=== PATIENT | male | born 1945 | race Caucasian/White ===

== ENCOUNTER → 2019-11-19 08:16 | Outpatient (BNVA) | payer MEDICARE, SELFPAY | PROVIDERS: PCP Internal Medicine; Referring Provider Internal Medicine; Visit Provider Internal Medicine | DX: I48.19 Other persistent atrial fibrillation (principal); Z51.81 Encounter for therapeutic drug level monitoring; Z79.01 Long term (current) use of anticoagulants | CPT/HCPCS: 85610; 99211 ==

== ENCOUNTER → 2019-12-07 08:31 | Outpatient (BNVA) | payer MEDICARE, SELFPAY | PROVIDERS: PCP Internal Medicine; Referring Provider Internal Medicine; Visit Provider Internal Medicine | DX: I48.19 Other persistent atrial fibrillation (principal); Z51.81 Encounter for therapeutic drug level monitoring; Z79.01 Long term (current) use of anticoagulants | CPT/HCPCS: 85610; 99211 ==

== ENCOUNTER → 2019-12-23 08:22 | Outpatient (BNVA) | payer MEDICARE, SELFPAY | PROVIDERS: PCP Internal Medicine; Referring Provider Internal Medicine; Visit Provider Internal Medicine | DX: I48.19 Other persistent atrial fibrillation (principal); I10 Essential (primary) hypertension; E78.5 Hyperlipidemia, unspecified; Z79.01 Long term (current) use of anticoagulants; Z79.899 Other long term (current) drug therapy | CPT/HCPCS: 99212 ==

== ENCOUNTER 2019-12-25 09:47 | Outpatient (REF) | payer MEDICARE, SELFPAY ==
[2019-12-25 11:49] LABS: Digoxin 0.5 ng/mL (0.8-2.0)
== END 2019-12-25 09:48 | disposition home or self-care (01) ==
LOC: HO.10HDLR 09:47
PROVIDERS: Visit Provider Internal Medicine
DX: I48.19 Other persistent atrial fibrillation (principal)
CPT/HCPCS: 80162

== ENCOUNTER → 2020-01-06 08:03 | Outpatient (BNVA) | payer MEDICARE, SELFPAY | PROVIDERS: PCP Internal Medicine; Visit Provider Internal Medicine | DX: I48.19 Other persistent atrial fibrillation (principal); Z51.81 Encounter for therapeutic drug level monitoring; Z79.01 Long term (current) use of anticoagulants | CPT/HCPCS: 85610; 99211 ==

== ENCOUNTER 2020-01-12 07:43 | Outpatient (REF) | payer MEDICARE, SELFPAY ==
[2020-01-12 10:13] LABS: MANUAL DIFF FLAG NO
[2020-01-12 10:14] LABS: Basophils Absolute Auto 0.1 X10*3/uL (0.0-0.2); Basophils Percent Auto 0.5 % (0-2); Eosinophils Absolute Auto 0.2 X10*3/uL (0.0-0.4); Eosinophils Percent Auto 1.5 % (0-4); Hematocrit 38.2 % (42-52); Hemoglobin 12.9 g/dl (14.0-18.0); Lymphocytes Absolute Auto 2.3 X10*3/uL (1.2-4.9); Lymphocytes Percent Auto 23.2 % (20-40); Mean Corpuscular HGB Conc 33.8 g/dl (31.0-36.0); Mean Corpuscular Hemoglobin 31.6 pg (27.0-33.0); Mean Corpuscular Volume 93.6 fL (80-98); Mean Platelet Volume 11.4 fL (9.4-12.4); Monocytes Absolute Auto 0.9 X10*3/uL (0.1-1.2); Monocytes Percent Auto 9.4 % (2-11); Neutrophils Absolute Auto 6.3 X10*3/uL (2.0-8.3); Neutrophils Percent Auto 64.4 % (45-73); Platelet Count 149 X10*3/uL (160-400); Red Blood Count 4.08 X10*6/uL (4.60-5.80); Red Cell Distribution Width 13.5 % (11.0-16.0); White Blood Count 9.8 X10*3/uL (4.8-10.8)
[2020-01-12 10:32] LABS: Alanine Aminotransferase 16 U/L (0-40); Albumin Level 4.1 g/dL (3.5-5.0); Alkaline Phosphatase 95 U/L (39-117); Anion Gap 14 (12-20); Aspartate Amino Transferase 15 U/L (5-37); Bilirubin Total 0.5 mg/dL (0.0-1.0); Blood Urea Nitrogen 16 mg/dL (9-16); Calcium 8.7 mg/dL (8.4-10.2); Carbon Dioxide 27 mmol/L (22-29); Chloride 104 mmol/L (96-108); Cholesterol 141 mg/dL; Estimated Glomerular Filt Rate > 60; Glucose Fasting 100 mg/dL (60-99); HDL Cholesterol 41 mg/dL; LDL Cholesterol Calculated 84 mg/dl; Potassium 4.8 mmol/l (3.3-5.1); Sodium 140 mmol/L (135-145); Total Protein 6.5 g/dL (6.5-8.0); Triglycerides 82 mg/dL
[2020-01-12 10:40] LABS: B Type Natriuretic Peptide 132 pg/mL (<100)
[2020-01-12 10:53] LABS: T4 Thyroxine 6.5 ug/dL (4.5-12.0)
[2020-01-12 10:54] LABS: Thyroid Stimulating Hormone 1.73 uIU/mL (0.32-4.0)
[2020-01-12 11:03] LABS: Estimated Average Glucose 117 mg/dL; Hemoglobin A1c % 5.7 %
[2020-01-12 11:13] LABS: Folate > 20.0 ng/mL (> or = 4.0); Vitamin B12 511 pg/mL (200-900)
== END 2020-01-12 07:44 | disposition home or self-care (01) ==
LOC: HO.10HDL 07:43
PROVIDERS: Visit Provider Internal Medicine
DX: I48.91 Unspecified atrial fibrillation (principal); I10 Essential (primary) hypertension; E78.00 Pure hypercholesterolemia, unspecified; R73.01 Impaired fasting glucose; E66.9 Obesity, unspecified; I73.9 Peripheral vascular disease, unspecified
CPT/HCPCS: 36415; 80053; 80061; 82607; 82746; 83036; 83880; 84436; 84443; 85025

== ENCOUNTER 2020-01-20 09:12 | Outpatient (REF) | payer MEDICARE, SELFPAY ==
[2020-01-20 10:29] LABS: MANUAL DIFF FLAG NO
[2020-01-20 10:41] LABS: Basophils Absolute Auto 0.1 X10*3/uL (0.0-0.2); Basophils Percent Auto 0.5 % (0-2); Eosinophils Absolute Auto 0.2 X10*3/uL (0.0-0.4); Eosinophils Percent Auto 1.6 % (0-4); Hematocrit 40.6 % (42-52); Hemoglobin 13.4 g/dl (14.0-18.0); Immature Retic Fraction 18.7 % (2.3-13.4); Lymphocytes Absolute Auto 2.3 X10*3/uL (1.2-4.9); Mean Platelet Volume 11.4 fL (9.4-12.4); Monocytes Absolute Auto 0.9 X10*3/uL (0.1-1.2); Monocytes Percent Auto 9.3 % (2-11); Neutrophils Absolute Auto 6.4 X10*3/uL (2.0-8.3); Neutrophils Percent Auto 64.6 % (45-73); Platelet Count 159 X10*3/uL (160-400); Red Blood Count 4.32 X10*6/uL (4.60-5.80); Red Cell Distribution Width 13.5 % (11.0-16.0); Retic HGB Equivalent 35.3 pg (30.0-35.0); Reticulocyte Percent 2.2 % (0.5-1.8); Reticulocytes Absolute 0.097 X10*6/uL (0.026-0.095)
[2020-01-20 11:16] LABS: Iron 94 mcg/dL (45-160); Percent Iron Saturation 28 % (15-50); Total Iron Binding Capacity 337 mcg/dL (228-428); Unsaturated Iron Binding 243 ug/dL
[2020-01-20 11:38] LABS: Ferritin 174 ng/mL (20-250)
== END 2020-01-20 09:13 | disposition home or self-care (01) ==
LOC: HO.10HDL 09:12
PROVIDERS: Visit Provider Internal Medicine
DX: D64.9 Anemia, unspecified (principal)
CPT/HCPCS: 36415; 82728; 83540; 85025; 85045

== ENCOUNTER → 2020-02-09 08:08 | Outpatient (BNVA) | payer MEDICARE, SELFPAY | PROVIDERS: PCP Internal Medicine; Visit Provider Internal Medicine | DX: I48.19 Other persistent atrial fibrillation (principal); Z51.81 Encounter for therapeutic drug level monitoring; Z79.01 Long term (current) use of anticoagulants | CPT/HCPCS: 85610; 99211 ==

== ENCOUNTER → 2020-03-10 08:03 | Outpatient (BNVA) | payer MEDICARE, SELFPAY | PROVIDERS: PCP Internal Medicine; Visit Provider Internal Medicine | DX: I48.19 Other persistent atrial fibrillation (principal); Z51.81 Encounter for therapeutic drug level monitoring; Z79.01 Long term (current) use of anticoagulants | CPT/HCPCS: 85610; 99211 ==

== ENCOUNTER → 2020-04-07 08:09 | Outpatient (BNVA) | payer MEDICARE, SELFPAY | PROVIDERS: PCP Internal Medicine; Visit Provider Internal Medicine | DX: I48.19 Other persistent atrial fibrillation (principal); Z51.81 Encounter for therapeutic drug level monitoring; Z79.01 Long term (current) use of anticoagulants | CPT/HCPCS: 85610; 99211 ==

== ENCOUNTER → 2020-05-05 08:03 | Outpatient (BNVA) | payer MEDICARE, SELFPAY | PROVIDERS: PCP Internal Medicine; Visit Provider Internal Medicine | DX: I48.19 Other persistent atrial fibrillation (principal); Z51.81 Encounter for therapeutic drug level monitoring; Z79.01 Long term (current) use of anticoagulants | CPT/HCPCS: 85610; 99211 ==

== ENCOUNTER 2020-05-05 08:31 | Outpatient (REF) | payer MEDICARE, SELFPAY ==
[2020-05-05 10:17] LABS: MANUAL DIFF FLAG NO
[2020-05-05 10:26] LABS: Basophils Absolute Auto 0.1 X10*3/uL (0.0-0.2); Basophils Percent Auto 0.7 % (0-2); Eosinophils Absolute Auto 0.1 X10*3/uL (0.0-0.4); Eosinophils Percent Auto 1.4 % (0-4); Hematocrit 40.7 % (42-52); Hemoglobin 13.7 g/dl (14.0-18.0); Imm Gran Abs Auto 0.07 X10*3/uL (0.00-0.03); Imm Gran Pct Auto 0.7 % (0.0-0.4); Lymphocytes Absolute Auto 2.5 X10*3/uL (1.2-4.9); Lymphocytes Percent Auto 25.1 % (20-40); Mean Corpuscular HGB Conc 33.7 g/dl (31.0-36.0); Mean Corpuscular Hemoglobin 30.8 pg (27.0-33.0); Mean Corpuscular Volume 91.5 fL (80-98); Mean Platelet Volume 11.2 fL (9.4-12.4); Monocytes Absolute Auto 0.8 X10*3/uL (0.1-1.2); Monocytes Percent Auto 8.4 % (2-11); Neutrophils Absolute Auto 6.4 X10*3/uL (2.0-8.3); Neutrophils Percent Auto 63.7 % (45-73); Platelet Count 133 X10*3/uL (160-400); Red Blood Count 4.45 X10*6/uL (4.60-5.80); Red Cell Distribution Width 13.8 % (11.0-16.0)
[2020-05-05 10:27] LABS: Immature Retic Fraction 14.3 % (2.3-13.4); Retic HGB Equivalent 35.3 pg (30.0-35.0); Reticulocyte Percent 1.8 % (0.5-1.8); Reticulocytes Absolute 0.081 X10*6/uL (0.026-0.095)
[2020-05-05 11:30] LABS: Alanine Aminotransferase 17 U/L (0-40); Albumin Level 4.4 g/dL (3.5-5.0); Alkaline Phosphatase 93 U/L (39-117); Anion Gap 10 (12-20); Aspartate Amino Transferase 16 U/L (5-37); Bilirubin Total 0.8 mg/dL (0.0-1.0); Blood Urea Nitrogen 22 mg/dL (9-16); Calcium 9.5 mg/dL (8.4-10.2); Carbon Dioxide 30 mmol/L (22-29); Chloride 103 mmol/L (96-108); Cholesterol 159 mg/dL; Estimated Glomerular Filt Rate > 60; Glucose Random 101 mg/dL (60-115); HDL Cholesterol 52 mg/dL; LDL Cholesterol Calculated 91 mg/dl; Potassium 5.2 mmol/L (3.3-5.1); Sodium 138 mmol/L (135-145); Total Protein 6.8 g/dL (6.5-8.0); Triglycerides 81 mg/dL
[2020-05-05 11:34] LABS: Free T4 (Free Thyroxine) 1.15 ng/dL (0.71-1.85)
[2020-05-05 11:39] LABS: Ferritin 111 ng/mL (20-250)
[2020-05-05 11:52] LABS: Iron 106 mcg/dL (45-160); Percent Iron Saturation 28 % (15-50); Total Iron Binding Capacity 372 mcg/dL (228-428); Unsaturated Iron Binding 266 ug/dL
[2020-05-05 11:55] LABS: Folate > 20.0 ng/mL (> or = 4.0); Vitamin B12 438 pg/mL (200-900)
== END 2020-05-05 08:32 | disposition home or self-care (01) ==
LOC: HO.10HDL 08:31
PROVIDERS: Visit Provider Internal Medicine
DX: E78.00 Pure hypercholesterolemia, unspecified (principal); D64.9 Anemia, unspecified
CPT/HCPCS: 36415; 80053; 80061; 82607; 82728; 82746; 83540; 84439; 84443; 85025; 85045

== ENCOUNTER 2020-06-02 08:00 | Outpatient (REF) | payer MEDICARE, SELFPAY ==
--- NOTE | ~2020-06-02 | XR_ITS ---
EXAMINATION: XR SHOULDER, BILATERAL CLINICAL INFORMATION: Pain in shoulder. COMPARISON: None TECHNIQUE: 3 views of the right and 3 views of the left shoulder. FINDINGS: RIGHT SHOULDER: There is moderate osteoarthritis of the acromioclavicular joint, unchanged. The glenohumeral joint is unchanged. Question Hill-Sachs deformity versus normal variation. LEFT SHOULDER: There is mild arthrosis of the acromioclavicular joint. Glenohumeral joint: There is joint space narrowing and marginal osteophytes indicative of at least moderate osteoarthritis. Incidental note is made of calcification of the dorsal aorta. XR/XR shoulder LT min 2V IMPRESSION: RIGHT SHOULDER: Osteoarthritis of the acromioclavicular joint. Question Hill-Sachs deformity versus normal variation. LEFT SHOULDER: Osteoarthritis of the acromioclavicular joint. Moderate osteoarthritis of the glenohumeral joint.
--- NOTE | ~2020-06-02 | XR_ITS ---
EXAMINATION: XR SHOULDER, BILATERAL CLINICAL INFORMATION: Pain in shoulder. COMPARISON: None TECHNIQUE: 3 views of the right and 3 views of the left shoulder. FINDINGS: RIGHT SHOULDER: There is moderate osteoarthritis of the acromioclavicular joint, unchanged. The glenohumeral joint is unchanged. Question Hill-Sachs deformity versus normal variation. LEFT SHOULDER: There is mild arthrosis of the acromioclavicular joint. Glenohumeral joint: There is joint space narrowing and marginal osteophytes indicative of at least moderate osteoarthritis. Incidental note is made of calcification of the dorsal aorta. XR/XR shoulder RT min 2V IMPRESSION: RIGHT SHOULDER: Osteoarthritis of the acromioclavicular joint. Question Hill-Sachs deformity versus normal variation. LEFT SHOULDER: Osteoarthritis of the acromioclavicular joint. Moderate osteoarthritis of the glenohumeral joint.
== END 2020-06-02 08:01 | disposition home or self-care (01) ==
LOC: HO.HOSX 08:00
PROVIDERS: PCP Internal Medicine; Visit Provider Internal Medicine
DX: M75.101 Unspecified rotator cuff tear or rupture of right shoulder, not specified as traumatic (principal); M75.102 Unspecified rotator cuff tear or rupture of left shoulder, not specified as traumatic; I48.19 Other persistent atrial fibrillation; Z51.81 Encounter for therapeutic drug level monitoring; Z79.01 Long term (current) use of anticoagulants
CPT/HCPCS: 20610; 73030; 85610; 99202; 99211; J1100

== ENCOUNTER → 2020-06-30 08:02 | Outpatient (BNVA) | payer MEDICARE, SELFPAY | PROVIDERS: PCP Internal Medicine; Visit Provider Internal Medicine | DX: I48.19 Other persistent atrial fibrillation (principal); Z51.81 Encounter for therapeutic drug level monitoring; Z79.01 Long term (current) use of anticoagulants | CPT/HCPCS: 85610; 99211 ==

== ENCOUNTER → 2020-07-15 07:55 | Outpatient (BNVA) | payer MEDICARE, SELFPAY | PROVIDERS: PCP Internal Medicine; Visit Provider Internal Medicine | DX: I48.19 Other persistent atrial fibrillation (principal); Z51.81 Encounter for therapeutic drug level monitoring; Z79.01 Long term (current) use of anticoagulants | CPT/HCPCS: 85610; 99211 ==

== ENCOUNTER → 2020-08-12 07:58 | Outpatient (BNVA) | payer MEDICARE, SELFPAY | PROVIDERS: PCP Internal Medicine; Visit Provider Internal Medicine | DX: I48.19 Other persistent atrial fibrillation (principal); Z51.81 Encounter for therapeutic drug level monitoring; Z79.01 Long term (current) use of anticoagulants | CPT/HCPCS: 85610; 99211 ==

== ENCOUNTER → 2020-09-14 08:12 | Outpatient (BNVA) | payer MEDICARE, SELFPAY | PROVIDERS: PCP Internal Medicine; Visit Provider Internal Medicine | DX: I48.19 Other persistent atrial fibrillation (principal); Z51.81 Encounter for therapeutic drug level monitoring; Z79.01 Long term (current) use of anticoagulants | CPT/HCPCS: 85610; 99211 ==

== ENCOUNTER → 2020-09-22 08:37 | Outpatient (BNVA) | payer MEDICARE, SELFPAY | PROVIDERS: PCP Internal Medicine; Referring Provider Internal Medicine; Visit Provider Surgery | DX: D17.1 Benign lipomatous neoplasm of skin and subcutaneous tissue of trunk (principal) | CPT/HCPCS: 99202 ==

== ENCOUNTER → 2020-10-11 08:01 | Outpatient (BNVA) | payer MEDICARE, SELFPAY | PROVIDERS: PCP Internal Medicine; Visit Provider Internal Medicine | DX: I48.19 Other persistent atrial fibrillation (principal); Z51.81 Encounter for therapeutic drug level monitoring; Z79.01 Long term (current) use of anticoagulants | CPT/HCPCS: 85610; 99211 ==

== ENCOUNTER 2020-10-13 13:35 | Outpatient (REF) | payer MEDICARE, SELFPAY ==
[2020-10-13 13:46] VITALS: BP 118/59; PULSE 77; RESP 16; TEMP 36.6; O2SAT 97
[2020-10-13 13:47] VITALS: BMI 32.8
--- NOTE | 2020-10-13 14:32 | W.PM.OPN ---
Operative Note Operative Note Date of Service: 10/13/20 Narrative: Preop diagnosis: Lipoma anterior chest wall Postop diagnosis: The same Procedure: Excision of lipoma, anterior chest wall under local anesthesia Surgeon: Jonathan Watkins MD External Grinder Tool: CATALINA Quesada The patient is a 75-year-old male with note of a lipomatous mass on the anterior chest wall at the sternum. This measured about 4 cm in size. He understood the technique of excision under local anesthesia. Was aware of the risks, benefits and alternatives. Was brought to the minor procedure room and placed supine. The area of the lipoma was prepped and draped lidocaine 1% was used for local anesthesia. An incision made on the skin overlying this lipoma using a blade 15. This was carried down through the full-thickness of skin and subcutaneous fat. We continued to do the dissection of the Metzenbaum scissors until we visualized the lipoma. I sharply dissected the lipoma off of the rest of subcutaneous layer using the Metzenbaum scissors. This was eventually delivered and sent as specimen. I irrigated the area of excision and closed the incision with full-thickness nylon 3-0 interrupted sutures. Dressings were applied The patient tolerated procedure well there were no complications noted. Estimated blood loss about 3 cc.
== END 2020-10-13 13:36 | disposition home or self-care (01) ==
LOC: HO.MS 13:35
PROVIDERS: PCP Internal Medicine; Visit Provider Surgery
PROC: (CPT 11406; principal; 2020-10-13 13:50)
DX: D17.1 Benign lipomatous neoplasm of skin and subcutaneous tissue of trunk (principal); R07.89 Other chest pain; R22.2 Localized swelling, mass and lump, trunk
CPT/HCPCS: 11406; 88304

== ENCOUNTER → 2020-10-26 10:43 | Outpatient (BNVA) | payer MEDICARE, SELFPAY | PROVIDERS: PCP Internal Medicine; Referring Provider Internal Medicine; Visit Provider Surgery | DX: Z48.817 Encounter for surgical aftercare following surgery on the skin and subcutaneous tissue (principal); Z87.2 Personal history of diseases of the skin and subcutaneous tissue | CPT/HCPCS: 99212 ==

== ENCOUNTER → 2020-11-08 08:05 | Outpatient (BNVA) | payer MEDICARE, SELFPAY | PROVIDERS: PCP Internal Medicine; Visit Provider Internal Medicine | DX: I48.19 Other persistent atrial fibrillation (principal); Z51.81 Encounter for therapeutic drug level monitoring; Z79.01 Long term (current) use of anticoagulants | CPT/HCPCS: 85610; 99211 ==

== ENCOUNTER → 2020-11-29 07:56 | Outpatient (BNVA) | payer MEDICARE, SELFPAY | PROVIDERS: PCP Internal Medicine; Visit Provider Internal Medicine | DX: I48.0 Paroxysmal atrial fibrillation (principal); Z51.81 Encounter for therapeutic drug level monitoring; Z79.01 Long term (current) use of anticoagulants | CPT/HCPCS: 85610; 99211 ==

== ENCOUNTER → 2020-12-22 08:06 | Outpatient (BNVA) | payer MEDICARE, SELFPAY | PROVIDERS: PCP Internal Medicine; Referring Provider Internal Medicine; Visit Provider Internal Medicine | DX: I48.19 Other persistent atrial fibrillation (principal); I10 Essential (primary) hypertension; E78.5 Hyperlipidemia, unspecified; R60.0 Localized edema | CPT/HCPCS: 93005; 99212 ==

== ENCOUNTER → 2020-12-28 07:54 | Outpatient (BNVA) | payer MEDICARE, SELFPAY | PROVIDERS: PCP Internal Medicine; Visit Provider Internal Medicine | DX: I48.19 Other persistent atrial fibrillation (principal); Z51.81 Encounter for therapeutic drug level monitoring; Z79.01 Long term (current) use of anticoagulants | CPT/HCPCS: 85610; 99211 ==

== ENCOUNTER 2021-01-20 07:34 | Outpatient (REF) | payer MEDICARE, SELFPAY ==
[2021-01-20 10:14] LABS: MANUAL DIFF FLAG NO
[2021-01-20 10:22] LABS: Basophils Percent Auto 0.4 % (0-2); Eosinophils Absolute Auto 0.2 X10*3/uL (0.0-0.4); Eosinophils Percent Auto 2.4 % (0-4); Hematocrit 40.4 % (42.0-52.0); Hemoglobin 13.3 g/dl (14.0-18.0); Imm Gran Abs Auto 0.05 X10*3/uL (0.00-0.03); Imm Gran Pct Auto 0.5 % (0.0-0.4); Immature Retic Fraction 15.3 % (2.3-13.4); Lymphocytes Absolute Auto 2.3 X10*3/uL (1.2-4.9); Lymphocytes Percent Auto 24.8 % (20-40); Mean Corpuscular HGB Conc 32.9 g/dl (31.0-36.0); Mean Corpuscular Hemoglobin 30.6 pg (27.0-33.0); Mean Corpuscular Volume 92.9 fL (80.0-98.0); Mean Platelet Volume 11.4 fL (9.4-12.4); Monocytes Absolute Auto 0.9 X10*3/uL (0.1-1.2); Monocytes Percent Auto 9.4 % (2-11); Neutrophils Absolute Auto 5.8 x10*3/uL (2.0-8.3); Neutrophils Percent Auto 62.5 % (45-73); Platelet Count 136 X10*3/uL (160-400); Red Blood Count 4.35 X10*6/uL (4.60-5.80); Red Cell Distribution Width 13.4 % (11.0-16.0); Reticulocyte Percent 1.9 % (0.5-1.8); Reticulocytes Absolute 0.081 X10*6/uL (0.026-0.095); White Blood Count 9.3 X10*3/uL (4.8-10.8)
[2021-01-20 10:30] LABS: Estimated Average Glucose 114 mg/dL; Hemoglobin A1c % 5.6 %
[2021-01-20 10:42] LABS: Alanine Aminotransferase 18 U/L (0-40); Albumin Level 4.1 g/dL (3.5-5.0); Alkaline Phosphatase 89 U/L (39-117); Anion Gap 14 (12-20); Aspartate Amino Transferase 18 U/L (5-37); Bilirubin Total 0.7 mg/dL (0.0-1.0); Blood Urea Nitrogen 17 mg/dL (9-16); Calcium 8.9 mg/dL (8.4-10.2); Carbon Dioxide 23 mmol/L (22-29); Chloride 103 mmol/L (96-108); Estimated Glomerular Filt Rate > 60; Glucose Random 125 mg/dL (60-115); Iron 81 mcg/dL (45-160); Percent Iron Saturation 24 % (15-50); Potassium 4.3 mmol/L (3.3-5.1); Sodium 136 mmol/L (135-145); Total Iron Binding Capacity 336 mcg/dL (228-428); Total Protein 6.5 g/dL (6.5-8.0); Unsaturated Iron Binding 255 ug/dL
[2021-01-20 11:07] LABS: Ferritin 140 ng/mL (20-250); Free T4 (Free Thyroxine) 0.85 ng/dL (0.71-1.85); Thyroid Stimulating Hormone 2.38 uIU/mL (0.32-4.0)
[2021-01-20 11:10] LABS: Folate > 20.0 ng/mL (> or = 4.0); Vitamin B12 465 pg/mL (200-900)
[2021-01-20 11:17] LABS: Digoxin < 0.3 ng/mL (0.8-2.0)
== END 2021-01-20 07:35 | disposition home or self-care (01) ==
LOC: HO.10HDL 07:34
PROVIDERS: Visit Provider Internal Medicine
DX: I10 Essential (primary) hypertension (principal); I48.19 Other persistent atrial fibrillation; Z79.899 Other long term (current) drug therapy
CPT/HCPCS: 36415; 80053; 80162; 82607; 82728; 82746; 83036; 83540; 84439; 84443; 85025; 85045

== ENCOUNTER → 2021-01-26 08:07 | Outpatient (BNVA) | payer MEDICARE, SELFPAY | PROVIDERS: PCP Internal Medicine; Visit Provider Internal Medicine | DX: I48.19 Other persistent atrial fibrillation (principal); Z51.81 Encounter for therapeutic drug level monitoring; Z79.01 Long term (current) use of anticoagulants | CPT/HCPCS: 85610 ==

== ENCOUNTER → 2021-02-28 07:58 | Outpatient (BNVA) | payer MEDICARE, SELFPAY | PROVIDERS: PCP Internal Medicine; Visit Provider Internal Medicine | DX: I48.19 Other persistent atrial fibrillation (principal); Z51.81 Encounter for therapeutic drug level monitoring; Z79.01 Long term (current) use of anticoagulants | CPT/HCPCS: 85610; 99211 ==

== ENCOUNTER 2021-03-13 08:00 | Outpatient (RCR) | payer MEDICARE, SELFPAY ==
--- NOTE | 2021-02-02 09:36 | MHC.PT.EP ---
[facility] [place] Office [place] Office [place] Office [address] Efrain Mays [address] [phone] F: [phone] F: [phone] F: [phone] F: [phone] Physical Therapy Plan of Care Date of Evaluation: Date of Surgery: Diagnosis: PAIN IN RIGHT AND LEFT SHOULDER Assessment: 76 YO MALE REF TO PT FOR SHELBY SH PAIN- ON XRAY:RIGHT SHOULDER: 06/03/20 Osteoarthritis of the acromioclavicular joint. Question Hill-Sachs deformity versus normal variation. LEFT SHOULDER: Osteoarthritis of the acromioclavicular joint. Moderate osteoarthritis of the glenohumeral joint. Pt HAS HAD SHELBY SH INJECTIONS W MILD RELIEF- OBJECTIVE FINDINGS: LIMITED AROM IN CERV SPINE WELL SHELBY SH JTs- ESPEC ROTATION, (+) SOFT TISSUE TENDERNESS AND PECT TIGHTNESS, DECR STRENGTH IN POST RC AND DECR SCAP STAB SHELBY, DECR POSTURAL AWARENESS, AND SHELBY SH Jt PAIN- HE DENIES RADICULAR SXS INTO UEs AT THIS TIME. FUNCTIONALLY, Pt'S OVERALL ADLs AND FUNCT MOB ARE IMPACTED DUE TO SHELBY SH AND CERV PAIN AND STIFFNESS. Pt WOULD BENEFIT FROM PT TO ADDRESS THE ABOVE FINDINGS FOR SHELBY SH PAINAS WITH A CERVICAL SPINE INFLUENCE. Frequency and Duration: The patient will be seen 2 x WK x 5 WKS Short Term Goals: Pt DEMON INDEP SELF CORRECT POSTURE IN 2 WKS Pt DEMON INCR IN AROM CERV AND SHELBY SH- WITH INDEP SELF CORRECTION AND REDUCTION OF UT COMPEN IN 2 WKS Pt'S SHELBY SH PAIN DECR TO 3-4/10 W GEN ADLs IN 2 WKS Consulting Sales Manager Goals: Pt DEMON IND HEP AND SELF-SX MGMT STRATEGIES IN 5 WKS Pt RESUME REG ADLs AND INCR FUNCT MOB JEISON EVIDENT W IMPROVED SPADI SCORE BY AT LEAST 10 POINTS (AT EVAL 124/130) IN 5WKS Pt W INCR SCAP STAB AND STRENGTH IN AVAIL AROM SHELBY SH INCR BY 1/2 -1 GRADE IN 5 WKS Treatment Plan: Modalities to reduce pain, spasms and effusion. Manual therapy to restore motion and function. Therapeutic exercise to improve strength and flexibility. Neuromuscular re-education for posture and balance. Therapeutic activities to return to functional activities of daily living. Electronically signed by: Courtney Amaya PT Please sign and return to therapist. Thank you for your referral.
--- NOTE | 2021-03-13 08:48 | MHC.PT.DC ---
[facility] [place] Office [place] Office [place] Office [address] Efrain Mays 140 [facility] [phone] F: [phone] F: [phone] F: [phone] F: [phone] Physical Therapy Discharge Report Diagnosis: PAIN IN RIGHT AND LEFT SHOULDER Date of Surgery: Date of Evaluation: 02/02/21 Date of Discharge: 03/13/21 Treatments to Date: 9 Cancellations to Date: 0 No Shows to Date: 0 Discharge Status: Achieved Goals Improved Function Independent with HEP Discharge Summary: Pt MT PT GOALS AT THIS TIME- HE HAS REDUCED PAIN IN SHELBY SH, INCR ACTIVITY JEISON, IMPROVED POSTURE, ENHANCED UPPER TRUNK / SH STRENGTH, AND IMPROVED FUNCTIONAL SPADI SCORE ( 11/130) AND AT [facility] HIS SCORE WAS 124/130- SIGNIF PROGRESS Electronically signed by: Courtney Amaya,PT Please sign and return to therapist. Thank you for your referral.
== END 2021-03-13 08:49 | disposition home or self-care (01) ==
LOC: HO.PT 08:00
PROVIDERS: PCP Internal Medicine; Visit Provider Internal Medicine
DX: M25.511 Pain in right shoulder (principal); M25.512 Pain in left shoulder; G89.29 Other chronic pain
CPT/HCPCS: 97110; 97162

== ENCOUNTER → 2021-03-28 08:04 | Outpatient (BNVA) | payer MEDICARE, SELFPAY | PROVIDERS: PCP Internal Medicine; Visit Provider Internal Medicine | DX: I48.19 Other persistent atrial fibrillation (principal); Z51.81 Encounter for therapeutic drug level monitoring; Z79.01 Long term (current) use of anticoagulants | CPT/HCPCS: 85610; 99211 ==

== ENCOUNTER → 2021-04-25 08:01 | Outpatient (BNVA) | payer MEDICARE, SELFPAY | PROVIDERS: PCP Internal Medicine; Visit Provider Internal Medicine | DX: I48.19 Other persistent atrial fibrillation (principal); Z51.81 Encounter for therapeutic drug level monitoring; Z79.01 Long term (current) use of anticoagulants | CPT/HCPCS: 85610; 99211 ==

== ENCOUNTER 2021-05-15 07:53 | Outpatient (REF) | payer MEDICARE, SELFPAY ==
[2021-05-15 10:47] LABS: MANUAL DIFF FLAG NO
[2021-05-15 11:00] LABS: Estimated Average Glucose 114 mg/dL; Hemoglobin A1c % 5.6 %
[2021-05-15 11:03] LABS: Basophils Absolute Auto 0.1 X10*3/uL (0.0-0.2); Basophils Percent Auto 0.5 % (0-2); Eosinophils Absolute Auto 0.2 X10*3/uL (0.0-0.4); Eosinophils Percent Auto 2.4 % (0-4); Hematocrit 39.9 % (42.0-52.0); Imm Gran Abs Auto 0.07 X10*3/uL (0.00-0.03); Imm Gran Pct Auto 0.8 % (0.0-0.4); Lymphocytes Absolute Auto 2.6 X10*3/uL (1.2-4.9); Lymphocytes Percent Auto 28.5 % (20-40); Mean Corpuscular HGB Conc 32.6 g/dl (31.0-36.0); Mean Corpuscular Hemoglobin 30.4 pg (27.0-33.0); Mean Corpuscular Volume 93.2 fL (80.0-98.0); Mean Platelet Volume 11.3 fL (9.4-12.4); Monocytes Absolute Auto 0.9 X10*3/uL (0.1-1.2); Monocytes Percent Auto 9.7 % (2-11); Neutrophils Absolute Auto 5.3 x10*3/uL (2.0-8.3); Neutrophils Percent Auto 58.1 % (45-73); Platelet Count 130 X10*3/uL (160-400); Red Blood Count 4.28 X10*6/uL (4.60-5.80); White Blood Count 9.1 X10*3/uL (4.8-10.8)
[2021-05-15 11:16] LABS: Alanine Aminotransferase 19 U/L (0-40); Alkaline Phosphatase 96 U/L (39-117); Anion Gap 9 (12-20); Aspartate Amino Transferase 18 U/L (5-37); Bilirubin Total 0.6 mg/dL (0.0-1.0); Blood Urea Nitrogen 19 mg/dL (9-16); Calcium 9.1 mg/dL (8.4-10.2); Carbon Dioxide 27 mmol/L (22-29); Chloride 107 mmol/L (96-108); Cholesterol 150 mg/dL; Estimated Glomerular Filt Rate > 60; Glucose Random 132 mg/dL (60-115); HDL Cholesterol 41 mg/dL; LDL Cholesterol Calculated 93 mg/dl; Sodium 138 mmol/L (135-145); Total Protein 6.4 g/dL (6.5-8.0); Triglycerides 84 mg/dL
[2021-05-15 11:34] LABS: Free T4 (Free Thyroxine) 0.93 ng/dL (0.71-1.85); Thyroid Stimulating Hormone 2.25 uIU/mL (0.32-4.0)
[2021-05-15 11:35] LABS: Folate 19.9 ng/mL (> or = 4.0); Vitamin B12 433 pg/mL (200-900)
[2021-05-15 12:06] LABS: B Type Natriuretic Peptide 157 pg/mL (<100)
== END 2021-05-15 07:54 | disposition home or self-care (01) ==
LOC: HO.10HDL 07:53
PROVIDERS: Visit Provider Internal Medicine
DX: E78.00 Pure hypercholesterolemia, unspecified (principal); I10 Essential (primary) hypertension; R73.02 Impaired glucose tolerance (oral)
CPT/HCPCS: 36415; 80053; 80061; 82607; 82746; 83036; 83880; 84439; 84443; 85025

== ENCOUNTER → 2021-05-23 08:02 | Outpatient (BNVA) | payer MEDICARE, SELFPAY | PROVIDERS: PCP Internal Medicine; Visit Provider Internal Medicine | DX: I48.19 Other persistent atrial fibrillation (principal); Z51.81 Encounter for therapeutic drug level monitoring; Z79.01 Long term (current) use of anticoagulants | CPT/HCPCS: 85610; 99211 ==

== ENCOUNTER → 2021-06-20 08:02 | Outpatient (BNVA) | payer MEDICARE, SELFPAY | PROVIDERS: PCP Internal Medicine; Visit Provider Internal Medicine | DX: I48.19 Other persistent atrial fibrillation (principal); Z79.01 Long term (current) use of anticoagulants; Z51.81 Encounter for therapeutic drug level monitoring | CPT/HCPCS: 85610; 99211 ==

== ENCOUNTER → 2021-07-25 08:02 | Outpatient (BNVA) | payer MEDICARE, SELFPAY | PROVIDERS: PCP Internal Medicine; Visit Provider Internal Medicine | DX: I48.19 Other persistent atrial fibrillation (principal); Z79.01 Long term (current) use of anticoagulants; Z51.81 Encounter for therapeutic drug level monitoring | CPT/HCPCS: 85610; 99211 ==

== ENCOUNTER → 2021-08-22 07:58 | Outpatient (BNVA) | payer MEDICARE, SELFPAY | PROVIDERS: PCP Internal Medicine; Visit Provider Internal Medicine | DX: I48.19 Other persistent atrial fibrillation (principal); Z51.81 Encounter for therapeutic drug level monitoring; Z79.01 Long term (current) use of anticoagulants | CPT/HCPCS: 85610; 99211 ==

== ENCOUNTER 2021-08-31 10:26 | Outpatient (REF) | payer MEDICARE, SELFPAY ==
[2021-08-31 13:38] LABS: MANUAL DIFF FLAG NO
[2021-08-31 13:59] LABS: Basophils Percent Auto 0.5 % (0-2); Eosinophils Absolute Auto 0.2 X10*3/uL (0.0-0.4); Eosinophils Percent Auto 1.8 % (0-4); Hematocrit 39.3 % (42.0-52.0); Hemoglobin 13.2 g/dl (14.0-18.0); Imm Gran Abs Auto 0.06 X10*3/uL (0.00-0.03); Imm Gran Pct Auto 0.7 % (0.0-0.4); Immature Retic Fraction 13.7 % (2.3-13.4); Lymphocytes Absolute Auto 2.2 X10*3/uL (1.2-4.9); Lymphocytes Percent Auto 26.7 % (20-40); Mean Corpuscular HGB Conc 33.6 g/dl (31.0-36.0); Mean Corpuscular Hemoglobin 30.3 pg (27.0-33.0); Mean Corpuscular Volume 90.1 fL (80.0-98.0); Mean Platelet Volume 11.2 fL (9.4-12.4); Monocytes Absolute Auto 0.9 X10*3/uL (0.1-1.2); Monocytes Percent Auto 10.7 % (2-11); Neutrophils Absolute Auto 4.9 x10*3/uL (2.0-8.3); Neutrophils Percent Auto 59.6 % (45-73); Platelet Count 131 X10*3/uL (160-400); Red Blood Count 4.36 X10*6/uL (4.60-5.80); Red Cell Distribution Width 13.6 % (11.0-16.0); Retic HGB Equivalent 35.9 pg (30.0-35.0); Reticulocyte Percent 1.8 % (0.5-1.8); Reticulocytes Absolute 0.077 X10*6/uL (0.026-0.095); White Blood Count 8.2 X10*3/uL (4.8-10.8)
[2021-08-31 14:25] LABS: Alanine Aminotransferase 18 U/L (0-40); Albumin Level 4.3 g/dL (3.5-5.0); Alkaline Phosphatase 101 U/L (39-117); Anion Gap 14 (12-20); Aspartate Amino Transferase 20 U/L (5-37); Bilirubin Total 0.7 mg/dL (0.0-1.0); Blood Urea Nitrogen 17 mg/dL (9-16); Calcium 8.8 mg/dL (8.4-10.2); Carbon Dioxide 26 mmol/L (22-29); Chloride 103 mmol/L (96-108); Estimated Glomerular Filt Rate > 60; Glucose Random 78 mg/dL (60-115); Iron 117 mcg/dL (45-160); Percent Iron Saturation 35 % (15-50); Potassium 4.7 mmol/L (3.3-5.1); Sodium 138 mmol/L (135-145); Total Iron Binding Capacity 336 mcg/dL (228-428); Total Protein 6.8 g/dL (6.5-8.0); Unsaturated Iron Binding 219 ug/dL
[2021-08-31 14:41] LABS: Folate > 20.0 ng/mL (> or = 4.0); Vitamin B12 479 pg/mL (200-900)
[2021-08-31 14:47] LABS: Ferritin 189 ng/mL (20-250)
[2021-08-31 15:25] LABS: Digoxin 0.5 ng/mL (0.8-2.0)
== END 2021-08-31 10:27 | disposition home or self-care (01) ==
LOC: HO.10HDL 10:26
PROVIDERS: Visit Provider Internal Medicine
DX: I48.19 Other persistent atrial fibrillation (principal); M19.011 Primary osteoarthritis, right shoulder; M19.012 Primary osteoarthritis, left shoulder
CPT/HCPCS: 36415; 80053; 80162; 82607; 82728; 82746; 83540; 85025; 85045

== ENCOUNTER → 2021-09-19 08:03 | Outpatient (BNVA) | payer MEDICARE, SELFPAY | PROVIDERS: PCP Internal Medicine; Visit Provider Internal Medicine | DX: I48.19 Other persistent atrial fibrillation (principal); Z79.01 Long term (current) use of anticoagulants; Z51.81 Encounter for therapeutic drug level monitoring | CPT/HCPCS: 85610; 99211 ==

== ENCOUNTER → 2021-10-04 08:07 | Outpatient (BNVA) | payer MEDICARE, SELFPAY | PROVIDERS: PCP Internal Medicine; Visit Provider Internal Medicine | DX: I48.19 Other persistent atrial fibrillation (principal); Z79.01 Long term (current) use of anticoagulants; Z51.81 Encounter for therapeutic drug level monitoring | CPT/HCPCS: 85610; 99211 ==

== ENCOUNTER → 2021-11-01 07:59 | Outpatient (BNVA) | payer MEDICARE, SELFPAY | PROVIDERS: PCP Internal Medicine; Visit Provider Internal Medicine | DX: I48.19 Other persistent atrial fibrillation (principal); Z79.01 Long term (current) use of anticoagulants; Z51.81 Encounter for therapeutic drug level monitoring | CPT/HCPCS: 85610; 99211 ==

== ENCOUNTER → 2021-11-29 08:01 | Outpatient (BNVA) | payer MEDICARE, SELFPAY | PROVIDERS: PCP Internal Medicine; Visit Provider Internal Medicine | DX: I48.19 Other persistent atrial fibrillation (principal); Z79.01 Long term (current) use of anticoagulants; Z51.81 Encounter for therapeutic drug level monitoring | CPT/HCPCS: 85610; 99211 ==

== ENCOUNTER → 2021-12-27 08:02 | Outpatient (BNVA) | payer MEDICARE, SELFPAY | PROVIDERS: PCP Internal Medicine; Visit Provider Internal Medicine | DX: I48.19 Other persistent atrial fibrillation (principal); Z79.01 Long term (current) use of anticoagulants; Z51.81 Encounter for therapeutic drug level monitoring | CPT/HCPCS: 85610; 99211 ==

== ENCOUNTER → 2021-12-28 08:06 | Outpatient (BNVA) | payer MEDICARE, SELFPAY | PROVIDERS: PCP Internal Medicine; Referring Provider Internal Medicine; Visit Provider Internal Medicine | DX: I48.19 Other persistent atrial fibrillation (principal); I10 Essential (primary) hypertension; E78.5 Hyperlipidemia, unspecified; R60.0 Localized edema | CPT/HCPCS: 93005; 99212 ==

== ENCOUNTER 2021-12-28 08:54 | Outpatient (REF) | payer MEDICARE, SELFPAY ==
[2021-12-28 11:02] LABS: Alanine Aminotransferase 20 U/L (0-40); Albumin Level 4.1 g/dL (3.5-5.0); Alkaline Phosphatase 101 U/L (39-117); Anion Gap 14 (12-20); Aspartate Amino Transferase 19 U/L (5-37); Bilirubin Total 0.5 mg/dL (0.0-1.0); Blood Urea Nitrogen 20 mg/dL (9-16); Calcium 9.2 mg/dL (8.4-10.2); Carbon Dioxide 27 mmol/L (22-29); Chloride 105 mmol/L (96-108); Estimated Glomerular Filt Rate > 60; Glucose Random 102 mg/dL (60-115); Potassium 4.5 mmol/L (3.3-5.1); Sodium 141 mmol/L (135-145); Total Protein 6.7 g/dL (6.5-8.0)
[2021-12-28 11:49] LABS: Digoxin 0.5 ng/mL (0.8-2.0)
== END 2021-12-28 08:55 | disposition home or self-care (01) ==
LOC: HO.10HDL 08:54
PROVIDERS: Visit Provider Internal Medicine
DX: I73.9 Peripheral vascular disease, unspecified (principal); Z79.899 Other long term (current) drug therapy
CPT/HCPCS: 36415; 80053; 80162

== ENCOUNTER → 2022-01-24 08:06 | Outpatient (BNVA) | payer MEDICARE, SELFPAY | PROVIDERS: PCP Internal Medicine; Visit Provider Internal Medicine | DX: I48.19 Other persistent atrial fibrillation (principal); Z79.01 Long term (current) use of anticoagulants; Z51.81 Encounter for therapeutic drug level monitoring | CPT/HCPCS: 85610; 99211 ==

== ENCOUNTER → 2022-02-22 08:04 | Outpatient (BNVA) | payer MEDICARE, SELFPAY | PROVIDERS: PCP Internal Medicine; Visit Provider Internal Medicine | DX: I48.19 Other persistent atrial fibrillation (principal); Z79.01 Long term (current) use of anticoagulants; Z51.81 Encounter for therapeutic drug level monitoring | CPT/HCPCS: 85610; 99211 ==

== ENCOUNTER → 2022-03-21 08:03 | Outpatient (BNVA) | payer MEDICARE, SELFPAY | PROVIDERS: PCP Internal Medicine; Visit Provider Internal Medicine | DX: I48.19 Other persistent atrial fibrillation (principal); Z79.01 Long term (current) use of anticoagulants; Z51.81 Encounter for therapeutic drug level monitoring | CPT/HCPCS: 85610; 99211 ==

== ENCOUNTER → 2022-04-18 08:05 | Outpatient (BNVA) | payer MEDICARE, SELFPAY | PROVIDERS: PCP Internal Medicine; Visit Provider Internal Medicine | DX: I48.19 Other persistent atrial fibrillation (principal); Z79.01 Long term (current) use of anticoagulants; Z51.81 Encounter for therapeutic drug level monitoring | CPT/HCPCS: 85610; 99211 ==

== ENCOUNTER 2022-05-11 09:16 | Outpatient (REF) | payer MEDICARE, SELFPAY ==
[2022-05-11 10:34] LABS: MANUAL DIFF FLAG NO
[2022-05-11 11:01] LABS: Alanine Aminotransferase 18 U/L (0-40); Alkaline Phosphatase 91 U/L (39-117); Anion Gap 12 (12-20); Aspartate Amino Transferase 19 U/L (5-37); Bilirubin Total 0.7 mg/dL (0.0-1.0); Blood Urea Nitrogen 17 mg/dL (9-16); Calcium 9.3 mg/dL (8.4-10.2); Carbon Dioxide 27 mmol/L (22-29); Chloride 104 mmol/L (96-108); Cholesterol 159 mg/dL; Estimated Glomerular Filt Rate > 60; Glucose Random 140 mg/dL (60-115); HDL Cholesterol 41 mg/dL; LDL Cholesterol Calculated 96 mg/dl; Potassium 4.3 mmol/L (3.3-5.1); Sodium 139 mmol/L (135-145); Total Protein 6.3 g/dL (6.5-8.0); Triglycerides 111 mg/dL
[2022-05-11 11:32] LABS: Folate > 20.0 ng/mL (> or = 4.0); Free T4 (Free Thyroxine) 1.06 ng/dL (0.71-1.85); Thyroid Stimulating Hormone 2.08 uIU/mL (0.32-4.0); Vitamin B12 448 pg/mL (200-900)
[2022-05-11 12:19] LABS: Basophils Absolute Auto 0.1 X10*3/uL (0.0-0.2); Basophils Percent Auto 0.6 % (0-2); Eosinophils Absolute Auto 0.3 X10*3/uL (0.0-0.4); Eosinophils Percent Auto 2.9 % (0-4); Hematocrit 40.3 % (42.0-52.0); Hemoglobin 13.5 g/dl (14.0-18.0); Imm Gran Abs Auto 0.05 X10*3/uL (0.00-0.03); Imm Gran Pct Auto 0.6 % (0.0-0.4); Lymphocytes Absolute Auto 2.5 X10*3/uL (1.2-4.9); Lymphocytes Percent Auto 28.1 % (20-40); Mean Corpuscular HGB Conc 33.5 g/dl (31.0-36.0); Mean Corpuscular Hemoglobin 30.6 pg (27.0-33.0); Mean Corpuscular Volume 91.4 fL (80.0-98.0); Mean Platelet Volume 10.9 fL (9.4-12.4); Monocytes Absolute Auto 0.9 X10*3/uL (0.1-1.2); Monocytes Percent Auto 9.6 % (2-11); Neutrophils Absolute Auto 5.3 x10*3/uL (2.0-8.3); Neutrophils Percent Auto 58.2 % (45-73); Platelet Count 128 X10*3/uL (160-400); Red Blood Count 4.41 X10*6/uL (4.60-5.80); Red Cell Distribution Width 13.8 % (11.0-16.0); White Blood Count 9.1 X10*3/uL (4.8-10.8)
== END 2022-05-11 09:17 | disposition home or self-care (01) ==
LOC: HO.10HDL 09:16
PROVIDERS: Visit Provider Internal Medicine
DX: E78.00 Pure hypercholesterolemia, unspecified (principal)
CPT/HCPCS: 36415; 80053; 80061; 82607; 82746; 84439; 84443; 85025

== ENCOUNTER → 2022-05-16 08:05 | Outpatient (BNVA) | payer MEDICARE, SELFPAY | PROVIDERS: PCP Internal Medicine; Visit Provider Internal Medicine | DX: I48.19 Other persistent atrial fibrillation (principal); Z79.01 Long term (current) use of anticoagulants; Z51.81 Encounter for therapeutic drug level monitoring | CPT/HCPCS: 85610; 99211 ==

== ENCOUNTER → 2022-06-13 08:00 | Outpatient (BNVA) | payer MEDICARE, SELFPAY | PROVIDERS: PCP Internal Medicine; Visit Provider Internal Medicine | DX: I48.19 Other persistent atrial fibrillation (principal); Z79.01 Long term (current) use of anticoagulants; Z51.81 Encounter for therapeutic drug level monitoring | CPT/HCPCS: 85610; 99211 ==

== ENCOUNTER → 2022-07-11 07:58 | Outpatient (BNVA) | payer MEDICARE, SELFPAY | PROVIDERS: PCP Internal Medicine; Visit Provider Internal Medicine | DX: I48.19 Other persistent atrial fibrillation (principal); Z79.01 Long term (current) use of anticoagulants; Z51.81 Encounter for therapeutic drug level monitoring | CPT/HCPCS: 85610; 99211 ==

== ENCOUNTER → 2022-08-08 08:00 | Outpatient (BNVA) | payer MEDICARE, SELFPAY | PROVIDERS: PCP Internal Medicine; Visit Provider Internal Medicine | DX: I48.19 Other persistent atrial fibrillation (principal); Z51.81 Encounter for therapeutic drug level monitoring; Z79.01 Long term (current) use of anticoagulants | CPT/HCPCS: 85610; 99211 ==

== ENCOUNTER 2022-09-05 07:59 | Outpatient (AMB) | payer MEDICARE, SELFPAY ==
[2022-09-05 08:06] LABS: Prothrombin Time Whole Bld POC 40.7 sec (11.1-13.5); ~PT, ~INR - Anti Coag Clinic 3.4 (0.9-1.1)
--- NOTE | 2022-09-05 08:11 | MHC.OFFVISCO ---
Intake Intake Visit Reasons: Anticoagulation Allergies amiodarone Adverse Reaction (Unknown, Verified 09/05/22 08:02) hypothyroidism Medication List - Last Reconciled 09/05/22 by Merline Stacy RN atorvastatin 40 mg PO BEDTIME betamethasone dipropionate 0.05% appl topical BID PRN digoxin 125 mcg PO DAILY diltiazem HCl 240 mg PO DAILY furosemide 20 mg PO DAILY [JUXTA LITE Compression As directed] lisinopril 40 mg PO DAILY metoprolol succinate ER 200 mg PO DAILY warfarin 5 mg See Protocol PO DAILY Nursing Note NO CP,SOB,DIET/MED CHANGES,FALLS OR SX OF BLEEDING. HOLD WARFARIN TOMORROW(TOOK 5MGM TODAY)AND FOLLOW-UP IN 5 WEEKS(PT.REQUEST) WILL HAVE SOHA TODAY AND DESTINEE 2-3X WEEKLY GOOD UNDERSTANDING OF DOSING INSTR. Anti-Coag Initial Assessment Social Hx Patient Tobacco Use Status: Former Tobacco user Tobacco use type: Cigarette alcohol intake: current Alcohol intake frequency: a few times a week Coding Level of Care Code Est Patient Level 1 Diagnoses Current use of anticoagulant therapy Z79.01 Assessment & Plan Assessment & Plan (1) Current use of anticoagulant therapy: Code(s): Z79.01 - bed bug exterminator (current) use of 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
== END 2022-09-05 08:15 | disposition home or self-care (01) ==
LOC: HO.ACS 07:59
PROVIDERS: PCP Internal Medicine; Visit Provider Internal Medicine
DX: Z79.01 Long term (current) use of anticoagulants (principal)

== ENCOUNTER → 2022-09-05 07:59 | Outpatient (BNVA) | payer MEDICARE, SELFPAY | PROVIDERS: PCP Internal Medicine; Visit Provider Internal Medicine | DX: I48.19 Other persistent atrial fibrillation (principal); Z79.01 Long term (current) use of anticoagulants; Z51.81 Encounter for therapeutic drug level monitoring | CPT/HCPCS: 85610; 99211 ==

== ENCOUNTER 2022-10-10 07:59 | Outpatient (AMB) | payer MEDICARE, SELFPAY ==
--- NOTE | 2022-10-10 08:10 | MHC.OFFVISCO ---
Intake Intake Visit Reasons: Anticoagulation Allergies amiodarone Adverse Reaction (Unknown, Verified 10/10/22 08:05) hypothyroidism Medication List - Last Reconciled 10/10/22 by Christina Brown RN atorvastatin 40 mg PO BEDTIME betamethasone dipropionate 0.05% appl topical BID PRN digoxin 125 mcg PO DAILY diltiazem HCl 240 mg PO DAILY furosemide 20 mg PO DAILY [JUXTA LITE Compression As directed] lisinopril 40 mg PO DAILY metoprolol succinate ER 200 mg PO DAILY warfarin 5 mg See Protocol PO DAILY Nursing Note INR: 2.4- in therapeutic range Medications and supplements reviewed- no changes No changes in health, diet, medications, or supplements, Denies any signs and symptoms of bleeding or bruising or clotting. 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
[2022-10-10 08:11] LABS: Prothrombin Time Whole Bld POC 28.8 sec (11.1-13.5); ~PT, ~INR - Anti Coag Clinic 2.4 (0.9-1.1)
== END 2022-10-10 08:16 | disposition home or self-care (01) ==
LOC: HO.ACS 07:59
PROVIDERS: PCP Internal Medicine; Visit Provider Internal Medicine
DX: Z79.01 Long term (current) use of anticoagulants (principal)

== ENCOUNTER → 2022-10-10 07:59 | Outpatient (BNVA) | payer MEDICARE, SELFPAY | PROVIDERS: PCP Internal Medicine; Visit Provider Internal Medicine | DX: I48.19 Other persistent atrial fibrillation (principal); Z79.01 Long term (current) use of anticoagulants; Z51.81 Encounter for therapeutic drug level monitoring | CPT/HCPCS: 85610; 99211 ==

== ENCOUNTER 2022-11-14 08:01 | Outpatient (AMB) | payer MEDICARE, SELFPAY ==
--- NOTE | 2022-11-14 08:07 | MHC.OFFVISCO ---
Intake Intake Visit Reasons: Anticoagulation Allergies amiodarone Adverse Reaction (Unknown, Verified 11/14/22 08:04) hypothyroidism Medication List - Last Reconciled 11/14/22 by Christina Brown RN atorvastatin 40 mg PO BEDTIME betamethasone dipropionate 0.05% appl topical BID PRN digoxin 125 mcg PO DAILY diltiazem HCl 240 mg PO DAILY furosemide 20 mg PO DAILY [JUXTA LITE Compression As directed] lisinopril 40 mg PO DAILY metoprolol succinate ER 200 mg PO DAILY warfarin 5 mg See Protocol PO DAILY Nursing Note INR: 2.2- in therapeutic range Medications and supplements reviewed- no changes No changes in health, diet, medications, or supplements, Denies any signs and symptoms of bleeding or bruising or clotting. Bleeding, bruising, clotting discussed Nutritional guidance given Dose: 5mg x 5, 2.5mg x 2 F/U INR: 4 weeks Patient verbalizes understanding of instructions given Anti-Coag Initial Assessment Social Hx Patient Tobacco Use Status: Former Tobacco user Tobacco use type: Cigarette alcohol intake: current Alcohol intake frequency: a few times a week Coding Level of Care Code Est Patient Level 1 Diagnoses Current use of anticoagulant therapy Z79.01 Results AMB INR Fingerstick AMB INR Fingerstick 2.2 Last Edit by Christina Brown RN on 11/14/22 08:09 Assessment & Plan Assessment & Plan (1) Current use of anticoagulant therapy: Code(s): 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
[2022-11-14 08:09] LABS: Prothrombin Time Whole Bld POC 26.4 sec (11.1-13.5); ~PT, ~INR - Anti Coag Clinic 2.2 (0.9-1.1)
== END 2022-11-14 08:12 | disposition home or self-care (01) ==
LOC: HO.ACS 08:01
PROVIDERS: PCP Internal Medicine; Visit Provider Internal Medicine
DX: Z79.01 Long term (current) use of anticoagulants (principal)

== ENCOUNTER → 2022-11-14 08:01 | Outpatient (BNVA) | payer MEDICARE, SELFPAY | PROVIDERS: PCP Internal Medicine; Visit Provider Internal Medicine | DX: I48.19 Other persistent atrial fibrillation (principal); Z79.01 Long term (current) use of anticoagulants; Z51.81 Encounter for therapeutic drug level monitoring | CPT/HCPCS: 85610; 99211 ==

== ENCOUNTER 2022-12-12 08:00 | Outpatient (AMB) | payer MEDICARE, SELFPAY ==
--- NOTE | 2022-12-12 08:09 | MHC.OFFVISCO ---
Intake Intake Visit Reasons: Anticoagulation Allergies amiodarone Adverse Reaction (Unknown, Verified 12/12/22 08:05) hypothyroidism Medication List - Last Reconciled 12/12/22 by Christina Brown RN atorvastatin 40 mg PO BEDTIME betamethasone dipropionate 0.05% appl topical BID PRN digoxin 125 mcg PO DAILY diltiazem HCl 240 mg PO DAILY furosemide 20 mg PO DAILY [JUXTA LITE Compression As directed] lisinopril 40 mg PO DAILY metoprolol succinate ER 200 mg PO DAILY warfarin 5 mg See Protocol PO DAILY Nursing Note INR: 2.4- in therapeutic range of 2-3 Medications and supplements reviewed- no changes No changes in health, diet, medications, or supplements, Denies any signs and symptoms of bleeding or bruising or clotting. Bleeding, bruising, clotting discussed Nutritional guidance given Dose: 2.5mg x 2, 5mg x 5 F/U INR: pt req 5 weeks Patient verbalizes understanding of instructions given Anti-Coag Initial Assessment Social Hx Patient Tobacco Use Status: Former Tobacco user Tobacco use type: Cigarette alcohol intake: current Alcohol intake frequency: a few times a week Coding Level of Care Code Est Patient Level 1 Diagnoses Current use of anticoagulant therapy Z79.01 Results AMB INR Fingerstick AMB INR Fingerstick 2.4 Last Edit by Christina Brown RN on 12/12/22 08:10 Assessment & Plan Assessment & Plan (1) Current use of anticoagulant therapy: Code(s): Z79.01 - FDC (current) use of 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
[2022-12-12 08:10] LABS: ~PT, ~INR - Anti Coag Clinic 2.4 (0.9-1.1)
== END 2022-12-12 08:14 | disposition home or self-care (01) ==
LOC: HO.ACS 08:00
PROVIDERS: PCP Internal Medicine; Visit Provider Internal Medicine
DX: Z79.01 Long term (current) use of anticoagulants (principal)

== ENCOUNTER → 2022-12-12 08:00 | Outpatient (BNVA) | payer MEDICARE, SELFPAY | PROVIDERS: PCP Internal Medicine; Visit Provider Internal Medicine | DX: I48.19 Other persistent atrial fibrillation (principal); Z79.01 Long term (current) use of anticoagulants; Z51.81 Encounter for therapeutic drug level monitoring | CPT/HCPCS: 85610; 99211 ==

== ENCOUNTER 2022-12-26 08:18 | Outpatient (AMB) | payer MEDICARE, SELFPAY ==
--- NOTE | 2022-12-26 08:30 | MHC.PC.OV ---
Vital Signs 12/26/22 08:31 Height 6 ft Weight 240 lb BMI 32.5 BP 122/72 Blood Pressure Location Lt brachial Position Sitting Pulse 68 Pulse Source Pulse Oximeter Pulse Oximetry (%) 98 Oxygen Delivery Method Room Air Intake Visit Reasons: A fib Intake Note: Patient is here to follow up on AFIB. Support Merchandiser Required: No Cherry Picker Operator: Not Required per policy Accompanied by: Self / Same As Patient Allergies amiodarone Adverse Reaction (Unknown, Verified 12/26/22 08:31) hypothyroidism Tobacco use date assessed: 12/26/22 Fall risk assessment: No Falls in past year Last assessed Fall Risk: 12/26/22 Dental Screening Dental Screen Date: 12/26/22 Did you have a dental visit in the last 12 months?: No Did you have a dental problem in the last 6 months where you did not have access to dental care?: No Was dental information given to patient?: No HPI A fib HPI Details 77-year-old obese male with hypertension hypercholesterolemia atrial fibrillation impaired glucose tolerance anemia coming in for follow-up. Last seen in August 2022. Patient is up-to-date with colonoscopy April 2022 last blood work. Patient knows that he forgot to do the blood work. Patient will be seeing dairy store manager tomorrow. Otherwise no complaints patient had lives a sedentary life and has been urged to move. Arm states pain on joints discussed about diclofenac gel available [id number] to help with pain. [facility] Medical History Essential hypertension Hypercholesterolemia Impaired glucose tolerance Leg edema Obesity (BMI 30-39.9) Painful arc syndrome Peripheral neuropathy Peripheral vascular disease Persistent atrial fibrillation Thrombocytopenia Surgical History Status post excision of lipoma No pertinent past surgical history Family History Father Lung cancer Mother Lung cancer Brother Lung cancer Social History Housing: House Alcohol intake: current Alcohol intake frequency: a few times a week Patient Tobacco Use Status: Former Tobacco user Tobacco use type: Cigarette Years Smoked: quit smoking in 1969 e-Cigarette/Vaping Use: Never Used Second Hand Smoke Exposure: No service: No Current occupational status: retired Current occupational exposures/hazards: No Cognitive needs: No Hearing needs: No Vision needs: Yes Questionnaire Thrive Questionnaire Date Thrive assessed: 05/17/22 SHABNAM-7 AMB Questionnaire SHABNAM-7 Date SHABNAM - 7 assessed: 05/17/22 Source: Developed by Drs. Bryant Mullins, Betzaida Bell, Manuel Hernandez and colleagues, with an educational brandi from [employer]. Physical exam (Primary Care) Vital Signs: Last Vital Signs Pulse 68 12/26/22 08:31 BP 122/72 12/26/22 08:31 Pulse Ox 98 12/26/22 08:31 Oxygen Delivery Method Room Air 12/26/22 08:31 BMI result Body Mass Index 32.5 Tobacco/Smoking Status: Tobacco use Status Tobacco use date assessed 12/26/22 12/26/22 08:35 Patient Tobacco Use Status Former Tobacco user 12/26/22 08:35 Tobacco use type Cigarette 12/26/22 08:35 e-Cigarette/Vaping Use Never Used 12/26/22 08:35 Thrive Assessment: Date of Thrive Assessment Date Thrive assessed 05/17/22 12/26/22 08:35 Const General: alert; No acute distress Eyes Conjunctivae: conjunctivae normal Resp Auscultation: clear to auscultation bilaterally Cardio Rate: regular rate Rhythm: regular rhythm GI Inspection: Yes normal to inspection Extrem General: Yes normal to inspection and No edema Office Procedures Flu Questionnaire Does the patient have a severe egg allergy?: No Does the patient have severe life threatening allergies?: No Does the patient have a fever or illness today?: No Has the patient ever had Guillain-Vinita Syndrome?: No Has the patient ever had any past reaction to a flu shot?: No Immunizations flu vacc [id number] 6mos up(PF) 60 mcg(15 mcgx4)/0.5 mL IM syringe Performing Provider: Carter Garg MD Performing Location[facility] Administered by: Mily Lozano CMA on 12/26/22 08:38 Dose Route Admin Location Dispensed Lot Number Expiration Date NDC [employer] 0.5 mL IM Left Deltoid 0.5 mL [id number] 08/18/23 96081-605-70 [employer] VIS Given Date VIS Provided VIS Publication Date 12/26/22 Single Vaccine 20 Eligibility Eligibility Date Funding Source Not [facility] Eligible 12/26/22 Private Assessment and Plan Assessment & Plan (1) Essential hypertension: Code(s): I10 - Essential (primary) hypertension Plan: Continue with blood pressure medication. Decrease salt intake and exercise patient takes metoprolol to 100 mg once a day diltiazem 240 mg once a day and lisinopril 40 mg once a day (2) Hypercholesterolemia: Code(s): E78.00 - Pure hypercholesterolemia, unspecified Plan: Avoid fried foods, chicken skin, eggs, butter margarine, pastries and meat. Be it pork or beef they have a lot of cholesterol LDL goal of less than 130 and triglyceride of less than 150 patient is on atorvastatin 40 mg once a day (3) Impaired glucose tolerance: Code(s): R73.02 - Impaired glucose tolerance (oral) Plan: Decrease the amount of carbohydrate intake, pasta, bread, rice and potatoes are all sugar and that is aside from all the sweet stuff, remember that fruits are good but they are Sweet also. (4) Obesity (BMI 30-39.9): Code(s): E66.9 - Obesity, unspecified Plan: Diet and exercise (5) Persistent atrial fibrillation: Code(s): I48.19 - Other persistent atrial fibrillation Plan: Continue with anticoagulation, digoxin. Patient on diuretics. (6) Anemia: Comment: With thrombocytopenia Code(s): D64.9 - Anemia, unspecified Qualifiers: Anemia type: unspecified type Qualified Code(s): D64.9 - Anemia, unspecified Orders: Orders Influenza [id number] Immunization Today Z23 - Encounter for immunization Coding Level of Care Code Est Pt Level 4 (38613) Diagnoses Essential hypertension I10 Hypercholesterolemia E78.00 Impaired glucose tolerance R73.02 Obesity (BMI 30-39.9) E66.9 Persistent atrial fibrillation I48.19 Anemia, unspecified type D64.9 Anemia type: unspecified type
[2022-12-26 08:31] VITALS: BP 122/72; PULSE 68; O2SAT 98; BMI 32.5
== END 2022-12-26 08:59 | disposition home or self-care (01) ==
PROVIDERS: PCP Internal Medicine; Visit Provider Internal Medicine
DX: I10 Essential (primary) hypertension (principal); I48.19 Other persistent atrial fibrillation; E66.9 Obesity, unspecified; Z68.32 Body mass index [BMI] 32.0-32.9, adult; Z23 Encounter for immunization; E78.00 Pure hypercholesterolemia, unspecified; R73.02 Impaired glucose tolerance (oral); D64.9 Anemia, unspecified
CPT/HCPCS: 90471; 90686; 99214

== ENCOUNTER 2022-12-27 08:10 | Outpatient (AMB) | payer MEDICARE, SELFPAY ==
--- NOTE | 2022-12-27 08:21 | A.OFFVIS_ITS ---
Intake Vital Signs 12/27/22 08:22 Height 6 ft Weight 240 lb 4.862 oz BMI 32.6 BP 118/62 Blood Pressure Location Lt brachial Position Sitting Pulse 75 Intake Visit Reasons: 1 yr f/up Intake Note: 1 year follow up w/ EKG Medical Data Entry Clerk Required: No Accompanied by: Self / Same As Patient Allergies amiodarone Adverse Reaction (Unknown, Verified 12/27/22 08:25) hypothyroidism Medication List - Last Reconciled 12/27/22 by Carroll Wells MD atorvastatin 40 mg PO BEDTIME betamethasone dipropionate 0.05% appl topical BID PRN digoxin 125 mcg PO DAILY diltiazem HCl 240 mg PO DAILY furosemide 20 mg PO DAILY [JUXTA LITE Compression As directed] lisinopril 40 mg PO DAILY metoprolol succinate ER 200 mg PO DAILY warfarin 5 mg See Protocol PO DAILY HPI HPI Comments History of Present Illness Details Chele returns for follow-up regarding atrial fibrillation. ?He has had atrial fibrillation for more than 15 years or so.? Underwent cardioversion many years ago which was unsuccessful.? Essentially, he has remained in atrial fibrillation throughout. ? He also has chronic leg swelling, probably multifactorial. Other comorbidities but nothing major. Overall, he states he is doing fine. No major issues. No anginal-type symptoms or shortness of breath or in fact anything cardiac related. Leg swelling is about the same. He states that his life is fine and seems satisfied. Cheerful. [facility] Medical History Essential hypertension Hypercholesterolemia Impaired glucose tolerance Leg edema Obesity (BMI 30-39.9) Painful arc syndrome Peripheral neuropathy Peripheral vascular disease Persistent atrial fibrillation Thrombocytopenia Surgical History Status post excision of lipoma No pertinent past surgical history Family History Father Lung cancer Mother Lung cancer Brother Lung cancer Social History Housing: House Alcohol intake: current Alcohol intake frequency: a few times a week Patient Tobacco Use Status: Former Tobacco user Tobacco use type: Cigarette Years Smoked: quit smoking in 1969 e-Cigarette/Vaping Use: Never Used Second Hand Smoke Exposure: No service: No Current occupational status: retired Current occupational exposures/hazards: No Cognitive needs: No Hearing needs: No Vision needs: Yes Review of Systems Const Denies weakness ENT Denies dizziness Card Denies chest pain, Denies chest pain with activity, Denies syncope, Denies rapid heart rate, Denies pedal edema, Denies edema, Denies leg edema, Denies lightheadedness, Denies palpitations, Denies dyspnea, Denies dyspnea on exertion and Denies orthopnea Resp Denies cough, Denies dyspnea and Denies dyspnea on exertion GI Denies hematochezia and Denies change in stool character Musc Denies abnormal gait, Denies muscle cramps, Denies muscle weakness, Denies numbness, Denies radiating pain into limb and Denies tingling Neuro Denies abnormal gait, Denies dizziness, Denies syncope, Denies numbness, Denies tingling and Denies weakness Endo Denies palpitations Physical Exam Vital Signs: Last Vital Signs Pulse 75 12/27/22 08:22 BP 118/62 12/27/22 08:22 BMI result Body Mass Index 32.6 Const General: comfortable and no acute distress Orientation/consciousness: patient oriented x3 HEENT Other: Unremarkable Head: Yes normal to inspection Neck Neck: Yes normal visual inspection Chest Chest palpation & inspection: normal inspection of the chest Resp Auscultation: clear to auscultation bilaterally Cardio Palpation: normal PMI Heart sounds: S1 normal heart sound present, S2 normal heart sound present, no gallops, no murmurs and no rubs GI Palpation (GI): Soft to palpation Back/Spine/Pelvis Other: unremarkable Skin General skin exam: no rashes or lesions noted Neuro General: patient oriented x3 Extrem Other: 1-2+ edema, but has stockings on. Some hardening of skin. Chronic changes. General: Yes normal to inspection Psych Mental Status: mental status grossly normal Office Procedures EKG Details: EKG with atrial fibrillation at a rate of 75/Min. [id number], Complete Assessment & Plan Assessment & Plan (1) Persistent atrial fibrillation: Code(s): I48.19 - Other persistent atrial fibrillation Plan: Continue diltiazem and digoxin. Continue warfarin. Last kidney function as well as digoxin are acceptable. Advised recheck and there is already an order for that. He will go today or tomorrow. By EKG, well controlled. Holter shows underlying atrial fibrillation with an average rate of 77/Min. Echocardiogram with LVEF 60-65%; mild mitral and calcification and mild pulmonary hypertension. Myocardial perfusion imaging study shows normal perfusion. (2) Essential hypertension: Code(s): I10 - Essential (primary) hypertension Plan: On lisinopril. Blood pressure seems stable. (3) Other and unspecified hyperlipidemia: Code(s): E78.5 - Hyperlipidemia, unspecified Plan: Continue statins. Last LDL 93mg/dl. (4) Leg edema: Code(s): R60.0 - Localized edema Plan: Mostly suspect venous insufficiency but can be multifactorial. He is on a small dose of Lasix. Also check sleep study to look for any occult sleep apnea. He is agreeable. Orders: Orders RT home sleep study Today G47.33 - Obstructive sleep apnea (adult) (pediatric) Digoxin Today I48.19 - Other persistent atrial fibrillation CA echo transthoracic complete 51 Weeks I48.19 - Other persistent atrial fibrillation Coding Level of Care Code Est Pt Level 4 (49400) Diagnoses Persistent atrial fibrillation I48.19 Essential hypertension I10 Other and unspecified hyperlipidemia E78.5 Leg edema R60.0 CPT Codes EKG - CPT: [id number], Complete ([id number])
[2022-12-27 08:22] VITALS: BP 118/62; PULSE 75; BMI 32.6
== END 2022-12-27 08:44 | disposition home or self-care (01) ==
PROVIDERS: Visit Provider Internal Medicine
DX: I48.19 Other persistent atrial fibrillation (principal); I10 Essential (primary) hypertension; E78.5 Hyperlipidemia, unspecified; R60.0 Localized edema
CPT/HCPCS: 93010; 99214

== ENCOUNTER → 2022-12-27 08:10 | Outpatient (BNVA) | payer MEDICARE, SELFPAY | PROVIDERS: Visit Provider Internal Medicine | DX: I48.19 Other persistent atrial fibrillation (principal); Z79.01 Long term (current) use of anticoagulants; I10 Essential (primary) hypertension; R60.0 Localized edema; E78.5 Hyperlipidemia, unspecified | CPT/HCPCS: 93005; 99212 ==

== ENCOUNTER 2022-12-28 09:22 | Outpatient (REF) | payer MEDICARE, SELFPAY ==
[2022-12-28 09:55] LABS: MANUAL DIFF FLAG NO
[2022-12-28 11:05] LABS: Basophils Absolute Auto 0.1 X10*3/uL (0.0-0.2); Basophils Percent Auto 0.7 % (0-2); Eosinophils Absolute Auto 0.2 X10*3/uL (0.0-0.4); Eosinophils Percent Auto 2.7 % (0-4); Hematocrit 41.2 % (42.0-52.0); Hemoglobin 13.6 g/dl (14.0-18.0); Imm Gran Abs Auto 0.04 X10*3/uL (0.00-0.03); Imm Gran Pct Auto 0.5 % (0.0-0.4); Immature Retic Fraction 13.7 % (2.3-13.4); Lymphocytes Absolute Auto 2.5 X10*3/uL (1.2-4.9); Lymphocytes Percent Auto 27.9 % (20-40); Mean Corpuscular Hemoglobin 30.7 pg (27.0-33.0); Mean Platelet Volume 11.1 fL (9.4-12.4); Monocytes Absolute Auto 0.8 X10*3/uL (0.1-1.2); Monocytes Percent Auto 9.4 % (2-11); Neutrophils Absolute Auto 5.2 x10*3/uL (2.0-8.3); Neutrophils Percent Auto 58.8 % (45-73); Platelet Count 145 X10*3/uL (160-400); Red Blood Count 4.43 X10*6/uL (4.60-5.80); Red Cell Distribution Width 13.5 % (11.0-16.0); Retic HGB Equivalent 35.4 pg (30.0-35.0); Reticulocyte Percent 1.7 % (0.5-1.8); Reticulocytes Absolute 0.074 X10*6/uL (0.026-0.095); White Blood Count 8.9 X10*3/uL (4.8-10.8)
[2022-12-28 11:16] LABS: Estimated Average Glucose 111 mg/dL; Hemoglobin A1c % 5.5 % (<6.0)
[2022-12-28 11:32] LABS: B Type Natriuretic Peptide 147 pg/mL (<100)
[2022-12-28 11:38] LABS: Alanine Aminotransferase 15 U/L (0-40); Albumin Level 4.1 g/dL (3.5-5.0); Alkaline Phosphatase 100 U/L (39-117); Anion Gap 10 (12-20); Aspartate Amino Transferase 19 U/L (5-37); Bilirubin Total 0.6 mg/dL (0.0-1.0); Blood Urea Nitrogen 13 mg/dL (9-16); Calcium 8.8 mg/dL (8.4-10.2); Carbon Dioxide 29 mmol/L (22-29); Chloride 104 mmol/L (96-108); Cholesterol 160 mg/dL (<200); Estimated Glomerular Filt Rate > 60; Glucose Random 131 mg/dL (60-115); HDL Cholesterol 46 mg/dL (>40); Iron 110 mcg/dL (45-160); LDL Cholesterol Calculated 99 mg/dL (<100); Percent Iron Saturation 37 % (15-50); Potassium 4.2 mmol/L (3.3-5.1); Sodium 139 mmol/L (135-145); Total Iron Binding Capacity 297 mcg/dL (228-428); Triglycerides 75 mg/dL (<150); Unsaturated Iron Binding 187 ug/dL
[2022-12-28 12:00] LABS: Folate 15.4 ng/mL (> or = 4.0); Vitamin B12 516 pg/mL (200-900)
[2022-12-28 12:15] LABS: Ferritin 165 ng/mL (20-250); Free T4 (Free Thyroxine) 0.85 ng/dL (0.71-1.85); Thyroid Stimulating Hormone 2.06 uIU/mL (0.32-4.0)
== END 2022-12-28 09:23 | disposition home or self-care (01) ==
LOC: HO.LAB 09:22
PROVIDERS: Visit Provider Internal Medicine
DX: I48.19 Other persistent atrial fibrillation (principal); R73.02 Impaired glucose tolerance (oral); E78.00 Pure hypercholesterolemia, unspecified
CPT/HCPCS: 36415; 80053; 80061; 82607; 82728; 82746; 83036; 83540; 83880; 84439; 84443; 85025; 85045

== ENCOUNTER 2023-01-16 07:59 | Outpatient (AMB) | payer MEDICARE, SELFPAY ==
[2023-01-16 08:06] LABS: Prothrombin Time Whole Bld POC 32.3 sec (11.1-13.5); ~PT, ~INR - Anti Coag Clinic 2.7 (0.9-1.1)
--- NOTE | 2023-01-16 08:09 | MHC.OFFVISCO ---
Intake Intake Visit Reasons: Anticoagulation Allergies amiodarone Adverse Reaction (Unknown, Verified 01/16/23 08:01) hypothyroidism Medication List - Last Reconciled 01/16/23 by Karen Park RN atorvastatin 40 mg PO BEDTIME betamethasone dipropionate 0.05% appl topical BID PRN digoxin 125 mcg PO DAILY diltiazem HCl 240 mg PO DAILY furosemide 20 mg PO DAILY [JUXTA LITE Compression As directed] lisinopril 40 mg PO DAILY metoprolol succinate ER 200 mg PO DAILY warfarin 5 mg See Protocol PO DAILY Nursing Note INR: 2.7 in therapeutic range Medications and supplements reviewed No changes in health, diet, medications, or supplements, Denies any signs and symptoms of bleeding or bruising or clotting. Bleeding, bruising, clotting discussed Nutritional guidance given EAT A MIX OF FRUITS AND VEGETABLES Dose:SAME2.5MG X 2DAYS/ 5MG X 5 DAYS F/U INR: 4 WEEKS Patient verbalizes understanding of instructions given Anti-Coag Initial Assessment Social Hx Patient Tobacco Use Status: Former Tobacco user Tobacco use type: Cigarette alcohol intake: current Alcohol intake frequency: a few times a week Coding Level of Care Code Est Patient Level 1
== END 2023-01-16 08:11 | disposition home or self-care (01) ==
LOC: HO.ACS 07:59
PROVIDERS: PCP Internal Medicine; Visit Provider Internal Medicine
DX: Z79.01 Long term (current) use of anticoagulants (principal)

== ENCOUNTER → 2023-01-16 07:59 | Outpatient (BNVA) | payer MEDICARE, SELFPAY | PROVIDERS: PCP Internal Medicine; Visit Provider Internal Medicine | DX: I48.19 Other persistent atrial fibrillation (principal); Z79.01 Long term (current) use of anticoagulants; Z51.81 Encounter for therapeutic drug level monitoring | CPT/HCPCS: 85610; 99211 ==

== ENCOUNTER → 2023-01-24 07:57 | Outpatient (REF) | payer MEDICARE, SELFPAY | LOC: HO.SL 07:57 | PROVIDERS: PCP Internal Medicine; Visit Provider Internal Medicine | DX: G47.33 Obstructive sleep apnea (adult) (pediatric) (principal) | CPT/HCPCS: 95806 ==

== ENCOUNTER → 2023-01-24 08:13 | Outpatient (BNV) | payer MEDICARE, SELFPAY | PROVIDERS: PCP Internal Medicine; Visit Provider Internal Medicine | DX: G47.33 Obstructive sleep apnea (adult) (pediatric) (principal) | CPT/HCPCS: 95806 ==

== ENCOUNTER 2023-02-14 08:02 | Outpatient (AMB) | payer MEDICARE, SELFPAY ==
[2023-02-14 08:16] LABS: Prothrombin Time Whole Bld POC 38.6 sec (11.1-13.5); ~PT, ~INR - Anti Coag Clinic 3.2 (0.9-1.1)
--- NOTE | 2023-02-14 08:16 | MHC.OFFVISCO ---
Intake Intake Visit Reasons: Anticoagulation Allergies amiodarone Adverse Reaction (Unknown, Verified 02/14/23 08:10) hypothyroidism Medication List - Last Reconciled 02/14/23 by Christina Brown RN atorvastatin 40 mg PO BEDTIME betamethasone dipropionate 0.05% appl topical BID PRN digoxin 125 mcg PO DAILY diltiazem HCl 240 mg PO DAILY furosemide 20 mg PO DAILY [JUXTA LITE Compression As directed] lisinopril 40 mg PO DAILY metoprolol succinate ER 200 mg PO DAILY warfarin 5 mg See Protocol PO DAILY Nursing Note INR 3.2-?? out of therapeutic range Medications and supplements reviewed Patient status: no c.o Medications or supplements: no changes Diet: same, had greens yesterday Denies any signs and symptoms of bleeding or clotting or unusual bruising Bleeding, bruising, clotting discussed - pt states bloody nose this am Nutritional guidance given: eat greens for 2 days, no reds for 2 days Dose: already took warfarin today, reduce tomm to 2.5mg due to bloody nose today then cont reg 2.5mg x 2, 5mg x 5 F/U INR Date : 2 weeks? Patient verbalizing understanding of instructions given. Anti-Coag Initial Assessment Social Hx Patient Tobacco Use Status: Former Tobacco user Tobacco use type: Cigarette alcohol intake: current Alcohol intake frequency: a few times a week Coding Level of Care Code Est Patient Level 1 Diagnoses Current use of anticoagulant therapy Z79.01 Assessment & Plan Assessment & Plan (1) Current use of anticoagulant therapy: Code(s): Z79.01 - prison (current) use of 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
== END 2023-02-14 08:23 | disposition home or self-care (01) ==
LOC: HO.ACS 08:02
PROVIDERS: PCP Internal Medicine; Visit Provider Internal Medicine
DX: Z79.01 Long term (current) use of anticoagulants (principal)

== ENCOUNTER → 2023-02-14 08:02 | Outpatient (BNVA) | payer MEDICARE, SELFPAY | PROVIDERS: PCP Internal Medicine; Visit Provider Internal Medicine | DX: I48.19 Other persistent atrial fibrillation (principal); Z79.01 Long term (current) use of anticoagulants; Z51.81 Encounter for therapeutic drug level monitoring | CPT/HCPCS: 85610; 99211 ==

== ENCOUNTER 2023-03-01 08:02 | Outpatient (AMB) | payer MEDICARE, SELFPAY ==
--- NOTE | 2023-03-01 08:23 | MHC.OFFVISCO ---
Intake Intake Visit Reasons: Anticoagulation Allergies amiodarone Adverse Reaction (Unknown, Verified 03/01/23 08:14) hypothyroidism Medication List - Last Reconciled 03/01/23 by Precious Muniz RN atorvastatin 40 mg PO BEDTIME betamethasone dipropionate 0.05% appl topical BID PRN digoxin 125 mcg PO DAILY diltiazem HCl 240 mg PO DAILY furosemide 20 mg PO DAILY [JUXTA LITE Compression As directed] lisinopril 40 mg PO DAILY metoprolol succinate ER 200 mg PO DAILY warfarin 5 mg See Protocol PO DAILY Nursing Note Amb to ACS feeling well Medications and supplements reviewed No changes in health, diet, medications, or supplements Denies any unusual signs and symptoms of bruising, bleeding, sts no further nose bleeds Denies any new Chest pain, SOB, or clotting INR: 2.3 in therapeutic range Nutritional guidance given: balance greens and reds in diet, be consistent Dose: continue usual dosing;2.5mg x 2 days and 5mg x 5 days F/U INR: 4 weeks Patient verbalizes understanding of instructions given with accurate read back/ teach back of dosing Anti-Coag Initial Assessment Social Hx Patient Tobacco Use Status: Former Tobacco user Tobacco use type: Cigarette alcohol intake: current Alcohol intake frequency: a few times a week Questionnaires HAS-BLED Does the patient had uncontrolled Hypertension?: No Does the patient have renal disease?: No Does the patient have liver disease?: No Does the patient have a history of stroke?: No Has the patient had major bleeding or predisposition to bleeding?: No Does the patient have labile INRs?: No Is the patient over 65 years of age?: Yes Is the patient on medications that gives them a predisposition to bleeding?: Yes Does the patient use alcohol?: Yes HAS-BLED Score: 3 CHADSVASC Age: 75 or over Gender: Male Does the patient have a history of CHF?: No Does the patient have a history of Hypertension?: Yes Does the patient have a history of Stroke/TIA/Thromboembolism?: No Does the patient have a history of Vascular Disease (prior WI, PAD or aortic plaque)?: No Does the patient have a history of Diabetes?: No CHADS VACS Score: 3 Pinky Prediction Score Rsk VTE Active Cancer: No Previous VTE, excluding superficial vein thrombosis: No Reduced mobility: No Already known Thrombophilic Condition: Yes With-in last month Trauma and/or Surgery: No Elderly 70 year or older: Yes Heart and/or Respiratory Failure: No Acute Myocardial infarction and/or Ischemic Stroke: No Acute Infection and/or Rheumatologic Disorder: No Obesity (BMI 30 or greater): No Ongoing Hormonal Treatment: No Score: 4 Pinky Score less than 4; Low Risk of VTE Pinky Score 4 or greater; High Risk of VTE Coding Level of Care Code Est Patient Level 1 Diagnoses Current use of anticoagulant therapy Z79.01 Time Spent (min) 15 Results AMB INR Fingerstick AMB INR Fingerstick 2.3 Last Edit by Precious Muniz RN on 03/01/23 08:21 INTERFACE FAILURE Assessment & Plan Assessment & Plan (1) Current use of anticoagulant therapy: Code(s): 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
[2023-03-01 08:27] LABS: Prothrombin Time Whole Bld POC 27.9 sec (11.1-13.5); ~PT, ~INR - Anti Coag Clinic 2.3 (0.9-1.1)
== END 2023-03-01 13:09 | disposition home or self-care (01) ==
LOC: HO.ACS 08:02
PROVIDERS: PCP Internal Medicine; Visit Provider Internal Medicine
DX: Z79.01 Long term (current) use of anticoagulants (principal)

== ENCOUNTER → 2023-03-01 08:02 | Outpatient (BNVA) | payer MEDICARE, SELFPAY | PROVIDERS: PCP Internal Medicine; Visit Provider Internal Medicine | DX: I48.19 Other persistent atrial fibrillation (principal); Z79.01 Long term (current) use of anticoagulants; Z51.81 Encounter for therapeutic drug level monitoring | CPT/HCPCS: 85610; 99211 ==

== ENCOUNTER 2023-03-22 09:23 | Outpatient (AMB) | payer MEDICARE, SELFPAY ==
[2023-03-22 09:31] VITALS: BP 102/52; PULSE 68; O2SAT 98; BMI 33.0
--- NOTE | 2023-03-22 09:31 | A.OFFVIS_ITS ---
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 Patient is interested in trying CPAP therapy. [facility] Medical History Essential hypertension Hypercholesterolemia Impaired glucose tolerance Leg edema Obesity (BMI 30-39.9) Painful arc syndrome Peripheral neuropathy Peripheral vascular disease Persistent atrial fibrillation Thrombocytopenia Surgical History Status post excision of lipoma No pertinent past surgical history Family History Father Lung cancer Mother Lung cancer Brother Lung cancer Social History Housing: House Alcohol intake: current Alcohol intake frequency: a few times a week Patient Tobacco Use Status: Former Tobacco user Tobacco use type: Cigarette Years Smoked: quit smoking in 1969 e-Cigarette/Vaping Use: Never Used Second Hand Smoke Exposure: No service: No Current occupational status: retired Current occupational exposures/hazards: No Cognitive needs: No Hearing needs: No Vision needs: Yes Review of Systems Const Reports daytime sleepiness, Denies excessive sweating, Reports fatigue, Denies fever(s), Denies lethargy, Denies malaise, Denies night sweats, Reports snoring and Denies weight loss Eyes Denies blurry vision and Denies itchy eyes ENT Denies nasal congestion, Denies post nasal drip, Denies sinus pain, Denies sinus pressure and Denies other ( Thrush) Card Denies chest pain, Reports pedal edema, Denies dyspnea, Denies orthopnea and Denies paroxysmal nocturnal dyspnea Resp Denies cough, Denies hemoptysis, Denies excessive phlegm production, Denies dyspnea, Reports snoring and Denies wheezing GI Denies abdominal pain and Denies heartburn Musc Denies myalgias, Denies arthralgias and Denies joint swelling Skin/Breast Denies rash Neuro Denies memory loss and Denies seizure-like activity Psych Denies abnormal sleep pattern, Denies anxiety and Denies memory loss Endo Denies excessive sweating, Reports fatigue and Denies heat intolerance Isaiah/Lymph Denies easy bruising Aller/Immun Denies itchy eyes, Denies seasonal rhinorrhea and Denies wheezing Physical Exam Vital Signs: Last Vital Signs Pulse 68 03/22/23 09:31 BP 102/52 L 03/22/23 09:31 Pulse Ox 98 03/22/23 09:31 Oxygen Delivery Method Room Air 03/22/23 09:31 BMI result Body Mass Index 33.0 Const General: no acute distress and alert Nutritional Appearance: not obese Orientation/consciousness: Other orientation findings ( oriented) HEENT Head: Yes atraumatic Eyes General: appearance normal, both eyes and all related structures Sclerae: sclerae normal EOM: EOMs intact bilaterally Neck Neck: Yes supple Lymphatic: no lymphadenopathy noted Resp Effort & Inspection: normal respiratory effort and no use of accessory muscles Auscultation: clear to auscultation bilaterally Cardio Rate: regular rate Rhythm: regular rhythm Heart sounds: no gallops, no murmurs and no rubs Skin General skin exam: other ( warm) Extrem General: No clubbing, No cyanosis and Yes edema (2+ bilateral) Assessment & Plan Assessment & Plan (1) Obstructive sleep apnea: Code(s): G47.33 - Obstructive sleep apnea (adult) (pediatric) Plan: Moderate obstructive sleep apnea with RDI of 24. Will start on APAP of 6-16 cm of water. Coding Level of Care Code New Pt Level 3 (90221) Diagnoses Obstructive sleep apnea G47.33
== END 2023-03-22 09:51 | disposition home or self-care (01) ==
PROVIDERS: PCP Internal Medicine; Visit Provider Internal Medicine Pulmonary Disease
DX: G47.33 Obstructive sleep apnea (adult) (pediatric) (principal)
CPT/HCPCS: 99203

== ENCOUNTER → 2023-03-22 09:23 | Outpatient (BNVA) | payer MEDICARE, SELFPAY | PROVIDERS: PCP Internal Medicine; Visit Provider Internal Medicine Pulmonary Disease | DX: G47.33 Obstructive sleep apnea (adult) (pediatric) (principal) | CPT/HCPCS: 99202 ==

== ENCOUNTER → 2023-03-28 08:01 | Outpatient (BNVA) | payer MEDICARE, SELFPAY | PROVIDERS: PCP Internal Medicine; Visit Provider Internal Medicine ==

== ENCOUNTER 2023-04-01 08:06 | Outpatient (AMB) | payer MEDICARE, SELFPAY ==
--- NOTE | 2023-04-01 08:26 | MHC.OFFVISCO ---
Intake Intake Visit Reasons: Anticoagulation Allergies amiodarone Adverse Reaction (Unknown, Verified 04/01/23 08:12) hypothyroidism Medication List - Last Reconciled 04/01/23 by Karen Park RN atorvastatin 40 mg PO BEDTIME betamethasone dipropionate 0.05% appl topical BID PRN digoxin 125 mcg PO DAILY diltiazem HCl 240 mg PO DAILY furosemide 20 mg PO DAILY [JUXTA LITE Compression As directed] lisinopril 40 mg PO DAILY metoprolol succinate ER 200 mg PO DAILY warfarin 5 mg See Protocol PO DAILY Nursing Note INR: 3.5 OUT OF therapeutic range Medications and supplements reviewed No changes in health, medications, or supplements, HAD A FEW BEERS WATCHING THE Balanced BOWL AND HAD LESS GREENS Denies any signs and symptoms of bleeding or bruising or clotting. 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 Dose: KEEP SAME 2.5MG X 2 DAYS/ 5MG X 5 DAYS F/U INR: 1 MONTH Patient verbalizes understanding of instructions given Anti-Coag Initial Assessment Social Hx Patient Tobacco Use Status: Former Tobacco user Tobacco use type: Cigarette alcohol intake: current Alcohol intake frequency: a few times a week Coding Level of Care Code Est Patient Level 1 Diagnoses Current use of anticoagulant therapy Z79.01 Results AMB INR Fingerstick AMB INR Fingerstick 3.5 Last Edit by Karen Park RN on 04/01/23 08:22 MANUAL ENTRY Assessment & Plan Assessment & Plan (1) Current use of anticoagulant therapy: Code(s): 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
[2023-04-01 09:38] LABS: Prothrombin Time Whole Bld POC 41.8 sec (11.1-13.5); ~PT, ~INR - Anti Coag Clinic 3.5 (0.9-1.1)
== END 2023-04-01 08:29 | disposition home or self-care (01) ==
PROVIDERS: PCP Internal Medicine; Visit Provider Internal Medicine
DX: Z79.01 Long term (current) use of anticoagulants (principal)

== ENCOUNTER → 2023-04-01 08:06 | Outpatient (BNVA) | payer MEDICARE, SELFPAY | PROVIDERS: PCP Internal Medicine; Visit Provider Internal Medicine | DX: I48.19 Other persistent atrial fibrillation (principal); Z79.01 Long term (current) use of anticoagulants; Z51.81 Encounter for therapeutic drug level monitoring | CPT/HCPCS: 85610; 99211 ==

== ENCOUNTER 2023-04-29 08:05 | Outpatient (AMB) | payer MEDICARE, SELFPAY ==
--- NOTE | 2023-04-29 08:12 | MHC.OFFVISCO ---
Intake Intake Visit Reasons: Anticoagulation Allergies amiodarone Adverse Reaction (Unknown, Verified 04/29/23 08:08) hypothyroidism Medication List - Last Reconciled 04/29/23 by Karen Park RN atorvastatin 40 mg PO BEDTIME betamethasone dipropionate 0.05% appl topical BID PRN digoxin 125 mcg PO DAILY diltiazem HCl 240 mg PO DAILY furosemide 20 mg PO DAILY [JUXTA LITE Compression As directed] lisinopril 40 mg PO DAILY metoprolol succinate ER 200 mg PO DAILY warfarin 5 mg See Protocol PO DAILY Nursing Note INR: 2.9 in therapeutic range Medications and supplements reviewed No changes in health, diet, medications, or supplements, Denies any signs and symptoms of bleeding or bruising or clotting. Bleeding, bruising, clotting discussed Nutritional guidance given REVIEW FOOD LIST WEEKLY Dose: KEEP SAME2.5MG X 2 DAYS/5MG X 5 DAYS F/U INR: 4 WEEKS Patient verbalizes understanding of instructions given Anti-Coag Initial Assessment Social Hx Patient Tobacco Use Status: Former Tobacco user Tobacco use type: Cigarette alcohol intake: current Alcohol intake frequency: a few times a week Coding Level of Care Code Est Patient Level 1 Diagnoses Current use of anticoagulant therapy Z79.01 Assessment & Plan Assessment & Plan (1) Current use of anticoagulant therapy: Code(s): Z79.01 - intermediate (current) use of 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
[2023-04-29 08:13] LABS: Prothrombin Time Whole Bld POC 34.7 sec (11.1-13.5); ~PT, ~INR - Anti Coag Clinic 2.9 (0.9-1.1)
== END 2023-04-29 08:20 | disposition home or self-care (01) ==
LOC: HO.ACS 08:05
PROVIDERS: PCP Internal Medicine; Visit Provider Internal Medicine
DX: Z79.01 Long term (current) use of anticoagulants (principal)

== ENCOUNTER → 2023-04-29 08:05 | Outpatient (BNVA) | payer MEDICARE, SELFPAY | PROVIDERS: PCP Internal Medicine; Visit Provider Internal Medicine | DX: I48.19 Other persistent atrial fibrillation (principal); Z79.01 Long term (current) use of anticoagulants; Z51.81 Encounter for therapeutic drug level monitoring | CPT/HCPCS: 85610; 99211 ==

== ENCOUNTER 2023-05-27 08:03 | Outpatient (AMB) | payer MEDICARE, SELFPAY ==
[2023-05-27 08:10] LABS: Prothrombin Time Whole Bld POC 37.2 sec (11.1-13.5); ~PT, ~INR - Anti Coag Clinic 3.1 (0.9-1.1)
--- NOTE | 2023-05-27 08:13 | MHC.OFFVISCO ---
Intake Intake Visit Reasons: Anticoagulation Allergies amiodarone Adverse Reaction (Unknown, Verified 05/27/23 08:05) hypothyroidism Medication List - Last Reconciled 05/27/23 by Precious Muniz RN atorvastatin 40 mg PO BEDTIME betamethasone dipropionate 0.05% appl topical BID PRN digoxin 125 mcg PO DAILY diltiazem HCl CD 240 mg PO DAILY furosemide 20 mg PO DAILY [JUXTA LITE Compression As directed] lisinopril 40 mg PO DAILY metoprolol succinate ER 200 mg PO DAILY warfarin 5 mg See Protocol PO DAILY Nursing Note Amb to ACS feeling well Medications and supplements reviewed No changes in health, diet, medications, or supplements Denies any unusual signs and symptoms of bruising, bleeding Denies any new Chest pain, SOB, or clotting INR: 3.1 just above therapeutic range Nutritional guidance given:greens today then balance greens and reds in diet, increase weekly greens as trending up Dose: continue usual dosing;2.5mg x 2 days and 5mg x 5 days F/U INR:4 weeks Patient verbalizes understanding of instructions given with accurate read back/ teach back of dosing Anti-Coag Initial Assessment Social Hx Patient Tobacco Use Status: Former Tobacco user Tobacco use type: Cigarette alcohol intake: current Alcohol intake frequency: a few times a week Coding Level of Care Code Est Patient Level 1 Diagnoses Current use of anticoagulant therapy Z79.01 Time Spent (min) 15 Assessment & Plan Assessment & Plan (1) Current use of anticoagulant therapy: Code(s): 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
== END 2023-05-27 08:18 | disposition home or self-care (01) ==
LOC: HO.ACS 08:03
PROVIDERS: PCP Internal Medicine; Visit Provider Internal Medicine
DX: Z79.01 Long term (current) use of anticoagulants (principal)

== ENCOUNTER → 2023-05-27 08:03 | Outpatient (BNVA) | payer MEDICARE, SELFPAY | PROVIDERS: PCP Internal Medicine; Visit Provider Internal Medicine | DX: I48.19 Other persistent atrial fibrillation (principal); Z79.01 Long term (current) use of anticoagulants; Z51.81 Encounter for therapeutic drug level monitoring | CPT/HCPCS: 85610; 99211 ==

== ENCOUNTER 2023-06-19 08:39 | Outpatient (REF) | payer MEDICARE, SELFPAY ==
[2023-06-19 09:01] LABS: MANUAL DIFF FLAG NO
[2023-06-19 09:13] LABS: Basophils Absolute Auto 0.1 X10*3/uL (0.0-0.2); Basophils Percent Auto 0.6 % (0-2); Eosinophils Absolute Auto 0.2 X10*3/uL (0.0-0.4); Eosinophils Percent Auto 2.3 % (0-4); Hematocrit 40.7 % (42.0-52.0); Hemoglobin 13.9 g/dl (14.0-18.0); Imm Gran Abs Auto 0.06 X10*3/uL (0.00-0.03); Imm Gran Pct Auto 0.8 % (0.0-0.4); Immature Retic Fraction 13.9 % (2.3-13.4); Lymphocytes Absolute Auto 2.4 X10*3/uL (1.2-4.9); Lymphocytes Percent Auto 30.5 % (20-40); Mean Corpuscular HGB Conc 34.2 g/dl (31.0-36.0); Mean Corpuscular Hemoglobin 31.4 pg (27.0-33.0); Mean Corpuscular Volume 92.1 fL (80.0-98.0); Mean Platelet Volume 10.4 fL (9.4-12.4); Monocytes Absolute Auto 0.6 X10*3/uL (0.1-1.2); Monocytes Percent Auto 7.8 % (2-11); Neutrophils Absolute Auto 4.5 x10*3/uL (2.0-8.3); Platelet Count 141 X10*3/uL (160-400); Red Blood Count 4.42 X10*6/uL (4.60-5.80); Red Cell Distribution Width 13.5 % (11.0-16.0); Retic HGB Equivalent 34.2 pg (30.0-35.0); Reticulocyte Percent 1.6 % (0.5-1.8); Reticulocytes Absolute 0.071 X10*6/uL (0.026-0.095); White Blood Count 7.8 X10*3/uL (4.8-10.8)
[2023-06-19 09:24] LABS: Estimated Average Glucose 117 mg/dL; Hemoglobin A1c % 5.7 % (<6.0)
[2023-06-19 09:46] LABS: B Type Natriuretic Peptide 97 pg/mL (<100)
[2023-06-19 09:51] LABS: Alanine Aminotransferase 20 U/L (0-40); Albumin Level 4.2 g/dL (3.5-5.0); Alkaline Phosphatase 99 U/L (39-117); Anion Gap 15 (12-20); Aspartate Amino Transferase 20 U/L (5-37); Bilirubin Total 0.5 mg/dL (0.0-1.0); Blood Urea Nitrogen 15 mg/dL (9-16); Calcium 9.3 mg/dL (8.4-10.2); Carbon Dioxide 25 mmol/L (22-29); Chloride 104 mmol/L (96-108); Cholesterol 149 mg/dL (<200); Estimated Glomerular Filt Rate > 60; Glucose Random 151 mg/dL (60-115); HDL Cholesterol 44 mg/dL (>40); Iron 87 mcg/dL (45-160); LDL Cholesterol Calculated 93 mg/dL (<100); Magnesium 2.1 mg/dL (1.6-2.6); Percent Iron Saturation 29 % (15-50); Potassium 4.5 mmol/L (3.3-5.1); Sodium 139 mmol/L (135-145); Total Iron Binding Capacity 298 mcg/dL (228-428); Total Protein 7.2 g/dL (6.5-8.0); Triglycerides 63 mg/dL (<150); Unsaturated Iron Binding 211 ug/dL
[2023-06-19 10:13] LABS: Ferritin 180 ng/mL (20-250); Free T4 (Free Thyroxine) 0.87 ng/dL (0.71-1.85); Thyroid Stimulating Hormone 1.76 uIU/mL (0.32-4.0)
[2023-06-19 10:32] LABS: Folate 16.2 ng/mL (> or = 4.0); Vitamin B12 518 pg/mL (200-900)
== END 2023-06-19 08:40 | disposition home or self-care (01) ==
LOC: HO.LAB 08:39
PROVIDERS: PCP Internal Medicine; Visit Provider Internal Medicine
DX: I48.19 Other persistent atrial fibrillation (principal); E78.00 Pure hypercholesterolemia, unspecified
CPT/HCPCS: 36415; 80053; 80061; 82607; 82728; 82746; 83036; 83540; 83735; 83880; 84439; 84443; 85025; 85045

== ENCOUNTER 2023-06-20 08:53 | Outpatient (AMB) | payer MEDICARE, SELFPAY ==
[2023-06-20 08:56] VITALS: BP 138/74; PULSE 67; O2SAT 97; BMI 32.5
--- NOTE | 2023-06-20 08:56 | MHC.OFFVIS ---
Vital Signs 06/20/23 08:56 Height 6 ft Weight 239 lb 9.773 oz BMI 32.5 BP 138/74 Blood Pressure Location Rt brachial Position Sitting Pulse 67 Pulse Source Doppler Pulse Oximetry (%) 97 Oxygen Delivery Method Room Air Intake Visit Reasons: Obstructive sleep apnea Allergies amiodarone Adverse Reaction (Unknown, Verified 06/20/23 09:02) hypothyroidism HPI HPI Obstructive sleep apnea: Details: 78-year-old gentleman with underlying AFib, obesity, lower extremity edema, now followed for moderate obstructive sleep apnea. Patient has been tried on CPAP with a fullface mask, however he has difficulties getting used to it. [facility]LY [facility] Medical History Essential hypertension Hypercholesterolemia Impaired glucose tolerance Leg edema Obesity (BMI 30-39.9) Painful arc syndrome Peripheral neuropathy Peripheral vascular disease Persistent atrial fibrillation Thrombocytopenia Surgical History Status post excision of lipoma No pertinent past surgical history Family History Father Lung cancer Mother Lung cancer Brother Lung cancer Social History Housing: House Alcohol intake: current Alcohol intake frequency: a few times a week Patient Tobacco Use Status: Former Tobacco user Tobacco use type: Cigarette Years Smoked: quit smoking in 1969 e-Cigarette/Vaping Use: Never Used Second Hand Smoke Exposure: No service: No Current occupational status: retired Current occupational exposures/hazards: No Cognitive needs: No Hearing needs: No Vision needs: Yes Review of Systems Const Denies daytime sleepiness, Denies excessive sweating, Denies fatigue, Denies fever(s), Denies lethargy, Denies malaise, Denies night sweats, Denies snoring and Denies weight loss Eyes Denies blurry vision and Denies itchy eyes ENT Denies nasal congestion, Denies post nasal drip, Denies sinus pain, Denies sinus pressure and Denies other ( Thrush) Card Denies chest pain, Denies pedal edema, Denies dyspnea, Denies orthopnea and Denies paroxysmal nocturnal dyspnea Resp Denies cough, Denies hemoptysis, Denies excessive phlegm production, Denies dyspnea, Denies snoring and Denies wheezing GI Denies abdominal pain and Denies heartburn Musc Denies myalgias, Denies arthralgias and Denies joint swelling Skin/Breast Denies rash Neuro Denies memory loss and Denies seizure-like activity Psych Denies abnormal sleep pattern, Denies anxiety and Denies memory loss Endo Denies excessive sweating, Denies fatigue and Denies heat intolerance Isaiah/Lymph Denies easy bruising Aller/Immun Denies itchy eyes, Denies seasonal rhinorrhea and Denies wheezing Physical Exam Vital Signs: Last Vital Signs Pulse 67 06/20/23 08:56 BP 138/74 06/20/23 08:56 Pulse Ox 97 06/20/23 08:56 Oxygen Delivery Method Room Air 06/20/23 08:56 BMI result Body Mass Index 32.5 Const General: no acute distress and alert Nutritional Appearance: not obese Orientation/consciousness: Other orientation findings ( oriented) HEENT Head: Yes atraumatic Eyes General: appearance normal, both eyes and all related structures Sclerae: sclerae normal EOM: EOMs intact bilaterally Neck Neck: Yes supple Lymphatic: no lymphadenopathy noted Resp Effort & Inspection: normal respiratory effort and no use of accessory muscles Auscultation: clear to auscultation bilaterally Cardio Rate: regular rate Rhythm: regular rhythm Heart sounds: no gallops, no murmurs and no rubs Skin General skin exam: other ( warm) Extrem General: No clubbing, No cyanosis and Yes edema (3+ bilateral) Assessment & Plan Assessment & Plan (1) Obstructive sleep apnea: Code(s): G47.33 - Obstructive sleep apnea (adult) (pediatric) Category: Medical Plan: Underlying moderate obstructive sleep apnea trialed on fullface CPAP mask and has difficulties getting use to it. Will trial nasal pillows. Coding Level of Care Code Est Pt Level 3 (74225) Diagnoses Obstructive sleep apnea G47.33
== END 2023-06-20 09:14 | disposition home or self-care (01) ==
PROVIDERS: PCP Internal Medicine; Visit Provider Internal Medicine Pulmonary Disease
DX: G47.33 Obstructive sleep apnea (adult) (pediatric) (principal)
CPT/HCPCS: 99213

== ENCOUNTER → 2023-06-20 08:53 | Outpatient (BNVA) | payer MEDICARE, SELFPAY | PROVIDERS: PCP Internal Medicine; Visit Provider Internal Medicine Pulmonary Disease | DX: G47.33 Obstructive sleep apnea (adult) (pediatric) (principal) | CPT/HCPCS: 99212 ==

== ENCOUNTER 2023-06-24 08:00 | Outpatient (AMB) | payer MEDICARE, SELFPAY ==
--- NOTE | 2023-06-24 08:09 | MHC.OFFVISCO ---
Intake Intake Visit Reasons: Anticoagulation Allergies amiodarone Adverse Reaction (Unknown, Verified 06/24/23 08:05) hypothyroidism Medication List - Last Reconciled 06/24/23 by Christina Brown RN atorvastatin 40 mg PO BEDTIME betamethasone dipropionate 0.05% appl topical BID PRN digoxin 125 mcg PO DAILY diltiazem HCl CD 240 mg PO DAILY furosemide 20 mg PO DAILY [JUXTA LITE Compression As directed] lisinopril 40 mg PO DAILY metoprolol succinate ER 200 mg PO DAILY warfarin 5 mg See Protocol PO DAILY Nursing Note INR 3.2-?? out of therapeutic range- 2-3 Medications and supplements reviewed Patient status: no c.o Medications or supplements: no changes Diet: did not have greens Denies any signs and symptoms of bleeding or clotting or unusual bruising Bleeding, bruising, clotting discussed Nutritional guidance given: eat greens to lower Dose: 5mg x 5, 2.5mg x 2 F/U INR Date : pt req 4 weeks? Patient verbalizing understanding of instructions given. Anti-Coag Initial Assessment Social Hx Patient Tobacco Use Status: Former Tobacco user Tobacco use type: Cigarette alcohol intake: current Alcohol intake frequency: a few times a week Coding Level of Care Code Est Patient Level 1 Diagnoses Current use of anticoagulant therapy Z79.01 Assessment & Plan Assessment & Plan (1) Current use of anticoagulant therapy: Code(s): Z79.01 - [facility]P (current) use of 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
[2023-06-24 08:10] LABS: Prothrombin Time Whole Bld POC 38.5 sec (11.1-13.5); ~PT, ~INR - Anti Coag Clinic 3.2 (0.9-1.1)
== END 2023-06-24 08:15 | disposition home or self-care (01) ==
LOC: HO.ACS 08:00
PROVIDERS: PCP Internal Medicine; Visit Provider Internal Medicine
DX: Z79.01 Long term (current) use of anticoagulants (principal)

== ENCOUNTER → 2023-06-24 08:00 | Outpatient (BNVA) | payer MEDICARE, SELFPAY | PROVIDERS: PCP Internal Medicine; Visit Provider Internal Medicine | DX: I48.19 Other persistent atrial fibrillation (principal); Z51.81 Encounter for therapeutic drug level monitoring; Z79.01 Long term (current) use of anticoagulants | CPT/HCPCS: 85610; 99211 ==

== ENCOUNTER 2023-07-23 08:01 | Outpatient (AMB) | payer MEDICARE, SELFPAY ==
[2023-07-23 08:09] LABS: Prothrombin Time Whole Bld POC 37.1 sec (11.1-13.5); ~PT, ~INR - Anti Coag Clinic 3.1 (0.9-1.1)
--- NOTE | 2023-07-23 08:12 | MHC.OFFVISCO ---
Intake Intake Visit Reasons: Anticoagulation Allergies amiodarone Adverse Reaction (Unknown, Verified 07/23/23 08:03) hypothyroidism Medication List - Last Reconciled 07/23/23 by Precious King RN atorvastatin 40 mg PO BEDTIME betamethasone dipropionate 0.05% appl topical BID PRN digoxin 125 mcg PO DAILY diltiazem HCl CD 240 mg PO DAILY furosemide 20 mg PO DAILY [JUXTA LITE Compression As directed] lisinopril 40 mg PO DAILY metoprolol succinate ER 200 mg PO DAILY warfarin 5 mg See Protocol PO DAILY Nursing Note INR: 3.1 in therapeutic range of 2-3 Medications and supplements reviewed: no changes No changes in health, diet, medications, or supplements, Denies any signs and symptoms of bleeding or bruising or clotting. Bleeding, bruising, clotting discussed Nutritional guidance given Dose: 5mg X 5 days and 2.5mg X 2 days F/U INR: 1 month Patient verbalizes understanding of instructions given Anti-Coag Initial Assessment Social Hx Patient Tobacco Use Status: Former Tobacco user Tobacco use type: Cigarette alcohol intake: current Alcohol intake frequency: a few times a week Coding Level of Care Code Est Patient Level 1 Diagnoses Current use of anticoagulant therapy Z79.01 Results AMB INR Fingerstick AMB INR Fingerstick 3.1 Last Edit by Precious King RN on 07/23/23 08:09 interface delay Assessment & Plan Assessment & Plan (1) Current use of anticoagulant therapy: Code(s): 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
== END 2023-07-23 08:13 | disposition home or self-care (01) ==
LOC: HO.ACS 08:01
PROVIDERS: PCP Internal Medicine; Visit Provider Internal Medicine
DX: Z79.01 Long term (current) use of anticoagulants (principal)

== ENCOUNTER → 2023-07-23 08:01 | Outpatient (BNVA) | payer MEDICARE, SELFPAY | PROVIDERS: PCP Internal Medicine; Visit Provider Internal Medicine | DX: I48.19 Other persistent atrial fibrillation (principal); Z79.01 Long term (current) use of anticoagulants; Z51.81 Encounter for therapeutic drug level monitoring | CPT/HCPCS: 85610; 99211 ==

== ENCOUNTER 2023-07-23 08:23 | Outpatient (AMB) | payer MEDICARE, SELFPAY ==
[2023-07-23 08:41] VITALS: BP 128/66; PULSE 84; O2SAT 96; BMI 32.3
--- NOTE | 2023-07-23 08:41 | MHC.PC.OV ---
Vital Signs 07/23/23 08:41 Height 6 ft Weight 238 lb 0.8 oz BMI 32.3 BP 128/66 Blood Pressure Location Lt brachial Position Sitting Pulse 84 Pulse Source Pulse Oximeter Pulse Oximetry (%) 96 Oxygen Delivery Method Room Air Intake Visit Reasons: Atrial fibrillation Paver Installer Required: No Allergies amiodarone Adverse Reaction (Unknown, Verified 07/23/23 08:41) hypothyroidism Tobacco use date assessed: 07/23/23 Fall risk assessment: No Falls in past year Last assessed Fall Risk: 07/23/23 Dental Screening Dental Screen Date: 07/23/23 Did you have a dental visit in the last 12 months?: No Did you have a dental problem in the last 6 months where you did not have access to dental care?: No HPI Atrial fibrillation HPI Details 78-year-old obese male with hypertension hypercholesterolemia atrial fibrillation and impaired glucose tolerance last seen in 01/07/2023. Review of the notes has seen Pulmonary last month for the obstructive sleep apnea advised trial of nasal pillows. Patient has seen Dermatology for right knee basal cell carcinoma. 01/07/2023 seen by Cardiology atrial fibrillation on diltiazem and digoxin [facility] Medical History Essential hypertension Hypercholesterolemia Impaired glucose tolerance Leg edema Obesity (BMI 30-39.9) Painful arc syndrome Peripheral neuropathy Peripheral vascular disease Persistent atrial fibrillation Thrombocytopenia Surgical History Status post excision of lipoma No pertinent past surgical history Family History Father Lung cancer Mother Lung cancer Brother Lung cancer Social History Housing: House Alcohol intake: current Alcohol intake frequency: a few times a week Patient Tobacco Use Status: Former Tobacco user Tobacco use type: Cigarette Years Smoked: quit smoking in 1970 e-Cigarette/Vaping Use: Never Used Second Hand Smoke Exposure: No service: No Current occupational status: retired Current occupational exposures/hazards: No Cognitive needs: No Hearing needs: No Vision needs: Yes Questionnaire PHQ-9 Over the last 2 weeks, how often have you been bothered by any of the following problems? 1. Little interest or pleasure in doing things: not at all 2. Feeling down, depressed, or hopeless: not at all 3. Trouble falling or staying asleep, or sleeping too much: not at all 4. Feeling tired or having little energy: not at all 5. Poor appetite or overeating: not at all 6. Feeling bad about yourself - or that you are a failure or have let yourself or your family down: not at all 7. Trouble concentrating on things, such as reading the newspaper or watching television: not at all 8. Moving or speaking so slowly that other people could have noticed. Or the opposite - being so fidgety or restless that you have been moving around a lot more than usual: not at all 9. Thoughts that you would be better off or of hurting yourself in some way: not at all Total score: 0 Depression Screening Interpretation: Negative Depression Screening Done: Yes 23269 - PHQ-9 Billing: Yes Source: Developed by Drs. Bryant Mullins, Betzaida Bell, Manuel Hernandez and colleagues, with an educational brandi from [employer]. Thrive Questionnaire Date Thrive assessed: 07/23/23 I am a: Patient What is your living situation today?: I have a steady place to live Within the past 12 months, did the food you bought not last and you didn't have the money to get more?: Never true Within the past 12 months, did you worry whether your food would run out before you got money to buy more?: Never true Do you have trouble paying for medicines?: No Do you have trouble getting transportation to medical appointments?: No Do you have trouble paying your heating and electricity bill?: No Do you have trouble taking care of your child, family member or friend?: No Do you have trouble with day-to-day activities such as bathing, preparing meals, shopping, managing finances, etc.?: No Are you currently unemployed and looking for a job?: No Are you interested in more education?: No Please select the resources that you would like help with: None Currently or been in a relationship where the following occur: no concerns reported THRIVE Score: 0 AUDIT C Alcohol Use Questionnaire (AUDIT-C) 1. How often do you have a drink containing alcohol?: 4 or more times a week 2. How many drinks containing alcohol do you have on a typical day when you are drinking?: 5 or 6 3. How often do you have six or more drinks on one occasion?: Never Total Score: 6 SHABNAM-7 AMB Questionnaire SHABNAM-7 Date SHABNAM - 7 assessed: 07/23/23 Feeling nervous, anxious, or on edge: 0 = Not at all Not being able to stop or control worryin = Not at all Worrying too much about different things: 0 = Not at all Trouble relaxin = Not at all Being so restless that it is hard to sit still: 0 = Not at all Becoming easily annoyed or irritable: 0 = Not at all Feeling afraid as if something awful might happen: 0 = Not at all Total SHABNAM-7 score (0-4 normal; 5-9 mild; 10-14 moderate; 15-21 severe): 0 Source: Developed by Drs. Bryant Mullins, Betzaida Bell, Manuel Hernandez and colleagues, with an educational brandi from [employer]. SHABNAM-7 Assessment Billing SHABNAM-7 Assessment Tool: SHABNAM-7 Assessment 31119 Physical exam (Primary Care) Vital Signs: Last Vital Signs Pulse 84 07/23/23 08:41 BP 128/66 07/23/23 08:41 Pulse Ox 96 07/23/23 08:41 Oxygen Delivery Method Room Air 07/23/23 08:41 BMI result Body Mass Index 32.3 Tobacco/Smoking Status: Tobacco use Status Tobacco use date assessed 07/23/23 07/23/23 08:42 Patient Tobacco Use Status Former Tobacco user 07/23/23 08:42 Tobacco use type Cigarette 07/23/23 08:42 e-Cigarette/Vaping Use Never Used 07/23/23 08:42 PHQ-9: PHQ-9 Score PHQ-9: Total score 0 07/23/23 09:05 Depression Screening Interpretation: Negative Thrive Assessment: Date of Thrive Assessment Date Thrive assessed 07/23/23 07/23/23 08:42 Currently or been in a relationship where the following occur: no concerns reported Const General: alert; No acute distress Eyes Conjunctivae: conjunctivae normal Resp Auscultation: clear to auscultation bilaterally Cardio Rate: regular rate Rhythm: regular rhythm GI Inspection: Yes normal to inspection Extrem General: Yes normal to inspection and No edema Results AMB INR Fingerstick AMB INR Fingerstick 3.1 Last Edit by Precious King RN on 07/23/23 08:09 interface delay Assessment and Plan Assessment & Plan (1) Obstructive sleep apnea: Code(s): G47.33 - Obstructive sleep apnea (adult) (pediatric) Plan: Patient has met with the pulmonary to arrange CPAP treatment and has been advised a trial on nasal pillows as patient can not tolerate regular mass (2) Venous stasis dermatitis: Code(s): I87.2 - Venous insufficiency (chronic) (peripheral) Plan: When sitting down elevate the legs, exercise, and support stockings (3) Anemia: Comment: With thrombocytopenia Code(s): D64.9 - Anemia, unspecified Qualifiers: Anemia type: unspecified type Qualified Code(s): D64.9 - Anemia, unspecified Plan: Stable and continue to monitor (4) Obesity (BMI 30-39.9): Code(s): E66.9 - Obesity, unspecified Plan: Diet and exercise (5) Persistent atrial fibrillation: Code(s): I48.19 - Other persistent atrial fibrillation Plan: Patient follows up with Cardiology continue with anticoagulation with Coumadin and continuing with digoxin (6) Essential hypertension: Code(s): I10 - Essential (primary) hypertension Plan: Continue with blood pressure medication. Decrease salt intake and exercise takes diltiazem 240 mg once a day lisinopril 40 mg 1 day and metoprolol 200 mg once a day (7) Hypercholesterolemia: Code(s): E78.00 - Pure hypercholesterolemia, unspecified Plan: Avoid fried foods, chicken skin, eggs, butter margarine, pastries and meat. Be it pork or beef they have a lot of cholesterol LDL goal of less than 100 preferably on atorvastatin 40 mg once a day Orders: Orders Complete Blood Count Auto Diff 3 Months R73.02 - Impaired glucose tolerance (oral) Thyroid Stimulating Hormone 3 Months R73.02 - Impaired glucose tolerance (oral) Comprehensive Met. Panel 3 Months R73.02 - Impaired glucose tolerance (oral) Free T4 (Free Thyroxine) 3 Months R73.02 - Impaired glucose tolerance (oral) Lipid Panel 3 Months E78.00 - Pure hypercholesterolemia, unspecified, R73.02 - Impaired glucose tolerance (oral) B Type Natriuretic Peptide Today R73.02 - Impaired glucose tolerance (oral) Coding Level of Care Code Est Pt Level 4 (23162) Complex EM visit Add On G2211 Diagnoses Obstructive sleep apnea G47.33 Venous stasis dermatitis I87.2 Anemia, unspecified type D64.9 Anemia type: unspecified type Obesity (BMI 30-39.9) E66.9 Persistent atrial fibrillation I48.19 Essential hypertension I10 Hypercholesterolemia E78.00 Additional Codes SHABNAM-7 Assessment Billing - SHABNAM-7 Assessment Tool: SHABNAM-7 Assessment [id number] ([id number])
== END 2023-07-23 09:31 | disposition home or self-care (01) ==
PROVIDERS: PCP Internal Medicine; Visit Provider Internal Medicine
DX: G47.33 Obstructive sleep apnea (adult) (pediatric) (principal); I48.19 Other persistent atrial fibrillation; Z68.32 Body mass index [BMI] 32.0-32.9, adult; E66.9 Obesity, unspecified; I87.2 Venous insufficiency (chronic) (peripheral); D64.9 Anemia, unspecified; I10 Essential (primary) hypertension; E78.00 Pure hypercholesterolemia, unspecified
CPT/HCPCS: 99214; G2211

== ENCOUNTER 2023-08-20 07:54 | Outpatient (REF) | payer MEDICARE, SELFPAY | END 2023-08-20 07:55 | disposition home or self-care (01) | LOC: HO.LAB 07:54 | PROVIDERS: Absent Provider Internal Medicine; PCP Internal Medicine; Visit Provider Internal Medicine | DX: I48.19 Other persistent atrial fibrillation (principal); Z51.81 Encounter for therapeutic drug level monitoring; Z79.01 Long term (current) use of anticoagulants | CPT/HCPCS: 36415; 80162; 85610; 99211 ==

== ENCOUNTER 2023-08-20 07:58 | Outpatient (AMB) | payer MEDICARE, SELFPAY ==
--- NOTE | 2023-08-20 08:08 | MHC.OFFVISCO ---
Intake Intake Visit Reasons: Anticoagulation Allergies amiodarone Adverse Reaction (Unknown, Verified 08/20/23 08:04) hypothyroidism Medication List - Last Reconciled 08/20/23 by Christina Brown RN atorvastatin 40 mg PO BEDTIME betamethasone dipropionate 0.05% appl topical BID PRN digoxin 125 mcg PO DAILY diltiazem HCl CD 240 mg PO DAILY furosemide 20 mg PO DAILY [JUXTA LITE Compression As directed] lisinopril 40 mg PO DAILY metoprolol succinate ER 200 mg PO DAILY warfarin 5 mg See Protocol PO DAILY Nursing Note INR: 3.0- in therapeutic range of 2-3 Medications and supplements reviewed- no changes No changes in health, diet, medications, or supplements, Denies any signs and symptoms of bleeding or bruising or clotting. Bleeding, bruising, clotting discussed Nutritional guidance given Dose: 2.5mg x 2, 5mg x 5 F/U INR: 4 weeks Patient verbalizes understanding of instructions given Anti-Coag Initial Assessment Social Hx Patient Tobacco Use Status: Former Tobacco user Tobacco use type: Cigarette alcohol intake: current Alcohol intake frequency: a few times a week Coding Level of Care Code Est Patient Level 1 Diagnoses Current use of anticoagulant therapy Z79.01 Results AMB INR Fingerstick AMB INR Fingerstick 3.0 Last Edit by Christina Brown RN on 08/20/23 08:10 Assessment & Plan Assessment & Plan (1) Current use of anticoagulant therapy: Code(s): 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
[2023-08-20 08:09] LABS: Prothrombin Time Whole Bld POC 35.9 sec (11.1-13.5)
== END 2023-08-20 08:13 | disposition home or self-care (01) ==
LOC: HO.ACS 07:58
PROVIDERS: PCP Internal Medicine; Visit Provider Internal Medicine
DX: Z79.01 Long term (current) use of anticoagulants (principal)

== ENCOUNTER 2023-09-19 08:00 | Outpatient (AMB) | payer MEDICARE, SELFPAY ==
[2023-09-19 08:09] LABS: Prothrombin Time Whole Bld POC 32.8 sec (11.1-13.5); ~PT, ~INR - Anti Coag Clinic 2.7 (0.9-1.1)
--- NOTE | 2023-09-19 08:13 | MHC.OFFVISCO ---
Intake Intake Visit Reasons: Anticoagulation Allergies amiodarone Adverse Reaction (Unknown, Verified 09/19/23 08:01) hypothyroidism Medication List - Last Reconciled 09/19/23 by Karen Park RN atorvastatin 40 mg PO BEDTIME betamethasone dipropionate 0.05% appl topical BID PRN digoxin 125 mcg PO DAILY diltiazem HCl CD 240 mg PO DAILY furosemide 20 mg PO DAILY [JUXTA LITE Compression As directed] lisinopril 40 mg PO DAILY metoprolol succinate ER 200 mg PO DAILY warfarin 5 mg See Protocol PO DAILY Nursing Note INR: 2.7 in therapeutic range Medications and supplements reviewed No changes in health, diet, medications, or supplements, Denies any signs and symptoms of bleeding or bruising or clotting. 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
== END 2023-09-19 08:14 | disposition home or self-care (01) ==
LOC: HO.ACS 08:00
PROVIDERS: PCP Internal Medicine; Visit Provider Internal Medicine
DX: Z79.01 Long term (current) use of anticoagulants (principal)

== ENCOUNTER → 2023-09-19 08:00 | Outpatient (BNVA) | payer MEDICARE, SELFPAY | PROVIDERS: PCP Internal Medicine; Visit Provider Internal Medicine | DX: I48.19 Other persistent atrial fibrillation (principal); Z79.01 Long term (current) use of anticoagulants; Z51.81 Encounter for therapeutic drug level monitoring | CPT/HCPCS: 85610; 99211 ==

== ENCOUNTER 2023-10-24 07:58 | Outpatient (AMB) | payer MEDICARE, SELFPAY ==
--- NOTE | 2023-10-24 08:14 | MHC.OFFVISCO ---
Intake Intake Visit Reasons: Anticoagulation Allergies amiodarone Adverse Reaction (Unknown, Verified 10/24/23 08:07) hypothyroidism Medication List - Last Reconciled 10/24/23 by Christina Brown RN atorvastatin 40 mg PO BEDTIME betamethasone dipropionate 0.05% appl topical BID PRN digoxin 125 mcg PO DAILY diltiazem HCl CD 240 mg PO DAILY furosemide 20 mg PO DAILY [JUXTA LITE Compression As directed] lisinopril 40 mg PO DAILY metoprolol succinate ER 200 mg PO DAILY warfarin 5 mg See Protocol PO DAILY Nursing Note INR: 3.0- in therapeutic range of 2-3 Medications and supplements reviewed No changes in health, diet, medications, or supplements, Denies any signs and symptoms of bleeding or bruising or clotting. Bleeding, bruising, clotting discussed Nutritional guidance given Dose: 2.5mg x 2, 5mg x 5 F/U INR: 4 weeks Patient verbalizes understanding of instructions given pt states bloody nose last week due to irritation from finger- instructed to call acs with any further nose bleeds Anti-Coag Initial Assessment Social Hx Patient Tobacco Use Status: Former Tobacco user Tobacco use type: Cigarette alcohol intake: current Alcohol intake frequency: a few times a week Coding Level of Care Code Est Patient Level 1 Diagnoses Current use of anticoagulant therapy Z79.01 Results AMB INR Fingerstick AMB INR Fingerstick 3.0 Last Edit by Christina Brown RN on 10/24/23 08:15 Assessment & Plan Assessment & Plan (1) Current use of anticoagulant therapy: Code(s): 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
[2023-10-24 08:15] LABS: Prothrombin Time Whole Bld POC 36.1 sec (11.1-13.5)
== END 2023-10-24 08:19 | disposition home or self-care (01) ==
LOC: HO.ACS 07:58
PROVIDERS: PCP Internal Medicine; Visit Provider Internal Medicine
DX: Z79.01 Long term (current) use of anticoagulants (principal)

== ENCOUNTER → 2023-10-24 07:58 | Outpatient (BNVA) | payer MEDICARE, SELFPAY | PROVIDERS: PCP Internal Medicine; Visit Provider Internal Medicine | DX: I48.19 Other persistent atrial fibrillation (principal); Z79.01 Long term (current) use of anticoagulants; Z51.81 Encounter for therapeutic drug level monitoring | CPT/HCPCS: 85610; 99211 ==

== ENCOUNTER 2023-11-21 08:02 | Outpatient (AMB) | payer MEDICARE, SELFPAY ==
[2023-11-21 08:13] LABS: Prothrombin Time Whole Bld POC 22.8 sec (11.1-13.5); ~PT, ~INR - Anti Coag Clinic 1.9 (0.9-1.1)
--- NOTE | 2023-11-21 08:23 | MHC.OFFVISCO ---
Intake Intake Visit Reasons: Anticoagulation Allergies amiodarone Adverse Reaction (Unknown, Verified 11/21/23 08:07) hypothyroidism Medication List - Last Reconciled 11/21/23 by Precious King RN atorvastatin 40 mg PO BEDTIME betamethasone dipropionate 0.05% appl topical BID PRN digoxin 125 mcg PO DAILY diltiazem HCl CD 240 mg PO DAILY furosemide 20 mg PO DAILY [JUXTA LITE Compression As directed] lisinopril 40 mg PO DAILY metoprolol succinate ER 200 mg PO DAILY warfarin 5 mg See Protocol PO DAILY Nursing Note INR: 1.9 in therapeutic range of 2-3 Medications and supplements reviewed No changes in health, diet, medications, or supplements, Denies any signs and symptoms of bleeding or bruising or clotting. Bleeding, bruising, clotting discussed Nutritional guidance given to avoid greens today and have a serving of food from the list that raises the INR. Food list reviewed and given to pt. 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
== END 2023-11-21 08:26 | disposition home or self-care (01) ==
LOC: HO.ACS 08:02
PROVIDERS: PCP Internal Medicine; Visit Provider Internal Medicine
DX: Z79.01 Long term (current) use of anticoagulants (principal)

== ENCOUNTER → 2023-11-21 08:02 | Outpatient (BNVA) | payer MEDICARE, SELFPAY | PROVIDERS: PCP Internal Medicine; Visit Provider Internal Medicine | DX: I48.19 Other persistent atrial fibrillation (principal); Z79.01 Long term (current) use of anticoagulants; Z51.81 Encounter for therapeutic drug level monitoring | CPT/HCPCS: 85610; 99211 ==

== ENCOUNTER 2023-12-04 08:05 | Outpatient (REF) | payer MEDICARE, SELFPAY ==
[2023-12-04 08:28] LABS: MANUAL DIFF FLAG NO
[2023-12-04 08:43] LABS: Basophils Absolute Auto 0.1 X10*3/uL (0.0-0.2); Basophils Percent Auto 0.8 % (0-2); Eosinophils Absolute Auto 0.2 X10*3/uL (0.0-0.4); Eosinophils Percent Auto 2.6 % (0-4); Hematocrit 36.1 % (42.0-52.0); Hemoglobin 12.5 g/dl (14.0-18.0); Imm Gran Abs Auto 0.05 X10*3/uL (0.00-0.03); Imm Gran Pct Auto 0.6 % (0.0-0.4); Lymphocytes Absolute Auto 2.6 X10*3/uL (1.2-4.9); Lymphocytes Percent Auto 30.1 % (20-40); Mean Corpuscular HGB Conc 34.6 g/dl (31.0-36.0); Mean Corpuscular Hemoglobin 32.1 pg (27.0-33.0); Mean Corpuscular Volume 92.6 fL (80.0-98.0); Mean Platelet Volume 10.5 fL (9.4-12.4); Monocytes Absolute Auto 0.9 X10*3/uL (0.1-1.2); Monocytes Percent Auto 10.1 % (2-11); Neutrophils Absolute Auto 4.9 x10*3/uL (2.0-8.3); Neutrophils Percent Auto 55.8 % (45-73); Platelet Count 144 X10*3/uL (160-400); White Blood Count 8.8 X10*3/uL (4.8-10.8)
[2023-12-04 09:18] LABS: B Type Natriuretic Peptide 155 pg/mL (<100)
[2023-12-04 09:26] LABS: Alanine Aminotransferase 18 U/L (0-40); Albumin Level 4.1 g/dL (3.5-5.0); Alkaline Phosphatase 87 U/L (39-117); Anion Gap 10 (12-20); Aspartate Amino Transferase 18 U/L (5-37); Bilirubin Total 0.6 mg/dL (0.0-1.0); Blood Urea Nitrogen 14 mg/dL (9-16); Calcium 9.4 mg/dL (8.4-10.2); Carbon Dioxide 27 mmol/L (22-29); Chloride 106 mmol/L (96-108); Cholesterol 139 mg/dL (<200); Estimated Glomerular Filt Rate > 60; Glucose Random 99 mg/dL (60-115); HDL Cholesterol 42 mg/dL (>40); LDL Cholesterol Calculated 78 mg/dL (<100); Potassium 3.9 mmol/L (3.3-5.1); Sodium 139 mmol/L (135-145); Total Protein 6.8 g/dL (6.5-8.0); Triglycerides 99 mg/dL (<150)
[2023-12-04 09:51] LABS: Free T4 (Free Thyroxine) 0.89 ng/dL (0.71-1.85); Thyroid Stimulating Hormone 2.07 uIU/mL (0.32-4.0)
== END 2023-12-04 08:06 | disposition home or self-care (01) ==
LOC: HO.LAB 08:05
PROVIDERS: PCP Internal Medicine; Visit Provider Internal Medicine
DX: R73.02 Impaired glucose tolerance (oral) (principal); E78.00 Pure hypercholesterolemia, unspecified
CPT/HCPCS: 36415; 80053; 80061; 83880; 84439; 84443; 85025

== ENCOUNTER 2023-12-06 08:29 | Outpatient (AMB) | payer MEDICARE, SELFPAY ==
[2023-12-06 08:35] VITALS: BP 136/82; PULSE 77; O2SAT 97; BMI 33.2
--- NOTE | 2023-12-06 08:35 | A.OFFPC_ITS ---
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 Accompanied by: Self / Same As Patient Allergies amiodarone Adverse Reaction (Unknown, Verified 12/06/23 08:35) hypothyroidism Tobacco use date assessed: 12/06/23 Fall risk assessment: 1 Fall in past year Last assessed Fall Risk: 12/06/23 Dental Screening Dental Screen Date: 12/06/23 Did you have a dental visit in the last 12 months?: No Did you have a dental problem in the last 6 months where you did not have access to dental care?: No Was dental information given to patient?: No HPI JAMIA, A fib HPI Details 78-year-old obese male with obstructive sleep apnea venous stasis dermatitis chronic anemia persistent atrial fibrillation hypertension hypercholesterolemia last seen in July 2023. Review of the notes has seen Derm atology recently August 2023 , cannot tolerate CPAP [facility] Medical History Essential hypertension Hypercholesterolemia Impaired glucose tolerance Leg edema Obesity (BMI 30-39.9) Painful arc syndrome Peripheral neuropathy Peripheral vascular disease Persistent atrial fibrillation Thrombocytopenia Surgical History Status post excision of lipoma No pertinent past surgical history Family History Father Lung cancer Mother Lung cancer Brother Lung cancer Social History Housing: House Alcohol intake: current Alcohol intake frequency: a few times a week Patient Tobacco Use Status: Former Tobacco user Tobacco use type: Cigarette Years Smoked: quit smoking in 1970 e-Cigarette/Vaping Use: Never Used Second Hand Smoke Exposure: No service: No Current occupational status: retired Current occupational exposures/hazards: No Cognitive needs: No Hearing needs: No Vision needs: Yes Questionnaire PHQ-9 Over the last 2 weeks, how often have you been bothered by any of the following problems? 1. Little interest or pleasure in doing things: not at all 2. Feeling down, depressed, or hopeless: not at all 3. Trouble falling or staying asleep, or sleeping too much: not at all 4. Feeling tired or having little energy: not at all 5. Poor appetite or overeating: not at all 6. Feeling bad about yourself - or that you are a failure or have let yourself or your family down: not at all 7. Trouble concentrating on things, such as reading the newspaper or watching television: not at all 8. Moving or speaking so slowly that other people could have noticed. Or the op posite - being so fidgety or restless that you have been moving around a lot more than usual: not at all 9. Thoughts that you would be better off or of hurting yourself in some way: not at all Total score: 0 Depression Screening Interpretation: Negative Depression Screening Done: Yes 89443 - PHQ-9 Billing: Yes Source: Developed by Drs. Bryant Mullins, Betzaida Bell, Manuel Hernandez and colleagues, with an educational brandi from [employer]. Thrive Questionnaire Date Thrive assessed: 12/06/23 I am a: Patient What is your living situation today?: I have a steady place to live Within the past 12 months, did the food you bought not last and you didn't have the money to get more?: Never true Within the past 12 months, did you worry whether your food would run out before you got money to buy more?: Never true Do you have trouble paying for medicines?: No Do you have trouble getting transportation to medical appointments?: No Do you have trouble paying your heating and electricity bill?: No Do you have trouble taking care of your child, family member or friend?: No Do you have trouble with day-to-day activities such as bathing, preparing meals, shopping, managing finances, etc.?: No Are you currently unemployed and looking for a job?: No Are you interested in more education?: No Please select the resources that you would like help with: None Currently or been in a relationship where the following occur: No concerns reported THRIVE Score: 0 AUDIT C Alcohol Use Questionnaire (AUDIT-C) 1. How often do you have a drink containing alcohol?: 4 or more times a week 2. How many drinks containing alcohol do you have on a typical day when you are drinking?: 5 or 6 3. How often do you have six or more drinks on one occasion?: Never Total Score: 6 SHABNAM-7 AMB Questionnaire SHABNAM-7 Date SHABNAM - 7 assessed: 12/06/23 Feeling nervous, anxious, or on edge: 0 = Not at all Not being able to stop or control worryin = Not at all Worrying too much about different things: 0 = Not at all Trouble relaxin = Not at all Being so restless that it is hard to sit still: 0 = Not at all Becoming easily annoyed or irritable: 0 = Not at all Feeling afraid as if something awful might happen: 0 = Not at all Total SHABNAM-7 score (0-4 normal; 5-9 mild; 10-14 moderate; 15-21 severe): 0 Source: Developed by Drs. Bryant Mullins, Betzaida Bell, Manuel Hernandez and colleagues, with an educational brandi from [employer]. SHABNAM-7 Assessment Billing SHABNAM-7 Assessment Tool: SHABNAM-7 Assessment 99084 Physical exam (Primary Care) Vital Signs: Last Vital Signs Pulse 77 12/06/23 08:35 BP 136/82 12/06/23 08:35 Pulse Ox 97 12/06/23 08:35 Oxygen Delivery Method Room Air 12/06/23 08:35 BMI result Body Mass Index 33.2 Tobacco/Smoking Status: Tobacco use Status Tobacco use date assessed 12/06/23 12/06/23 08:36 Patient Tobacco Use Status Former Tobacco user 12/06/23 08:36 Tobacco use type Cigarette 12/06/23 08:36 e-Cigarette/Vaping Use Never Used 12/06/23 08:36 PHQ-9: PHQ-9 Score PHQ-9: Total score 0 12/06/23 08:37 Depression Screening Interpretation: Negative Thrive Assessment: Date of Thrive Assessment Date Thrive assessed 12/06/23 12/06/23 08:36 Currently or been in a relationship where the following occur: No concerns reported Const General: alert; No acute distress Eyes Conjunctivae: conjunctivae normal Resp Auscultation: clear to auscultation bilaterally GI Inspection: Yes normal to inspection Extrem Other: ++ edema bilateral - pulses via doppler good, venous stasis dermatitis. General: No edema Office Procedures Flu Questionnaire Does the patient have a severe egg allergy?: No Does the patient have severe life threatening allergies?: No Does the patient have a fever or illness today?: No Has the patient ever had Guillain-[place] Syndrome?: No Has the patient ever had any past reaction to a flu shot?: No Immunizations Fluarix Triv [id number] (PF) 45 mcg (15 mcg x 3)/0.5 mL IM syringe Performing Provider: Carter Garg MD [facility] [place] [facility] Administered by: JEANNINE Henry on 12/06/23 09:15 Dose Route Admin Location Dispensed Lot Number Expiration Date [facility] Income Tax Auditor 0.5 mL IM Left Deltoid 0.5 mL [id number] 08/17/24 [id number] [employer] VIS Given Date VIS Provided VIS Publication Date 12/06/23 Single Vaccine 20 Eligibility Eligibility Date Funding Source Not [facility] Eligible 12/06/23 Private Coding Level of Care Code Est Pt Level 4 (10229) Diagnoses Persistent atrial fibrillation I48.19 Anemia, unspecified type D64.9 Anemia type: unspecified type Obesity (BMI 30-39.9) E66.9 Essential hypertension I10 Hypercholesterolemia E78.00 Obstructive sleep apnea G47.33 Dry skin dermatitis L85.3 Nail dystrophy L60.3 SOB (shortness of breath) R06.02 Additional Codes SHABNAM-7 Assessment Billing - SHABNAM-7 Assessment Tool: SHABNAM-7 Assessment 84202 ([id number]) Assessment & Plan Assessment & Plan (1) Persistent atrial fibrillation: Code(s): I48.19 - Other persistent atrial fibrillation Category: Medical Plan: Continue with present diltiazem and Coumadin (2) Anemia: Comment: With thrombocytopenia Code(s): D64.9 - Anemia, unspecified Category: Medical Qualifiers: Anemia type: unspecified type Qualified Code(s): D64.9 - Anemia, unspecified Plan: Stable continue to monitor (3) Obesity (BMI 30-39.9): Code(s): E66.9 - Obesity, unspecified Category: Medical Plan: Diet and exercise (4) Essential hypertension: Code(s): I10 - Essential (primary) hypertension Category: Medical Plan: Continue with blood pressure medication. Decrease salt intake and exercise on metoprolol 200 mg once a day diltiazem 240 mg once a day (5) Hypercholesterolemia: Code(s): E78.00 - Pure hypercholesterolemia, unspecified Category: Medical Plan: Avoid fried foods, chicken skin, eggs, butter margarine, pastries and meat. Be it pork or beef they have a lot of cholesterol LDL goal of less than 130 and triglyceride of less than 150 on atorvastatin 40 mg at bedtime (6) Obstructive sleep apnea: Code(s): G47.33 - Obstructive sleep apnea (adult) (pediatric) Category: Medical Plan: Patient has been prescribed the CPAP. (7) Dry skin dermatitis: Code(s): L85.3 - Xerosis cutis Category: Medical Plan: discussed about saline soaks and luz marina bandage and vaseline to get the skin softer (8) Nail dystrophy: Code(s): L60.3 - Nail dystrophy Category: Medical Plan: podiatry referral (9) SOB (shortness of breath): Code(s): R06.02 - Shortness of breath Category: Medical Plan: requested for chest xray - echo pending. Orders: Orders Influenza [id number] Immunization Today Z23 - Encounter for immunization Referrals Vascular Surgery Referral I73.9 - Peripheral vascular disease, unspecified Podiatry Referral L60.3 - Nail dystrophy Medications: New Fluarix Triv [id number] (PF) (flu vacc [id number] 6mos up(PF)) 0.5 mL IM ONCE 0.5 mL 0RF NS Z23 - Encounter for immunization
== END 2023-12-06 09:17 | disposition home or self-care (01) ==
PROVIDERS: PCP Internal Medicine; Visit Provider Internal Medicine
DX: I48.19 Other persistent atrial fibrillation (principal); D64.9 Anemia, unspecified; E66.811 Obesity, class 1; Z68.33 Body mass index [BMI] 33.0-33.9, adult; I10 Essential (primary) hypertension; E78.00 Pure hypercholesterolemia, unspecified; G47.33 Obstructive sleep apnea (adult) (pediatric); L85.3 Xerosis cutis; L60.3 Nail dystrophy; R06.02 Shortness of breath

== ENCOUNTER → 2023-12-06 08:29 | Outpatient (BNVA) | payer MEDICARE, SELFPAY | PROVIDERS: PCP Internal Medicine; Visit Provider Internal Medicine | DX: I48.19 Other persistent atrial fibrillation (principal); D64.9 Anemia, unspecified; E66.9 Obesity, unspecified; Z68.33 Body mass index [BMI] 33.0-33.9, adult; L60.3 Nail dystrophy; I10 Essential (primary) hypertension; E78.00 Pure hypercholesterolemia, unspecified; G47.33 Obstructive sleep apnea (adult) (pediatric); L85.3 Xerosis cutis; R06.02 Shortness of breath; Z79.01 Long term (current) use of anticoagulants; Z79.899 Other long term (current) drug therapy; Z23 Encounter for immunization | CPT/HCPCS: 90471; 90656; 96127; 99212 ==

== ENCOUNTER 2023-12-19 07:59 | Outpatient (AMB) | payer MEDICARE, SELFPAY ==
[2023-12-19 08:53] LABS: Prothrombin Time Whole Bld POC 37.8 sec (11.1-13.5); ~PT, ~INR - Anti Coag Clinic 3.1 (0.9-1.1)
--- NOTE | 2023-12-19 08:58 | MHC.OFFVISCO ---
Intake Intake Visit Reasons: Anticoagulation Allergies amiodarone Adverse Reaction (Unknown, Verified 12/19/23 08:44) hypothyroidism Medication List - Last Reconciled 12/19/23 by Precious Muniz RN atorvastatin 40 mg PO BEDTIME betamethasone dipropionate 0.05% appl topical BID PRN digoxin 125 mcg PO DAILY diltiazem HCl CD 240 mg PO DAILY furosemide 20 mg PO DAILY [JUXTA LITE Compression As directed] lisinopril 40 mg PO DAILY metoprolol succinate ER 200 mg PO DAILY warfarin 5 mg See Protocol PO DAILY Nursing Note AMB to ACS following cardiology visit- echo Medications and supplements reviewed No changes in health, diet, medications, or supplements, pt sts he fell in his driveway a couple days ago, after much discussion sts he did not hit head, sts cradled head in right hand, noted surface small ecchymotic areas to right forearm denies any bruising to buttocks area, sts there is the usual nerve pain there sciatica Denies any bloody nose, discussed importance of ER visit if any falls where head injury occurs Pt is alert, orient, joking often during visit- seemed to mix up instructions related to greens effect on INR vs reds pt is known consumer of alcohol, offers today that he drinks daily at least 3 beers discussed alcohol effect on INR (raises bleeding risk) and effect on balance INR 3.1 just above therapeutic range Dose: continue usual dosing 2.5mg x 2 days and 5mg x 5 days Nutritional guidance given- have greens today to help lower, then eat a balanced diet, variety of foods, be consistent and decrease ETOH F/U INR: 4 weeks Patient verbalizes understanding of instructions given after review Anti-Coag Initial Assessment Social Hx Patient Tobacco Use Status: Former Tobacco user Tobacco use type: Cigarette alcohol intake: current Alcohol intake frequency: a few times a week Coding Level of Care Code Est Patient Level 1 Diagnoses Current use of anticoagulant therapy Z79.01 Time Spent (min) 15 Assessment & Plan Assessment & Plan (1) Current use of anticoagulant therapy: Code(s): Z79.01 - intermission coordinator (current) use of 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
== END 2023-12-19 09:31 | disposition home or self-care (01) ==
LOC: HO.ACS 07:59
PROVIDERS: PCP Internal Medicine; Visit Provider Internal Medicine
DX: Z79.01 Long term (current) use of anticoagulants (principal)

== ENCOUNTER → 2023-12-19 08:04 | Outpatient (REF) | payer MEDICARE, SELFPAY ==
--- NOTE | 2023-12-19 08:07 | CA_ITS ---
Transthoracic Echocardiogram Patient (Last, First, Middle): Chele Timmons G Gender: Male Date of : 1945 Age: 78 Procedure Date: 12/19/2023 Procedure Type: Transthoracic Echocardiogram Location: OP Height: 182. cm Weight: 108.86 kg BSA: 2.29 m2 Heart Rate: 76 bpm BP: 125 / 60 mmHg Gluing Pressman: CON Referring MD: Carroll Wells MD Symptoms: I48.19 - Other persistent atrial fibrillation Study Quality: Fair ECG Rhythm: Atrial Fibrillation Conclusions: - The left ventricular systolic function is normal. The calculated ejection fraction is 65% by biplane method. - There is mild calcification of the aortic valve. - There is mild mitral annular calcification. Findings Left Ventricle Normal left ventricular cavity size. There is mildly increased left ventricular wall thickness. The left ventricular systolic function is normal. The calculated ejection fraction is 65% by biplane method. There is no evidence of regional wall motion abnormalities. Diastolic function is indeterminate on the basis of available data. Right Ventricle Normal right ventricular cavity size and systolic function. Atria The left atrium is moderately dilated. The right atrium is mildly dilated. Aortic Valve There is mild calcification of the aortic valve. There is no aortic valve stenosis. There is no aortic valve regurgitation. Mitral Valve There is mild mitral annular calcification. There is mild mitral valve regurgitation. There is no mitral valve stenosis. Pulmonic Valve The pulmonic valve is likely normal. Tricuspid Valve There is no tricuspid valve regurgitation. There is no evidence of pulmonary hypertension. Great Vessels The asc aorta is normal in size. Venous The inferior vena cava is mildly dilated and collapses greater than 50% with inspiration. Pericardium/Pleural There is no evidence of pericardial effusion. Prior Study Comparison No significant change compared to prior study dated: 09/24/2019. Measurements 2D Linear Measurements IVSd: 1.13 0.6-0.9/0.6-1.0 cm LVIDd: 4.36 3.9-5.3/4.2-5.9 cm LVIDd Index: 1.90 2.4-3.2/2.2-3.1 cm/m2 LVIDs: 2.41 2.0-3.6 cm LVPWd: 1.03 0.7-1.1 cm LA Diam: 4.60 2.7-3.8/3.0-4.0 cm LAIDs Index: 2.01 1.5-2.3 cm/m2 LV Mass: 202.06 67-162/88-224 g LV Mass Index: 88.23 43-95/49-115 g/m2 LVOT Diam: 2.20 3.0+(-)1.3 cm 2D Systolic Function EF 4C: 60.60 >55% EF 2C: 71.60 >55% EF BiP: 64.60 >55% Mitral Valve MV Pk E: 1.38 MV Decel Time: 197.00 E'Lateral: 9.21 E'Medial: 7.80 E/E' Med: 17.70 E/E' Lat: 15.00 PHT: 58.00 MVA PHT: 3.79 Decel Dent: 6.99 Aortic Valve AoV Pk Adryan: 1.12 AoV Mn Adryan: 0.86 AoV VTI: 0.27 AoV Pk Grad: 5.00 Aov Mn Grad: 3.00 JEREMIAS Cont.VTI: 2.46 LVOT LVOT Pk Adryan: 0.78 LVOT Mn Adryan: 0.57 LVOT VTI: 0.17 LVOT Pk Grad: 2.00 LVOT Mn Grad: 1.00 LVOT Diam: 2.20 LVOT Area: 3.80 Diastolic Function MV Pk E: 1.38 E'Medial: 7.80 E/E' Med: 17.70 E' Laterial: 9.21 E/E' Lat: 15.00 Right Ventricle TAPSE (mm): 20.70 TVS' Adryan: 11.30 Tricuspid Valve TR Pk Adryan: 2.29 TR Pk Grad: 21.00 RA Press: 8.00 RVSP: 29.00 Great Vessels Aorta Sinus of Valsalva: 4.10 2.0-3.5 cm Ao Asc: 3.70 2.1-3.4 cm Pulmonary Valve PV Pk Adryan: 0.77 Peak PV Grad: 2.00 Updated in Other Vendor System with Status of Final Carroll Wells MD electronically signed on 12/20/2023 5:39:59 PM with status of Final
== END ==
LOC: HO.CARD 08:04
PROVIDERS: PCP Internal Medicine; Visit Provider Internal Medicine
DX: I48.19 Other persistent atrial fibrillation (principal); Z51.81 Encounter for therapeutic drug level monitoring; Z79.01 Long term (current) use of anticoagulants
CPT/HCPCS: 85610; 93306; 99211

== ENCOUNTER → 2023-12-19 08:07 | Outpatient (BNV) | payer MEDICARE, SELFPAY | PROVIDERS: PCP Internal Medicine; Visit Provider Internal Medicine | DX: I34.0 Nonrheumatic mitral (valve) insufficiency (principal); I34.81 Nonrheumatic mitral (valve) annulus calcification; I48.19 Other persistent atrial fibrillation | CPT/HCPCS: 93306 ==

== ENCOUNTER 2023-12-31 08:08 | Outpatient (AMB) | payer MEDICARE, SELFPAY ==
[2023-12-31 08:14] VITALS: BP 110/56; PULSE 66; BMI 31.8
--- NOTE | 2023-12-31 08:14 | MHC.OFFVIS ---
Vital Signs 12/31/23 08:14 Height 6 ft Weight 234 lb 2.095 oz BMI 31.8 BP 110/56 L Blood Pressure Location Lt brachial Position Sitting Pulse 66 Intake Visit Reasons: 1 yr fu after echo Helmet Hat Puncher Required: No Accompanied by: Self / Same As Patient Allergies amiodarone Adverse Reaction (Unknown, Verified 12/19/23 08:44) hypothyroidism Medication List - Last Reconciled 12/31/23 by Carroll Wells MD atorvastatin 40 mg PO BEDTIME digoxin 125 mcg PO DAILY diltiazem HCl CD 240 mg PO DAILY furosemide 20 mg PO DAILY [JUXTA LITE Compression As directed] lisinopril 40 mg PO DAILY metoprolol succinate ER 200 mg PO DAILY warfarin 5 mg See Protocol PO DAILY HPI Comments Details: Chele returns for follow-up regarding atrial fibrillation. ?He has had atrial fibrillation for more than 15 years or so.? Underwent cardioversion many years ago which was unsuccessful.? Essentially, he has remained in atrial fibrillation throughout. ? He also has chronic leg swelling, probably multifactorial. Overall, he states he feels good. No cardiac symptoms whatsoever. [facility] Medical History Essential hypertension Hypercholesterolemia Impaired glucose tolerance Leg edema Obesity (BMI 30-39.9) Painful arc syndrome Peripheral neuropathy Peripheral vascular disease Persistent atrial fibrillation Thrombocytopenia Surgical History Status post excision of lipoma No pertinent past surgical history Family History Father Lung cancer Mother Lung cancer Brother Lung cancer Social History Housing: House Alcohol intake: current Alcohol intake frequency: a few times a week Patient Tobacco Use Status: Former Tobacco user Tobacco use type: Cigarette Years Smoked: quit smoking in 1969 e-Cigarette/Vaping Use: Never Used Second Hand Smoke Exposure: No service: No Current occupational status: retired Current occupational exposures/hazards: No Cognitive needs: No Hearing needs: No Vision needs: Yes Review of Systems Const Denies chills, Denies fatigue, Denies fever(s), Denies weight gain and Denies weight loss ENT Denies dizziness Card Denies chest pain, Reports leg edema, Denies lightheadedness, Denies palpitations, Reports dyspnea on exertion, Denies orthopnea and Denies other Resp Denies cough and Reports dyspnea on exertion GI Denies hematochezia and Denies change in stool character Musc Denies abnormal gait, Denies muscle weakness, Denies numbness, Denies radiating pain into limb and Denies tingling Neuro Denies abnormal gait, Denies dizziness, Denies numbness and Denies tingling Endo Denies fatigue and Denies palpitations Physical Exam Vital Signs: Last Vital Signs Pulse 66 12/31/23 08:14 BP 110/56 L 12/31/23 08:14 BMI result Body Mass Index 31.8 Const General: comfortable and no acute distress Orientation/consciousness: patient oriented x3 HEENT Other: Unremarkable Head: Yes normal to inspection Neck Neck: Yes normal visual inspection Chest Chest palpation & inspection: normal inspection of the chest Resp Auscultation: clear to auscultation bilaterally Cardio Palpation: normal PMI Heart sounds: S1 normal heart sound present, S2 normal heart sound present, no gallops, no murmurs and no rubs GI Palpation (GI): Soft to palpation Back/Spine/Pelvis Other: unremarkable Skin General skin exam: no rashes or lesions noted Neuro General: patient oriented x3 Extrem Other: 1-2+ edema, but has stockings on. Some hardening of skin. Chronic changes. General: Yes normal to inspection Psych Mental Status: mental status grossly normal Office Procedures EKG Details: EKG with atrial fibrillation at 66/Min; no significant ST-T changes. [id number], Complete Assessment & Plan Assessment & Plan (1) Persistent atrial fibrillation: Code(s): I48.19 - Other persistent atrial fibrillation Category: Medical Plan: Stable on current meds including diltiazem, metoprolol, digoxin with anticoagulation. Well controlled atrial fibrillation on the EKG. In the recent echocardiogram, LVEF 65%. Mild aortic/mitral calcification. Myocardial perfusion imaging study in the past shows normal perfusion. (2) Essential hypertension: Code(s): I10 - Essential (primary) hypertension Category: Medical Plan: On lisinopril. Blood pressure seems stable. (3) Leg edema: Code(s): R60.0 - Localized edema Category: Medical Plan: Mostly suspect venous insufficiency but can be multifactorial. He is on a small dose of Lasix. (4) Obstructive sleep apnea: Code(s): G47.33 - Obstructive sleep apnea (adult) (pediatric) Category: Medical Plan: CPAP. Follows up with Pulmonary Medicine. Coding Level of Care Code Est Pt Level 4 (82352) Diagnoses Persistent atrial fibrillation I48.19 Essential hypertension I10 Leg edema R60.0 Obstructive sleep apnea G47.33 CPT Codes EKG - CPT: [id number]-[id number], Complete ([id number])
== END 2023-12-31 08:34 | disposition home or self-care (01) ==
PROVIDERS: PCP Internal Medicine; Visit Provider Internal Medicine
DX: I48.19 Other persistent atrial fibrillation (principal); I10 Essential (primary) hypertension; R60.0 Localized edema; G47.33 Obstructive sleep apnea (adult) (pediatric)
CPT/HCPCS: 93010; 99214

== ENCOUNTER → 2023-12-31 08:08 | Outpatient (BNVA) | payer MEDICARE, SELFPAY | PROVIDERS: PCP Internal Medicine; Visit Provider Internal Medicine | DX: I48.19 Other persistent atrial fibrillation (principal); I10 Essential (primary) hypertension; R60.0 Localized edema; G47.33 Obstructive sleep apnea (adult) (pediatric) | CPT/HCPCS: 93005; 99212 ==

== ENCOUNTER 2024-01-21 09:05 | Outpatient (AMB) | payer MEDICARE, SELFPAY ==
--- NOTE | 2024-01-21 09:09 | A.OFFVIS_ITS ---
Intake Visit Reasons: [employer] referral for PVD Intake Note: Patient presents for PVD. Has bilateral leg discoloration. Also has swelling. Accompanied by: Self / Same As Patient Allergies amiodarone Adverse Reaction (Unknown, Verified 01/21/24 09:11) hypothyroidism HPI HPI [employer] referral for PVD: Details: Chele, a pleasant 79-year-old male patient, presenting today on referral from his PCP for bilateral lower extremity swelling and discoloration. He does state he gets pain after walking a significant amount, more than half a mi. he does walk daily. He currently denies any open wounds, but has been getting them in the past. Complaints include pain over varicosities, swelling of lower extremities, cramping, fatigue, and heaviness of the lower extremities. It has been affecting their daily activities including walking, physical activity, and standing. It is noted in bilateral legs. He is nondiabetic and does not smoke. Patient states he has had vein procedures on bilateral lower extremities with Dr. Lara; we are unable to find it in the computer records so likely it was longer than 5 years ago. Patient denies any history of DVT/ PE. Patient denies any history of phlebitis. Trial of compression includes - slight elevation and intermittent compression stockings. They now present for vascular evaluation regarding their varicose veins. [facility] Medical History Leg edema Painful arc syndrome Thrombocytopenia Obesity (BMI 30-39.9) Impaired glucose tolerance Peripheral neuropathy Peripheral vascular disease Hypercholesterolemia Essential hypertension Persistent atrial fibrillation Surgical History Status post excision of lipoma No pertinent past surgical history Family History Father Lung cancer Mother Lung cancer Brother Lung cancer Social History Housing: House Alcohol intake: current Alcohol intake frequency: a few times a week Patient Tobacco Use Status: Former Tobacco user Tobacco use type: Cigarette Years Smoked: quit smoking in 1969 e-Cigarette/Vaping Use: Never Used Second Hand Smoke Exposure: No service: No Current occupational status: retired Current occupational exposures/hazards: No Cognitive needs: No Hearing needs: No Vision needs: Yes Review of Systems Const Reports as per HPI and Denies weakness ENT Reports Normal hearing present and Denies dizziness Card Reports as per HPI, Denies chest pain, Denies chest pain at rest, Denies chest pain with activity, Denies dyspnea and Denies dyspnea on exertion Resp Reports as per HPI, Denies cough, Denies dyspnea and Denies dyspnea on exertion GI Reports as per HPI, Denies abdominal pain, Denies nausea and Denies vomiting Musc Denies numbness Skin/Breast Reports as per HPI, Denies erythema and Denies wounds Neuro Reports Normal hearing present, Denies dizziness, Denies numbness, Denies Sensory deficit (Neuro) and Denies weakness Psych Reports no additional complaints Endo Reports no additional complaints Physical Exam Const General: healthy appearing and no acute distress Orientation/consciousness: patient oriented x3 HEENT Head: Yes normal to inspection Ears: hearing grossly normal bilaterally Mouth: Normal oral and palatal mucosa present Resp Effort & Inspection: normal respiratory effort and able to speak in complete sentences Auscultation: clear to auscultation bilaterally Cardio Jugular venous distension: no JVD Rate: regular rate Rhythm: regular rhythm Heart sounds: S1 normal heart sound present and S2 normal heart sound present Bruits: no abdominal aortic bruits, no carotid bruits, no femoral bruits and no renal bruits Peripheral pulses: Peripheral pulses 2+ throughout GI Inspection: Yes normal to inspection Palpation (GI): No Abdominal aortic bruit present Skin General skin exam: no rashes or lesions noted Wounds: no wounds Hair: normal Neuro General: patient oriented x3 Cranial nerves: Yes Normal hearing present Cognition (Neuro): normal cognition Gait exam (Neuro): Normal gait present Motor exam (neuro): 5/5 motor strength present throughout Sensory Exam: No Sensory deficit (Neuro) Extrem Other: Bilateral lower extremities: Deep erythematous discoloration noted from the tibial tuberosity down to the toes. +2/3 peripheral edema noted. Dry skin noted at all throughout the lower extremities. No wounds noted. CEAP: C - 4 E - primary A - superficial P - reflux General: Yes normal to inspection, Yes full ROM, Yes capillary refill normal and Yes normal gait Assessment & Plan Assessment & Plan (1) Varicose veins of both lower extremities with inflammation: Code(s): I83.11 - Varicose veins of right lower extremity with inflammation; I83.12 - Varicose veins of left lower extremity with inflammation Category: Medical Plan: Chele is presenting today as a referral from his PCP for bilateral lower extremity swelling, pain and discoloration for over a year now. In short, the patient has evidence of venous insufficiency. I have discussed the pathophysiology with the patient. In addition I have provided informational material regarding venous disease to the patient. We have discussed conservative measures including compression, elevation, and exercise. I have also provided a handout regarding appropriate use of compression stockings and where to purchase good compression stockings as well; he does have compression stockings at this point, but they do only run to the mid calf and we discussed about getting ones that are up to his knee. I have taken the liberty of ordering venous insufficiency testing with the patient. They will follow up with me after testing. The patient had an opportunity to ask questions regarding the treatment plan. All questions were answered. No major barriers to understanding were identified. The patient expressed understanding and agreement with the above treatment plan. The patient is aware they should contact our office by phone for worsening of the current condition or the appearance of new symptoms. Thank you for allowing me to participate in the vascular care of this patient. If you have any questions or concerns regarding the treatment for the above condition please do not hesitate to contact me. The office telephone contact is [phone]. This note is constructed using voice recognition software. While every eff ort has been made to ensure accuracy, gas station service attendant errors may have been included. Thank you for allowing me to participate in the care of your patient. Yours sincerely, SIMONE Garcia Orders: Orders US venous duplex LE BI 1 Week I83.11 - Varicose veins of right lower extremity with inflammation, I83.12 - Varicose veins of left lower extremity with inflammation Coding Level of Care Code New Pt Level 4 (25724) Diagnoses Varicose veins of both lower extremities with inflammation I83.11; I83.12
== END 2024-01-21 09:31 | disposition home or self-care (01) ==
PROVIDERS: PCP Internal Medicine; Visit Provider Physician Assistant Surgical
DX: I83.11 Varicose veins of right lower extremity with inflammation (principal); I83.12 Varicose veins of left lower extremity with inflammation
CPT/HCPCS: 99204

== ENCOUNTER → 2024-01-21 09:05 | Outpatient (BNVA) | payer MEDICARE, SELFPAY | PROVIDERS: PCP Internal Medicine; Visit Provider Physician Assistant Surgical | DX: I48.91 Unspecified atrial fibrillation (principal); M67.911 Unspecified disorder of synovium and tendon, right shoulder; I83.11 Varicose veins of right lower extremity with inflammation; I83.12 Varicose veins of left lower extremity with inflammation; Z79.01 Long term (current) use of anticoagulants | CPT/HCPCS: 99202; 99212 ==

== ENCOUNTER 2024-01-21 11:02 | Outpatient (AMB) | payer MEDICARE, SELFPAY ==
--- NOTE | 2024-01-21 11:20 | MHC.OFFWIV ---
Intake Vital Signs 01/21/24 11:22 Height 6 ft Weight 236 lb BMI 32.0 BP 120/80 Blood Pressure Location Lt brachial Position Sitting Pulse 63 Pulse Source Pulse Oximeter Pulse Oximetry (%) 97 Oxygen Delivery Method Room Air Intake Visit Reasons: EP Rt shoulder pain Intake Note: Patient here for right shoulder pain after bringing in [employer] tree and lost his balance and landed on the arm which happened yesterday. Patient Tobacco Use Status: Former Tobacco user Allergies amiodarone Adverse Reaction (Unknown, Verified 01/21/24 11:24) hypothyroidism Do you need a note to return to daycare/school/sports/work: No HPI HPI Comments History of Present Illness Details This is an 79-year-old male with a past medical history of atrial fibrillation currently maintained on Coumadin, hypertension and hyperlipidemia presenting for evaluation of right shoulder pain. Patient states he and his were carrying a [place] tree into the house yesterday when he suddenly fell forward trying to hold onto the [employer] tree and landed on his right arm. Patient denies any head injury or loss of consciousness as a result of this fall. Patient is complaining of pain in his right lateral shoulder. Patient denies having any pain in his neck, right clavicle, right forearm or right hand. Patient has not taken any medication for treatment of his discomfort. [facility] Medical History Leg edema Painful arc syndrome Thrombocytopenia Obesity (BMI 30-39.9) Impaired glucose tolerance Peripheral neuropathy Peripheral vascular disease Hypercholesterolemia Essential hypertension Persistent atrial fibrillation Surgical History Status post excision of lipoma No pertinent past surgical history Family History Father Lung cancer Mother Lung cancer Brother Lung cancer Social History Housing: House Alcohol intake: current Alcohol intake frequency: a few times a week Patient Tobacco Use Status: Former Tobacco user Tobacco use type: Cigarette Years Smoked: quit smoking in 1969 e-Cigarette/Vaping Use: Never Used Second Hand Smoke Exposure: No service: No Current occupational status: retired Current occupational exposures/hazards: No Cognitive needs: No Hearing needs: No Vision needs: Yes Review of Systems Const All systems reviewed & are unremarkable except as noted in HPI and below Eyes Reports no additional complaints ENT Reports no additional complaints Card Reports no additional complaints Resp Reports no additional complaints GI Reports no additional complaints Reports no additional complaints Musc Reports no additional complaints, Reports arthralgias (right shoulder) and Reports limited range of motion Skin/Breast Reports system reviewed and no additional complaints, except as documented Neuro Reports no additional complaints Psych Reports no additional complaints Endo Reports no additional complaints Isaiah/Lymph Reports no additional complaints Aller/Immun Reports no additional complaints Physical Exam Vital Signs: Last Vital Signs Pulse 63 01/21/24 11:22 BP 120/80 01/21/24 11:22 Pulse Ox 97 01/21/24 11:22 Oxygen Delivery Method Room Air 01/21/24 11:22 BMI result Body Mass Index 32.0 Const General: cooperative, healthy appearing, comfortable, no acute distress, well developed, alert, awake and Physically active Nutritional Appearance: well nourished Orientation/consciousness: patient oriented x3 Limitations: no limitations Skin Other: No ecchymosis, abrasions or edema noted upon examination of the right shoulder, right anterior chest wall or right upper extremity. Neuro General: patient oriented x3 Extrem Right upper extremity: normal to inspection and shoulder/upper arm (No pain to palpation of the right clavicle or right humerus) Details: tenderness (Pain to palpation right deltoid and pain elicited with abduction of the RUE against resistance); no swelling, no lacerations, no ecchymosis, no crepitus and no unusual warmth; ROM limited, no cyanosis and no edema Psych Appearance: grossly normal Mental Status: mental status grossly normal Insight: Good insight present (Psych) Judgement: Good judgement present (Psych) Assessment & Plan Assessment & Plan (1) Tendinopathy of right shoulder: Comment: There is no bony tenderness to examination of the right shoulder or right clavicle. Patient's examination is consistent with a tendinopathy. Plain film imaging is deferred at this time. Code(s): M67.911 - Unspecified disorder of synovium and tendon, right shoulder Plan: Prednisone 40 mg daily x5 days. Patient to follow up with his primary care provider within 10 days if his symptoms are not improving. Medications: New prednisone 40 mg (2 x 20 mg) PO DAILY 12 tabs 0RF Coding Level of Care Code Est Pt Level 3 (91946) Diagnoses Tendinopathy of right shoulder M67.911 Time Spent (min) 20
[2024-01-21 11:22] VITALS: BP 120/80; PULSE 63; O2SAT 97; BMI 32.0
== END 2024-01-21 12:41 | disposition home or self-care (01) ==
PROVIDERS: PCP Internal Medicine; Visit Provider Physician Assistant
DX: M67.911 Unspecified disorder of synovium and tendon, right shoulder (principal)

== ENCOUNTER 2024-01-23 08:03 | Outpatient (AMB) | payer MEDICARE, SELFPAY ==
[2024-01-23 08:11] LABS: Prothrombin Time Whole Bld POC 26.6 sec (11.1-13.5); ~PT, ~INR - Anti Coag Clinic 2.2 (0.9-1.1)
--- NOTE | 2024-01-23 08:27 | MHC.OFFVISCO ---
Intake Intake Visit Reasons: Anticoagulation Allergies amiodarone Adverse Reaction (Unknown, Verified 01/23/24 08:03) hypothyroidism Medication List - Last Reconciled 01/23/24 by Karen Park RN atorvastatin 40 mg PO BEDTIME digoxin 125 mcg PO DAILY diltiazem HCl CD 240 mg PO DAILY furosemide 20 mg PO DAILY [JUXTA LITE Compression As directed] lisinopril 40 mg PO DAILY metoprolol succinate ER 200 mg PO DAILY prednisone 40 mg (2 x 20 mg) PO DAILY warfarin 5 mg See Protocol PO DAILY Nursing Note INR: 2.2 in therapeutic range- however he decreased his dose yesterday- has been having nose bleeds - enc to keep hydrated, use saline and call md, and enc nasal cease to help stop nose bleeds. He fell few days ago putting up tree and hurt shoulder states he feels his balance is off- saw MD - enc to try physical therapy to help Medications and supplements reviewed- taking prednisone 40 mg dailyx6 days for shoulder- stated he didnt sleep at all- enc to try taking the prednisone 1 tab in am and one in the afternoon No changes in health, diet, medications, or supplements, Denies any signs and symptoms of bleeding or bruising or clotting. Bleeding, bruising, clotting discussed Nutritional guidance given- panchito over the weekends Dose: decrease weekly dose this week and next week 2.5mg x 3 days/ 5mg x 4 days- then resume usual dose 2.5mg x 2 days/ 5mg x 5 days F/U INR: 2 weeks - but to call if any more nose bleeds or any unusual bleeding or bruising Patient verbalizes understanding of instructions given Anti-Coag Initial Assessment Social Hx Patient Tobacco Use Status: Former Tobacco user Tobacco use type: Cigarette alcohol intake: current Alcohol intake frequency: a few times a week Coding Level of Care Code Est Patient Level 1 Diagnoses Current use of anticoagulant therapy Z79.01 Results AMB INR Fingerstick AMB INR Fingerstick 2.2 Last Edit by Karen Park RN on 01/23/24 08:10 manual entry Assessment & Plan Assessment & Plan (1) Current use of anticoagulant therapy: Code(s): Z79.01 - paper cone grader (current) use of 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
== END 2024-01-23 08:36 | disposition home or self-care (01) ==
LOC: HO.ACS 08:03
PROVIDERS: PCP Internal Medicine; Visit Provider Internal Medicine
DX: Z79.01 Long term (current) use of anticoagulants (principal)

== ENCOUNTER → 2024-01-23 08:03 | Outpatient (BNVA) | payer MEDICARE, SELFPAY | PROVIDERS: PCP Internal Medicine; Visit Provider Internal Medicine | DX: I48.19 Other persistent atrial fibrillation (principal); Z79.01 Long term (current) use of anticoagulants; Z51.81 Encounter for therapeutic drug level monitoring | CPT/HCPCS: 85610; 99211 ==

== ENCOUNTER 2024-02-07 08:02 | Outpatient (AMB) | payer MEDICARE, SELFPAY ==
[2024-02-07 08:11] LABS: Prothrombin Time Whole Bld POC 33.7 sec (11.1-13.5); ~PT, ~INR - Anti Coag Clinic 2.8 (0.9-1.1)
--- NOTE | 2024-02-07 08:15 | MHC.OFFVISCO ---
Intake Intake Visit Reasons: Anticoagulation Allergies amiodarone Adverse Reaction (Unknown, Verified 02/07/24 08:03) hypothyroidism Medication List - Last Reconciled 02/07/24 by Merline Stacy RN atorvastatin 40 mg PO BEDTIME digoxin 125 mcg PO DAILY diltiazem HCl CD 240 mg PO DAILY furosemide 20 mg PO DAILY [JUXTA LITE Compression As directed] lisinopril 40 mg PO DAILY metoprolol succinate ER 200 mg PO DAILY prednisone 40 mg (2 x 20 mg) PO DAILY warfarin 5 mg See Protocol PO DAILY Nursing Note PT.IS DONE WITH PREDNISONE. NO CP,SOB,DIET/MED CHANGES,FALLS OR SX OF BLEEDING. RESUME PREV. DOSING AND FOLLOW-UP IN 4 WEEKS. GOOD UNDERSTANDING OF DOSING INSTR.+ Anti-Coag Initial Assessment Social Hx Patient Tobacco Use Status: Former Tobacco user Tobacco use type: Cigarette alcohol intake: current Alcohol intake frequency: a few times a week Coding Level of Care Code Est Patient Level 1 Diagnoses Current use of anticoagulant therapy Z79.01 Results AMB INR Fingerstick AMB INR Fingerstick 2.8 Last Edit by Merline Stacy RN on 02/07/24 08:10 Assessment & Plan Assessment & Plan (1) Current use of anticoagulant therapy: Code(s): Z79.01 - longterm (current) use of 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
== END 2024-02-07 08:16 | disposition home or self-care (01) ==
LOC: HO.ACS 08:02
PROVIDERS: PCP Internal Medicine; Visit Provider Internal Medicine
DX: Z79.01 Long term (current) use of anticoagulants (principal)

== ENCOUNTER → 2024-02-07 08:02 | Outpatient (BNVA) | payer MEDICARE, SELFPAY | PROVIDERS: PCP Internal Medicine; Visit Provider Internal Medicine | DX: I48.19 Other persistent atrial fibrillation (principal); Z79.01 Long term (current) use of anticoagulants; Z51.81 Encounter for therapeutic drug level monitoring | CPT/HCPCS: 85610; 99211 ==

== ENCOUNTER 2024-03-06 07:59 | Outpatient (AMB) | payer MEDICARE, SELFPAY ==
[2024-03-06 08:10] LABS: Prothrombin Time Whole Bld POC 29.7 sec (11.1-13.5); ~PT, ~INR - Anti Coag Clinic 2.5 (0.9-1.1)
--- NOTE | 2024-03-06 08:12 | MHC.OFFVISCO ---
Intake Intake Visit Reasons: Anticoagulation Allergies amiodarone Adverse Reaction (Unknown, Verified 03/06/24 08:00) hypothyroidism Medication List - Last Reconciled 03/06/24 by Precious King RN atorvastatin 40 mg PO BEDTIME digoxin 125 mcg PO DAILY diltiazem HCl CD 240 mg PO DAILY furosemide 20 mg PO DAILY [JUXTA LITE Compression As directed] lisinopril 40 mg PO DAILY metoprolol succinate ER 200 mg PO DAILY prednisone 40 mg (2 x 20 mg) PO DAILY warfarin 5 mg See Protocol PO DAILY Nursing Note INR: 2.5 in therapeutic range of 2-3 Medications and supplements reviewed No changes in health, diet, medications, or supplements, Denies any signs and symptoms of bleeding or bruising or clotting. Bleeding, bruising, clotting discussed Nutritional guidance given Dose: 5mg X 5 days and 2.5mg X 2 days F/U INR: 4 weeks Patient verbalizes understanding of instructions given Anti-Coag Initial Assessment Social Hx Patient Tobacco Use Status: Former Tobacco user Tobacco use type: Cigarette alcohol intake: current Alcohol intake frequency: a few times a week Coding Level of Care Code Est Patient Level 1 Diagnoses Current use of anticoagulant therapy Z79.01 Results AMB INR Fingerstick AMB INR Fingerstick 2.5 Last Edit by Precious King RN on 03/06/24 08:10 interface delay Assessment & Plan Assessment & Plan (1) Current use of anticoagulant therapy: Code(s): Z79.01 - ocean transportation intermediary (current) use of 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
== END 2024-03-06 08:15 | disposition home or self-care (01) ==
LOC: HO.ACS 07:59
PROVIDERS: PCP Internal Medicine; Visit Provider Internal Medicine
DX: Z79.01 Long term (current) use of anticoagulants (principal)

== ENCOUNTER → 2024-03-06 07:59 | Outpatient (BNVA) | payer MEDICARE, SELFPAY | PROVIDERS: PCP Internal Medicine; Visit Provider Internal Medicine | DX: I48.19 Other persistent atrial fibrillation (principal); Z79.01 Long term (current) use of anticoagulants; Z51.81 Encounter for therapeutic drug level monitoring | CPT/HCPCS: 85610; 99211 ==

== ENCOUNTER 2024-04-02 08:30 | Outpatient (AMB) | payer MEDICARE, SELFPAY ==
--- NOTE | 2024-04-02 08:35 | A.OFFPC_ITS ---
Vital Signs 04/02/24 08:36 04/02/24 09:02 Height 6 ft Weight 237 lb 6 oz BMI 32.2 BP 140/66 H 120/68 Blood Pressure Location Lt brachial Lt brachial Position Sitting Pulse 80 Pulse Source Pulse Oximeter Temp 97.3 F Temp Source Skin Pulse Oximetry (%) 97 Oxygen Delivery Method Room Air Intake Visit Reasons: sob Intake Note: Patient is here to follow up on SOB. Assistant Manager Airside Operations Required: No Route Sales Delivery Driver: Not Required per policy Accompanied by: Self / Same As Patient Allergies amiodarone Adverse Reaction (Unknown, Verified 04/02/24 08:36) hypothyroidism Tobacco use date assessed: 04/02/24 Fall risk assessment: 1 Fall in past year Last assessed Fall Risk: 04/02/24 Dental Screening Dental Screen Date: 04/02/24 Did you have a dental visit in the last 12 months?: No Did you have a dental problem in the last 6 months where you did not have access to dental care?: No Was dental information given to patient?: No HPI sob HPI Details The patient is an 79-year-old male presenting with atrial fibrillation, venous insufficiency, and shoulder pain. He has a history of hypertension, hypercholesterolemia, and obstructive sleep apnea. The atrial fibrillation is being managed with metoprolol, digoxin, and anticoagulation. An echocardiogram from November 2023 showed left ventricular ejection fraction at 65%, indicating preserved cardiac function. The patient experienced anemia with a hemoglobin level of 12.5 g/dL; renal, hepatic, and electrolyte profiles were within normal limits in recent blood tests. The patient has had chronic issues with venous insufficiency, marked by swelling in the lower extremities exacerbated by gravity. He has experienced episodic shoulder pain since a fall on his shoulder, resulting in a suspected rotator cuff injury; however, he previously underwent an X-ray examination. He reports significant swelling and discomfort in his feet, affecting his daily life. The swelling is associated with venous insufficiency, and is aggravated by prolonged standing and walking. No new imaging was performed recently, and the patient was advised on using compression therapy as a non-invasive measure to mitigate symptoms. [facility] Medical History Leg edema Painful arc syndrome Thrombocytopenia Obesity (BMI 30-39.9) Impaired glucose tolerance Peripheral neuropathy Peripheral vascular disease Hypercholesterolemia Essential hypertension Persistent atrial fibrillation Surgical History Status post excision of lipoma No pertinent past surgical history Family History Father Lung cancer Mother Lung cancer Brother Lung cancer Social History Housing: House Alcohol intake: current Alcohol intake frequency: a few times a week Patient Tobacco Use Status: Former Tobacco user Tobacco use type: Cigarette Years Smoked: quit smoking in 1969 e-Cigarette/Vaping Use: Never Used Second Hand Smoke Exposure: Yes service: No Current occupational status: retired Current occupational exposures/hazards: No Cognitive needs: No Hearing needs: No Vision needs: Yes Questionnaire PHQ-9 Over the last 2 weeks, how often have you been bothered by any of the following problems? 1. Little interest or pleasure in doing things: not at all 2. Feeling down, depressed, or hopeless: not at all 3. Trouble falling or staying asleep, or sleeping too much: not at all 4. Feeling tired or having little energy: not at all 5. Poor appetite or overeating: not at all 6. Feeling bad about yourself - or that you are a failure or have let yourself or your family down: not at all 7. Trouble concentrating on things, such as reading the newspaper or watching television: not at all 8. Moving or speaking so slowly that other people could have noticed. Or the opposite - being so fidgety or restless that you have been moving around a lot more than usual: not at all 9. Thoughts that you would be better off or of hurting yourself in some way: not at all Total score: 0 Depression Screening Interpretation: Negative Depression Screening Done: Yes Source: Developed by Drs. Bryant Mullins, Betzaida Bell, Manuel Hernandez and colleagues, with an educational brandi from [employer]. Thrive Questionnaire Date Thrive assessed: 04/02/24 I am a: Patient What is your living situation today?: I have a steady place to live Within the past 12 months, did the food you bought not last and you didn't have the money to get more?: Never true Within the past 12 months, did you worry whether your food would run out before you got money to buy more?: Never true Do you have trouble paying for medicines?: No Do you have trouble getting transportation to medical appointments?: No Do you have trouble paying your heating and electricity bill?: No Do you have trouble taking care of your child, family member or friend?: No Do you have trouble with day-to-day activities such as bathing, preparing meals, shopping, managing finances, etc.?: No Are you currently unemployed and looking for a job?: No Are you interested in more education?: No Please select the resources that you would like help with: None Currently or been in a relationship where the following occur: No concerns reported THRIVE Score: 0 AUDIT C Alcohol Use Questionnaire (AUDIT-C) 1. How often do you have a drink containing alcohol?: 4 or more times a week 2. How many drinks containing alcohol do you have on a typical day when you are drinking?: 5 or 6 Total Score: 6 SHABNAM-7 AMB Questionnaire SHABNAM-7 Date SHABNAM - 7 assessed: 04/02/24 Feeling nervous, anxious, or on edge: 0 = Not at all Not being able to stop or control worryin = Not at all Worrying too much about different things: 0 = Not at all Trouble relaxin = Not at all Being so restless that it is hard to sit still: 0 = Not at all Becoming easily annoyed or irritable: 0 = Not at all Feeling afraid as if something awful might happen: 0 = Not at all Total SHABNAM-7 score (0-4 normal; 5-9 mild; 10-14 moderate; 15-21 severe): 0 Source: Developed by Drs. Bryant Mullins, Betzaida Bell, Manuel Hernandez and colleagues, with an educational brandi from [employer]. Physical exam (Primary Care) Vital Signs: Last Vital Signs Temp 97.3 F 04/02/24 08:36 Pulse 80 04/02/24 08:36 BP 140/66 H 04/02/24 08:36 Pulse Ox 97 04/02/24 08:36 Oxygen Delivery Method Room Air 04/02/24 08:36 BMI result Body Mass Index 32.2 Tobacco/Smoking Status: Tobacco use Status Tobacco use date assessed 04/02/24 04/02/24 08:42 Patient Tobacco Use Status Former Tobacco user 04/02/24 08:42 Tobacco use type Cigarette 04/02/24 08:42 e-Cigarette/Vaping Use Never Used 04/02/24 08:42 PHQ-9: PHQ-9 Score PHQ-9: Total score 0 04/02/24 08:42 Depression Screening Interpretation: Negative Thrive Assessment: Date of Thrive Assessment Date Thrive assessed 04/02/24 04/02/24 08:42 Currently or been in a relationship where the following occur: No concerns reported Const General: alert; No acute distress Eyes Conjunctivae: conjunctivae normal Resp Auscultation: clear to auscultation bilaterally Cardio Rate: regular rate Rhythm: regular rhythm GI Inspection: Yes normal to inspection Extrem Other: Bilateral lower extremity swelling 2+ with hyperpigmented rash with thickenedleathery skin n vascular dermatitis stasis General: Yes edema Coding Level of Care Code Est Pt Level 4 (99834) Complex EM visit Add On G2211 Diagnoses Essential hypertension I10 Hypercholesterolemia E78.00 Obesity (BMI 30-39.9) E66.9 Persistent atrial fibrillation I48.19 Peripheral vascular disease I73.9 Nail dystrophy L60.3 Constipation K59.00 Assessment & Plan Assessment & Plan (1) Essential hypertension: Code(s): I10 - Essential (primary) hypertension Category: Medical Plan: Continue with blood pressure medication. Decrease salt intake and exercise continuing with diltiazem 240 mg once a day lisinopril 40 mg once a day metoprolol 200 mg once a day (2) Hypercholesterolemia: Code(s): E78.00 - Pure hypercholesterolemia, unspecified Category: Medical Plan: Avoid fried foods, chicken skin, eggs, butter margarine, pastries and meat. Be it pork or beef they have a lot of cholesterol LDL goal of less than 130 and triglyceride of less than 150 on atorvastatin 40 mg once a day (3) Obesity (BMI 30-39.9): Code(s): E66.9 - Obesity, unspecified Category: Medical Plan: Noted weight to be stable (4) Persistent atrial fibrillation: Code(s): I48.19 - Other persistent atrial fibrillation Category: Medical Plan: Continue with anticoagulation and on diltiazem and digoxin (5) Peripheral vascular disease: Code(s): I73.9 - Peripheral vascular disease, unspecified Category: Medical Plan: When sitting down elevate the legs, exercise, and support stockings (6) Nail dystrophy: Code(s): L60.3 - Nail dystrophy Category: Medical (7) Constipation: Code(s): K59.00 - Constipation, unspecified Category: Medical Plan - Continue anticoagulation therapy for atrial fibrillation, with ongoing monitoring of clotting status and pertinent blood work. - Maintain current therapy with metoprolol and digoxin for rate control in atrial fibrillation. - Patient to continue current therapy with atorvastatin and lisinopril for control of hypercholesterolemia and hypertension, respectively. - Recommend the use of graduated compression stockings to manage venous insufficiency and reduce lower extremity swelling. - Referral to a vascular surgeon is advised for further evaluation and management of venous disease. - Recommend orthopedic consultation for evaluation of shoulder pain and suspected rotator cuff injury, with consideration for imaging if shoulder function worsens. - Encourage continued use of home blood pressure monitoring and lifestyle modifications to aid in the management of hypertension and overall cardiovascular health. Orders: Orders Comprehensive Met. Panel Today I48.19 - Other persistent atrial fibrillation Thyroid Stimulating Hormone Today I48.19 - Other persistent atrial fibrillation Lipid Panel Today E78.00 - Pure hypercholesterolemia, unspecified, I48.19 - Other persistent atrial fibrillation Complete Blood Count Auto Diff Today I48.19 - Other persistent atrial fibrillation Free T4 (Free Thyroxine) Today I48.19 - Other persistent atrial fibrillation Vitamin B12 and Folate Today I48.19 - Other persistent atrial fibrillation B Type Natriuretic Peptide Today I48.19 - Other persistent atrial fibrillation Magnesium Today I48.19 - Other persistent atrial fibrillation Referrals Podiatry Referral L60.3 - Nail dystrophy Medications: New psyllium husk (Fiber (psyllium husk)) 1.04 grams (2 x 0.52 gram) PO DAILY 60 caps 0RF K59.00 - Constipation, unspecified Discontinued prednisone Discontinued Reason: Duplicate 40 mg (2 x 20 mg) PO DAILY 12 tabs 0RF
[2024-04-02 08:36] VITALS: BP 140/66; PULSE 80; TEMP 36.3; O2SAT 97; BMI 32.2
[2024-04-02 09:02] VITALS: BP 120/68
== END 2024-04-02 09:13 | disposition home or self-care (01) ==
PROVIDERS: PCP Internal Medicine; Visit Provider Internal Medicine
DX: I10 Essential (primary) hypertension (principal); I48.19 Other persistent atrial fibrillation; I73.9 Peripheral vascular disease, unspecified; E78.00 Pure hypercholesterolemia, unspecified; Z68.32 Body mass index [BMI] 32.0-32.9, adult; E66.9 Obesity, unspecified; L60.3 Nail dystrophy; K59.00 Constipation, unspecified

== ENCOUNTER → 2024-04-02 08:30 | Outpatient (BNVA) | payer MEDICARE, SELFPAY | PROVIDERS: PCP Internal Medicine; Visit Provider Internal Medicine | DX: I10 Essential (primary) hypertension (principal); E78.00 Pure hypercholesterolemia, unspecified; E66.9 Obesity, unspecified; I48.19 Other persistent atrial fibrillation; I73.9 Peripheral vascular disease, unspecified; L60.3 Nail dystrophy; K59.00 Constipation, unspecified | CPT/HCPCS: 99212 ==

== ENCOUNTER 2024-04-10 07:59 | Outpatient (AMB) | payer MEDICARE, SELFPAY ==
--- NOTE | 2024-04-10 08:13 | MHC.OFFVISCO ---
Intake Intake Visit Reasons: Anticoagulation Allergies amiodarone Adverse Reaction (Unknown, Verified 04/10/24 08:01) hypothyroidism Medication List - Last Reconciled 04/10/24 by Precious King RN atorvastatin 40 mg PO BEDTIME digoxin 125 mcg PO DAILY diltiazem HCl CD 240 mg PO DAILY furosemide 20 mg PO DAILY [JUXTA LITE Compression As directed] lisinopril 40 mg PO DAILY metoprolol succinate ER 200 mg PO DAILY psyllium husk (Fiber (psyllium husk)) 1.04 grams (2 x 0.52 gram) PO DAILY warfarin 5 mg See Protocol PO DAILY Nursing Note INR: 2.3 in therapeutic range of 2-3 Medications and supplements reviewed No changes in health, diet, medications, or supplements, Denies any signs and symptoms of bleeding or bruising or clotting. Bleeding, bruising, clotting discussed Nutritional guidance given Dose: 5mg X 5 days and 2.5mg X 2 days F/U INR: 4 weeks Patient verbalizes understanding of instructions given Anti-Coag Initial Assessment Social Hx Patient Tobacco Use Status: Former Tobacco user Tobacco use type: Cigarette alcohol intake: current Alcohol intake frequency: a few times a week Questionnaires HAS-BLED Does the patient had uncontrolled Hypertension?: No Does the patient have renal disease?: No Does the patient have liver disease?: No Does the patient have a history of stroke?: No Has the patient had major bleeding or predisposition to bleeding?: No Does the patient have labile INRs?: No Is the patient over 65 years of age?: Yes Is the patient on medications that gives them a predisposition to bleeding?: Yes Does the patient use alcohol?: Yes HAS-BLED Score: 3 CHADSVASC Age: 75 or over Gender: Male Does the patient have a history of CHF?: No Does the patient have a history of Hypertension?: Yes Does the patient have a history of Stroke/TIA/Thromboembolism?: No Does the patient have a history of Vascular Disease (prior CT, PAD or aortic plaque)?: No Does the patient have a history of Diabetes?: No CHADS VACS Score: 3 Pinky Prediction Score Rsk VTE Active Cancer: No Previous VTE, excluding superficial vein thrombosis: No Reduced mobility: No Already known Thrombophilic Condition: No With-in last month Trauma and/or Surgery: No Elderly 70 year or older: No Heart and/or Respiratory Failure: No Acute Myocardial infarction and/or Ischemic Stroke: No Acute Infection and/or Rheumatologic Disorder: No Obesity (BMI 30 or greater): Yes Ongoing Hormonal Treatment: No Score: 1 Pinky Score less than 4; Low Risk of VTE Pinky Score 4 or greater; High Risk of VTE Coding Level of Care Code Est Patient Level 1 Diagnoses Current use of anticoagulant therapy Z79.01 Results AMB INR Fingerstick AMB INR Fingerstick 2.3 Last Edit by Precious King RN on 04/10/24 08:10 interface delay Assessment & Plan Assessment & Plan (1) Current use of anticoagulant therapy: Code(s): Z79.01 - detention (current) use of 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
[2024-04-10 08:15] LABS: Prothrombin Time Whole Bld POC 27.7 sec (11.1-13.5); ~PT, ~INR - Anti Coag Clinic 2.3 (0.9-1.1)
== END 2024-04-10 08:20 | disposition home or self-care (01) ==
LOC: HO.ACS 07:59
PROVIDERS: PCP Internal Medicine; Visit Provider Internal Medicine
DX: Z79.01 Long term (current) use of anticoagulants (principal)

== ENCOUNTER → 2024-04-10 07:59 | Outpatient (BNVA) | payer MEDICARE, SELFPAY | PROVIDERS: PCP Internal Medicine; Visit Provider Internal Medicine | DX: I48.19 Other persistent atrial fibrillation (principal); Z79.01 Long term (current) use of anticoagulants; Z51.81 Encounter for therapeutic drug level monitoring | CPT/HCPCS: 85610; 99211 ==

== ENCOUNTER 2024-05-01 08:03 | Outpatient (AMB) | payer MEDICARE, SELFPAY ==
--- OUTSIDE RECORDS SUMMARY | 2024-05-01 08:05 | XMS_ITS | Clinical Summary ---
Author Organization 175 [facility] Address [address] [place] [address] Phone Care Team Providers Care Biological Photographer Name Role Phone Carter Garg MD Primary Care Provider Social History Tobacco Use Types Packs/Day Years Used Date Smoking Tobacco: Never Assessed Sex and Gender Information Value Date Recorded Sex Assigned at Not on file Legal Sex Male 4:09 AM EST Gender Identity Not on file Sexual Orientation Not on file Plan of Treatment Upcoming Encounters Date Type Department Care Team ([facility] st Contact Info) Description 06/10/2024 8:15 AM EDT Consult Orthopedic Surgery - [place] [address] [phone] Nelson Floyd, DPM [address] [address] Health Maintenance Due Date Last Done Comments DTaP,Tdap,and Td Vaccines (1 - Tdap) 1964 Pneumococcal Vaccine: 50+ Ye ars (1 of 1 - PCV) 1993 Zoster Vaccines (1 of 2) 1993 RSV Immunization Patients 60 + Years Old (1 - 1-dose 75+ series) 2018 Cholesterol Screening (Lipid Panel) 01/21/2022 Depression Screening 01/21/2022 Falls Risk Assessment 01/21/2022 Medicare Annual Wellness Visit 01/21/2022 Social Influencers of Health Screening 01/21/2022 COVID-19 Vaccine ( - 2023-2 5 season) 2023 Influenza Vaccine (#1) 2023 HIB Vaccines Aged Out No longer eligi ble based on patient's age to complete this topic HPV Vaccines Aged Out No longer eligi ble based on patient's age to complete this topic Hepatitis A Vaccines Aged Out No long er eligible based on patient's age to complete this topic Hepatitis B Vaccines Aged Out No long er eligible based on patient's age to complete this topic IPV Vaccines Aged Out No longer eligi ble based on patient's age to complete this topic MMR Vaccines Aged Out No longer eligi ble based on patient's age to complete this topic Meningococcal ACWY Vaccine Aged Out N o longer eligible based on patient's age to complete this topic Meningococcal B Vacine Aged Out No lo nger eligible based on patient's age to complete this topic RSV Immunization Patients Un melanie 20 months Aged Out No longer eligible b ased on patient's age to complete this topic Varicella Vaccines Aged Out No longer eligible based on patient's age to complete this topic Insurance [employer] Care Teams Biological Photographer Relationship Specialty Start Date End Date Carter Garg MD [address] [place] [address] [address] [facility] [place] [address] PCP - General Internal Medicine 04/20/24
[2024-05-01 08:11] LABS: Prothrombin Time Whole Bld POC 39.3 sec (11.1-13.5); ~PT, ~INR - Anti Coag Clinic 3.3 (0.9-1.1)
--- NOTE | 2024-05-01 08:14 | MHC.OFFVISCO ---
Intake Intake Visit Reasons: Anticoagulation Allergies amiodarone Adverse Reaction (Unknown, Verified 05/01/24 08:04) hypothyroidism Medication List - Last Reconciled 05/01/24 by Precious King RN atorvastatin 40 mg PO BEDTIME digoxin 125 mcg PO DAILY diltiazem HCl CD 240 mg PO DAILY furosemide 20 mg PO DAILY [JUXTA LITE Compression As directed] lisinopril 40 mg PO DAILY metoprolol succinate ER 200 mg PO DAILY psyllium husk (Fiber (psyllium husk)) 1.04 grams (2 x 0.52 gram) PO DAILY warfarin 5 mg See Protocol PO DAILY Nursing Note INR: 3.3?out of therapeutic range of 2-3 Medications and supplements reviewed Patient status: no changes Medications or supplements: no changes Diet: usual diet for pt Denies any signs and symptoms of bleeding or clotting or unusual bruising Bleeding, bruising, clotting discussed Nutritional guidance given: to have a serving of greens. Pt states he will have spinach today. Dose: 5mg X 5 days and 2.5mg X 2 days (Sat & ) F/U INR Date : 4 weeks? Patient verbalizing understanding of instructions given. 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
== END 2024-05-01 08:18 | disposition home or self-care (01) ==
LOC: HO.ACS 08:03
PROVIDERS: PCP Internal Medicine; Visit Provider Internal Medicine
DX: Z79.01 Long term (current) use of anticoagulants (principal)

== ENCOUNTER → 2024-05-01 08:03 | Outpatient (BNVA) | payer MEDICARE, SELFPAY | PROVIDERS: PCP Internal Medicine; Visit Provider Internal Medicine | DX: I48.19 Other persistent atrial fibrillation (principal); Z79.01 Long term (current) use of anticoagulants; Z51.81 Encounter for therapeutic drug level monitoring | CPT/HCPCS: 85610; 99211 ==

== ENCOUNTER 2024-05-29 08:01 | Outpatient (AMB) | payer MEDICARE, SELFPAY ==
--- OUTSIDE RECORDS SUMMARY | 2024-05-29 08:04 | XMS_ITS | Clinical Summary ---
Author Organization 175 [facility] Address [address] [place] [address] Phone Care Team Providers Care Global Commodity Manager Name Role Phone Carter Garg MD Primary Care Provider [phone] Social History Tobacco Use Types Packs/Day Years Used Date Smoking Tobacco: Never Assessed Sex and Gender Information Value Date Recorded Sex Assigned at Not on file Legal Sex Male 4:09 AM EST Gender Identity Not on file Sexual Orientation Not on file Plan of Treatment Upcoming Encounters Date Type Department Care Team ([facility] st Contact Info) Description 06/10/2024 8:15 AM EDT Consult Orthopedic Surgery [facility] [address] [phone] Nelson Floyd, DPM [address] [address] Health Maintenance Due Date Last Done Comments DTaP,Tdap,and Td Vaccines (1 - Tdap) 1964 Pneumococcal Vaccine: 50+ Ye ars (1 of 1 - PCV) 1993 Zoster Vaccines (1 of 2) 1993 RSV Immunization Adult Patie nts (1 - 1-dose 75+ series) 2018 Cholesterol Screening (Lipid Panel) 01/21/2022 Depression Screening 01/21/2022 Falls Risk Assessment 01/21/2022 Medicare Annual Wellness Visit 01/21/2022 Social Influencers of Health Screening 01/21/2022 COVID-19 Vaccine ( - 2023-2 5 season) 2023 Influenza Vaccine (Season Ended) 2024 HIB Vaccines Aged Out No longer eligi [...] age to complete this topic Meningococcal B Vaccine Aged Out No l onger eligible based on patient's age to complete this topic RSV Immunization Patients Un melanie 20 months Aged Out No longer eligible b ased on patient's age to complete this topic Varicella Vaccines Aged Out No longer eligible based on patient's age to complete this topic Insurance [employer] Care Teams Global Commodity Manager Relationship Specialty Start Date End Date Carter Garg MD [address] [place] [address] [address] [facility] [place] [address] PCP - General Internal Medicine 04/20/24
[2024-05-29 08:08] LABS: Prothrombin Time Whole Bld POC 33.7 sec (11.1-13.5); ~PT, ~INR - Anti Coag Clinic 2.8 (0.9-1.1)
--- NOTE | 2024-05-29 08:13 | MHC.OFFVISCO ---
Intake Intake Visit Reasons: Anticoagulation Allergies amiodarone Adverse Reaction (Unknown, Verified 05/01/24 08:04) hypothyroidism Nursing Note INR: 2.8 in therapeutic range of 2-3 Medications and supplements reviewed No changes in health, diet, medications, or supplements, Denies any signs and symptoms of bleeding or bruising or clotting. 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
== END 2024-05-29 08:14 | disposition home or self-care (01) ==
LOC: HO.ACS 08:01
PROVIDERS: PCP Internal Medicine; Visit Provider Internal Medicine Medical Oncology
DX: Z79.01 Long term (current) use of anticoagulants (principal)

== ENCOUNTER → 2024-05-29 08:01 | Outpatient (BNVA) | payer MEDICARE, SELFPAY | PROVIDERS: PCP Internal Medicine; Visit Provider Internal Medicine Medical Oncology | DX: I48.19 Other persistent atrial fibrillation (principal); Z79.01 Long term (current) use of anticoagulants; Z51.81 Encounter for therapeutic drug level monitoring | CPT/HCPCS: 85610; 99211 ==

== ENCOUNTER → 2024-06-26 08:00 | Outpatient (BNVA) | payer MEDICARE, SELFPAY | PROVIDERS: PCP Internal Medicine; Visit Provider Internal Medicine Medical Oncology | DX: I48.19 Other persistent atrial fibrillation (principal); Z79.01 Long term (current) use of anticoagulants; Z51.81 Encounter for therapeutic drug level monitoring | CPT/HCPCS: 85610; 99211 ==

== ENCOUNTER 2024-07-03 08:32 | Outpatient (AMB) | payer MEDICARE, SELFPAY ==
--- NOTE | 2024-07-03 08:33 | A.OFFPC_ITS ---
Vital Signs 07/03/24 08:35 Height 6 ft Weight 237 lb BMI 32.1 BP 128/62 Blood Pressure Location Lt brachial Position Sitting Pulse 81 Pulse Source Pulse Oximeter Pulse Oximetry (%) 96 Oxygen Delivery Method Room Air Intake Visit Reasons: PAF - see comments Allergies amiodarone Adverse Reaction (Unknown, Verified 07/03/24 08:35) hypothyroidism Medication List - Last Reconciled 07/03/24 by Carter Garg MD atorvastatin 40 mg PO BEDTIME digoxin 125 mcg PO DAILY diltiazem HCl CD 240 mg PO DAILY furosemide 20 mg PO DAILY [JUXTA LITE Compression As directed] lisinopril 40 mg PO DAILY metoprolol succinate ER 200 mg PO DAILY psyllium husk (Fiber (psyllium husk)) 1.04 grams (2 x 0.52 gram) PO DAILY warfarin 5 mg See Protocol PO DAILY Tobacco use date assessed: 04/02/24 Fall risk assessment: No Falls in past year Last assessed Fall Risk: 07/03/24 Dental Screening Dental Screen Date: 04/02/24 [facility] Medical History Leg edema Painful arc syndrome Thrombocytopenia Obesity (BMI 30-39.9) Impaired glucose tolerance Peripheral neuropathy Peripheral vascular disease Hypercholesterolemia Essential hypertension Persistent atrial fibrillation Surgical History Status post excision of lipoma No pertinent past surgical history Family History Father Lung cancer Mother Lung cancer Brother Lung cancer Social History Housing: House Alcohol intake: current Alcohol intake frequency: a few times a week Patient Tobacco Use Status: Former Tobacco user Tobacco use type: Cigarette Years Smoked: quit smoking in 1970 e-Cigarette/Vaping Use: Never Used Second Hand Smoke Exposure: Yes service: No Current occupational status: retired Current occupational exposures/hazards: No Cognitive needs: No Hearing needs: No Vision needs: Yes Questionnaire Thrive Questionnaire Date Thrive assessed: 04/02/24 SHABNAM-7 AMB Questionnaire SHABNAM-7 Date SHABNAM - 7 assessed: 04/02/24 Source: Developed by Drs. Bryant Mullins, Betzaida Manuel Pete and colleagues, with an educational brandi from [employer]. Physical exam (Primary Care) Vital Signs: Last Vital Signs Pulse 81 07/03/24 08:35 BP 128/62 07/03/24 08:35 Pulse Ox 96 07/03/24 08:35 Oxygen Delivery Method Room Air 07/03/24 08:35 BMI result Body Mass Index 32.1 Tobacco/Smoking Status: Tobacco use Status Tobacco use date assessed 04/02/24 07/03/24 08:34 Patient Tobacco Use Status Former Tobacco user 07/03/24 08:34 Tobacco use type Cigarette 07/03/24 08:34 e-Cigarette/Vaping Use Never Used 07/03/24 08:34 Thrive Assessment: Date of Thrive Assessment Date Thrive assessed 04/02/24 07/03/24 08:34 Const General: alert; No acute distress Eyes Conjunctivae: conjunctivae normal Resp Auscultation: clear to auscultation bilaterally Cardio Rate: regular rate Rhythm: regular rhythm GI Inspection: Yes normal to inspection Skin Other: Reddish-brown discoloration and pebbly skin bilateral lower extremity more prominent than the left leg distributed on the legs Extrem Other: Bilateral lower extremity swelling with the whole leg Reddish-brown discoloration and pebbly skin bilateral lower extremity more prominent than the left leg distributed on the legs 2+ swelling Coding Level of Care Code Est Pt Level 4 (27889) Complex EM visit Add On G2211 Diagnoses Persistent atrial fibrillation I48.19 Obesity (BMI 30-39.9) E66.9 Impaired glucose tolerance R73.02 Hypercholesterolemia E78.00 Essential hypertension I10 Venous stasis dermatitis I87.2 Assessment & Plan Assessment & Plan (1) Persistent atrial fibrillation: Code(s): I48.19 - Other persistent atrial fibrillation Category: Medical Plan: Continue with anticoagulation. Advised to get blood work done (2) Obesity (BMI 30-39.9): Code(s): E66.9 - Obesity, unspecified Category: Medical Plan: Diet and exercise (3) Impaired glucose tolerance: Code(s): R73.02 - Impaired glucose tolerance (oral) Category: Medical Plan: Decrease the amount of carbohydrate intake, pasta, bread, rice and potatoes are all sugar and that is aside from all the sweet stuff, remember that fruits are good but they are Sweet also. (4) Hypercholesterolemia: Code(s): E78.00 - Pure hypercholesterolemia, unspecified Category: Medical Plan: Avoid fried foods, chicken skin, eggs, butter margarine, pastries and meat. Be it pork or beef they have a lot of cholesterol LDL goal of less than 100 and triglyceride of less than 150. On atorvastatin 40 mg once a day (5) Essential hypertension: Code(s): I10 - Essential (primary) hypertension Category: Medical Plan: Continue with blood pressure medication. Decrease salt intake and exercise continuing with diltiazem 240 mg once a day lisinopril 40 mg once a day metoprolol 200 mg once a day (6) Venous stasis dermatitis: Code(s): I87.2 - Venous insufficiency (chronic) (peripheral) Category: Medical Plan: Patient has seen Dermatology in has recommended keratotic lytics with moisturizing lotion. Plan History of Present Illness The patient is an 79-year-old male presenting for a follow-up for chronic conditions management and specifically to address his venous stasis dermatitis. His medical history includes atrial fibrillation managed with Coumadin, hypertension, hypercholesterolemia, venous stasis dermatitis, and obstructive sleep apnea. Foot pain, seen by an orthopedist in May 2024, has also been a concern and he is advised to use supportive insoles. Dr. Zaldivar from podiatry recommended this as part of managing his foot pain. Treatment for venous stasis dermatitis includes moisturizing post-shower, avoidance of steroid creams, and the application of keratolytics as per dermatology recommendations. Recent blood work indicated a history of anemia and thrombocytopenia from November 2015. The patient's hypertension is managed with diltiazem, lisinopril, and metoprolol, with cholesterol managed via atorvastatin. He implements Benefiber for controlling constipation, which has been effective. He was guided to elevate legs, use compression stockings daily, and received direction on monitoring his blood sugar with a fasting blood test scheduled. Despite stable weight, blood pressure was noted as an area for vigilance, and he acknowledges significantly reduced walking ability, now halved due to leg issues. Health Maintenance - Continued anticoagulation therapy with Coumadin for atrial fibrillation. - Hypertension management with diltiazem, lisinopril, and metoprolol. - Cholesterol control with atorvastatin, with focus on LDL target <100 and triglycerides <150. - Dietary and exercise modifications recommended. - Regular use of moisturizing agents and keratolytics for dermatological management. - Recommendations to elevate legs and use of compression stockings. - Scheduled fasting blood work to assess sugar levels and kidney function. Social History - Reports daily struggles with leg discomfort limiting his previous walking routine from 5 miles to half a mile. - Adheres to dietary modifications, avoiding high sodium foods such as cabasa. - Reports usage of Benefiber for alimentary health improvement. Review of Systems - Cardiovascular: Reports use of antihypertensive medications and continued anticoagulation therapy. - Dermatological: Reports issues with leg skin sensitivity, adherence to moisturizing protocols, and use of keratolytics. - Musculoskeletal: Reports reduction in walking activity due to leg discomfort. - Gastrointestinal: Reports prior constipation resolved with Benefiber. - General: Denies chest pains or heaviness. Physical Exam Results - Labs: Blood work noted from November 2015 with anemia and thrombocytopenia; normal electrolytes, good renal function, normal liver function, BMP 155, cholesterol with LDL 78. Plan Continuing anticoagulation is crucial for atrial fibrillation, maintaining therapeutic INR levels. Hypertension control will continue with current antihypertensive medications, with a goal to achieve optimal blood pressure numbers. Atorvastatin is prescribed for lipid management, targeting LDL and triglycerides within desirable ranges. Emphasis is placed on dietary adjustments and sustained physical exercises like leg elevation and wearing compression stockings for venous stasis dermatitis management. Exacerbations of the dermatitis or any significant changes in skin condition must be reported promptly for evaluation. Blood work is scheduled for comprehensive metabolic assessment and fasting sugar level checks, with results to guide adjustments in diabetes or renal management if indicated. Patient was informed and verbally consented to the use of an ambient scribe for clinic note documentation during this visit. Discussion Notes During the visit, I discussed with the patient the ongoing necessity of anticoagulation therapy and management of his hypertension and hyperlipidemia, emphasizing adherence to prescribed medications and dietary modifications. He expressed concern over the limitations in his walking ability due to leg issues, and we strategized methods to include suitable physical activities within his current capabilities, stressing the need for compression therapy and leg elevation for the venous stasis dermatitis. A comprehensive review of his blood work from November 2015 showcased anemia and thrombocytopenia, hence the necessity of a follow-up blood test was communicated, particularly emphasizing fasting preparation to assess glucose and renal metrics closely tied to his diuretic therapy. I addressed the patient's concerns about leg tears due to sensitive skin and prevention strategies, including regular application of moisturizing agents and avoiding trauma. I acknowledged his vaccination status as up-to-date and agreed to revisit his health maintenance plan post-blood work to review possible modifications in therapy as needed. Patient Instructions - Continue taking prescribed medications: Coumadin for atrial fibrillation, and your antihypertensives and statin as advised. - Apply moisturizing lotions after shower, and use compression stockings daily. - Keep legs elevated when sitting or resting to help with swelling. - Stick to a low sodium diet, avoid processed foods, and increase fresh produce intake. - Schedule blood work and ensure fasting beforehand as directed. - Increase physical activity within comfort levels and ensure use of supportive insoles. - Monitor for any skin breaks or tears, and consult promptly if they occur. - Follow up for all test results and management of ongoing conditions as directed. Orders: Orders Hemoglobin A1c Today I48.19 - Other persistent atrial fibrillation
[2024-07-03 08:35] VITALS: BP 128/62; PULSE 81; O2SAT 96; BMI 32.1
--- OUTSIDE RECORDS SUMMARY | 2024-07-03 08:46 | XMS_ITS | Clinical Summary ---
Author Organization 175 [facility] Address 175 [place] [address] Phone Care Team Providers Care Dimension Specification Inspector Name Role Phone Carter Garg MD Primary Care Provider [phone] Allergies No known active allergies Encounters Date Type Department Care Team Description 06/10/2024 8:15 AM EDT Consult Orthopedic Surgery [place] [address] [address] Nelson Floyd DPM Dermatophytosis of nail (Primary Dx); Nail dystrophy; Pain in toe of right foot; Pain in toe of left foot; Peripheral venous insufficiency; Bilateral femoral artery stenosis (CMS/HCC V24); Corns and callosities; Acquired hallux valgus of left foot; Acquired hallux valgus of right foot; Primary osteoarthritis of both feet from Last 3 Months Social History Tobacco Use Types Packs/Day Years Used Date Smoking Tobacco: Never Assessed Sex and Gender Information Value Date Recorded Sex Assigned at Not on file Legal Sex Male 4:09 AM EST Gender Identity Not on file Sexual Orientation Not on file Last Filed Vital Signs Vital Sign Reading Time Taken Comments Blood Pressure - - Pulse - - Temperature - - Respiratory Rate - - Oxygen Saturation - - Inhaled Oxygen Concentration - - Weight 109 kg (240 lb) 06/10/2024 8:21 AM EDT Height 180.3 cm (5' 11 ) 06/10/2024 8:21 AM EDT Body Mass Index 33.47 06/10/2024 8:21 AM EDT Plan of Treatment Upcoming Encounters Date Type Department Care Team ([facility] st Contact Info) Description 09/09/2024 8:45 AM EDT Office Visit Orthopedic Surgery [facility] [address] [address] Nelson Floyd DPM [address] [address] Health Maintenance Due Date Last Done Comments RSV Immunization Adult Patients (1 - 1-dose 75+ series) 2018 Cholesterol Screening (Lipid Panel) 01/21/2022 Depression Screening 01/21/2022 Falls Risk Assessment 01/21/2022 Medicare Annual Wellness Visit 01/21/2022 Social Influencers of Health Screening 01/21/2022 COVID-19 Vaccine ( season) 2024 12/12/2023, 01/04/2023, 12/30/2021, Additional history exists DTaP,Tdap,and Td Vaccines (2 - Td or Tdap) 01/31/2026 02/01/2016 Zoster Vaccines Completed 08/15/2018, 05/15/2018 Pneumococcal Vaccine: 50+ Years Completed 01/14/2019, 06/07/2015 Influenza Vaccine Completed 12/06/2023, , 12/28/2021, Additional history exists HIB Vaccines Aged Out No longer eligi [...] to complete this topic RSV Immunization Patients Under 20 months Aged Out No longer eligible based on patient's age to complete this topic Varicella Vaccines Aged Out No longer eligible based on patient's age to complete this topic Insurance [employer] Care Teams Dimension Specification Inspector Relationship Specialty Start Date End Date Carter Garg MD 2 [facility] [facility] [place] [address] PCP - General Internal Medicine 04/20/24
== END 2024-07-03 09:09 | disposition home or self-care (01) ==
PROVIDERS: PCP Internal Medicine; Visit Provider Internal Medicine
DX: I48.19 Other persistent atrial fibrillation (principal); E66.9 Obesity, unspecified; Z68.32 Body mass index [BMI] 32.0-32.9, adult; R73.02 Impaired glucose tolerance (oral); E78.00 Pure hypercholesterolemia, unspecified; I10 Essential (primary) hypertension; I87.2 Venous insufficiency (chronic) (peripheral)

== ENCOUNTER → 2024-07-03 08:32 | Outpatient (BNVA) | payer MEDICARE, SELFPAY | PROVIDERS: PCP Internal Medicine; Visit Provider Internal Medicine | DX: I48.19 Other persistent atrial fibrillation (principal); E66.9 Obesity, unspecified; R73.02 Impaired glucose tolerance (oral); E78.00 Pure hypercholesterolemia, unspecified; I10 Essential (primary) hypertension; I87.2 Venous insufficiency (chronic) (peripheral); M79.673 Pain in unspecified foot; G47.33 Obstructive sleep apnea (adult) (pediatric); Z79.01 Long term (current) use of anticoagulants; Z68.32 Body mass index [BMI] 32.0-32.9, adult | CPT/HCPCS: 99212 ==

== ENCOUNTER 2024-07-04 08:16 | Outpatient (REF) | payer MEDICARE, SELFPAY ==
[2024-07-04 08:31] LABS: MANUAL DIFF FLAG NO
[2024-07-04 08:40] LABS: Basophils Absolute Auto 0.1 X10*3/uL (0.0-0.2); Basophils Percent Auto 0.6 % (0-2); Eosinophils Absolute Auto 0.2 X10*3/uL (0.0-0.4); Eosinophils Percent Auto 2.2 % (0-4); Hematocrit 39.4 % (42.0-52.0); Hemoglobin 13.2 g/dl (14.0-18.0); Imm Gran Abs Auto 0.04 X10*3/uL (0.00-0.03); Imm Gran Pct Auto 0.5 % (0.0-0.4); Lymphocytes Absolute Auto 2.4 X10*3/uL (1.2-4.9); Lymphocytes Percent Auto 27.1 % (20-40); Mean Corpuscular HGB Conc 33.5 g/dl (31.0-36.0); Mean Corpuscular Hemoglobin 30.8 pg (27.0-33.0); Mean Corpuscular Volume 92.1 fL (80.0-98.0); Mean Platelet Volume 10.4 fL (9.4-12.4); Monocytes Absolute Auto 0.8 X10*3/uL (0.1-1.2); Monocytes Percent Auto 9.1 % (2-11); Neutrophils Absolute Auto 5.3 x10*3/uL (2.0-8.3); Neutrophils Percent Auto 60.5 % (45-73); Platelet Count 134 X10*3/uL (160-400); Red Blood Count 4.28 X10*6/uL (4.60-5.80); Red Cell Distribution Width 13.9 % (11.0-16.0); White Blood Count 8.8 X10*3/uL (4.8-10.8)
[2024-07-04 08:45] LABS: Estimated Average Glucose 120 mg/dL; Hemoglobin A1c % 5.8 % (<6.0); Total Hemoglobin (HGBA1C) 3473.0095 umol/L
[2024-07-04 09:06] LABS: B Type Natriuretic Peptide 155 pg/mL (<100)
[2024-07-04 09:14] LABS: Alanine Aminotransferase 24 U/L (0-40); Albumin Level 4.2 g/dL (3.5-5.0); Alkaline Phosphatase 94 U/L (39-117); Anion Gap 12 (12-20); Aspartate Amino Transferase 27 U/L (5-37); Bilirubin Total 0.8 mg/dL (0.0-1.0); Blood Urea Nitrogen 15 mg/dL (9-16); Calcium 9.2 mg/dL (8.4-10.2); Carbon Dioxide 26 mmol/L (22-29); Chloride 105 mmol/L (96-108); Cholesterol 146 mg/dL (<200); Estimated Glomerular Filt Rate > 60; Glucose Random 140 mg/dL (60-115); HDL Cholesterol 44 mg/dL (>40); LDL Cholesterol Calculated 90 mg/dL (<100); Magnesium 2.1 mg/dL (1.6-2.6); Potassium 4.4 mmol/L (3.3-5.1); Sodium 139 mmol/L (135-145); Total Protein 6.9 g/dL (6.5-8.0); Triglycerides 64 mg/dL (<150)
[2024-07-04 09:34] LABS: Free T4 (Free Thyroxine) 0.97 ng/dL (0.71-1.85); Thyroid Stimulating Hormone 1.99 uIU/mL (0.32-4.0)
[2024-07-04 09:41] LABS: Folate 16.1 ng/mL (> or = 4.0); Vitamin B12 518 pg/mL (200-900)
== END 2024-07-04 08:17 | disposition home or self-care (01) ==
LOC: HO.LAB 08:16
PROVIDERS: PCP Internal Medicine; Visit Provider Internal Medicine
DX: I48.19 Other persistent atrial fibrillation (principal); E78.00 Pure hypercholesterolemia, unspecified; Z13.1 Encounter for screening for diabetes mellitus
CPT/HCPCS: 36415; 80053; 80061; 82607; 82746; 83036; 83735; 83880; 84439; 84443; 85025

== ENCOUNTER 2024-07-27 08:01 | Outpatient (AMB) | payer MEDICARE, SELFPAY ==
--- OUTSIDE RECORDS SUMMARY | 2024-07-27 08:03 | XMS_ITS | Clinical Summary ---
Author Organization 175 [facility] Address [address] [place] [address] Phone Care Team Providers Care Procedure Rn Name Role Phone Carter Garg MD Primary Care Provider [phone] Allergies No known active allergies Encounters Date Type Department Care Team Description 06/10/2024 8:15 AM EDT Consult Orthopedic Surgery [place] [address] [address] Nelson Floyd DPM Dermatophytosis of [...] Upcoming Encounters Date Type Department Care Team ([facility] st Contact Info) Description 09/09/2024 8:45 AM EDT Office Visit Orthopedic Surgery [facility] [address] [address] Nelson Floyd DPM [address] [address] Health Maintenance Due Date Last Done Comments [...] [employer] Care Teams Procedure Rn Relationship Specialty Start Date End Date Carter Garg MD 2 [facility] [address] [place] [place] [address] PCP - General Internal Medicine 04/20/24
[2024-07-27 08:07] LABS: Prothrombin Time Whole Bld POC 31.6 sec (11.1-13.5); ~PT, ~INR - Anti Coag Clinic 2.6 (0.9-1.1)
--- NOTE | 2024-07-27 08:08 | MHC.OFFVISCO ---
Intake Intake Visit Reasons: Anticoagulation Allergies amiodarone Adverse Reaction (Unknown, Verified 07/27/24 08:02) hypothyroidism Medication List - Last Reconciled 07/27/24 by Precious King RN atorvastatin 40 mg PO BEDTIME digoxin 125 mcg PO DAILY diltiazem HCl CD 240 mg PO DAILY furosemide 20 mg PO DAILY [JUXTA LITE Compression As directed] lisinopril 40 mg PO DAILY metoprolol succinate ER 200 mg PO DAILY psyllium husk (Fiber (psyllium husk)) 1.04 grams (2 x 0.52 gram) PO DAILY warfarin 5 mg See Protocol PO DAILY Nursing Note INR: 2.6 in therapeutic range of 2-3 Medications and supplements reviewed No changes in health, diet, medications, or supplements, Denies any signs and symptoms of bleeding or bruising or clotting. Bleeding, bruising, clotting discussed Nutritional guidance given Dose: 5mg X 5 days and 2.5mg X 2 days (Mon & Th) F/U INR: 4 weeks Patient verbalizes understanding of instructions given Anti-Coag Initial Assessment Social Hx Patient Tobacco Use Status: Former Tobacco user Tobacco use type: Cigarette alcohol intake: current Alcohol intake frequency: a few times a week Coding Level of Care Code Est Patient Level 1 Diagnoses Current use of anticoagulant therapy Z79.01 Assessment & Plan Assessment & Plan (1) Current use of anticoagulant therapy: Code(s): Z79.01 - correction (current) use of 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
== END 2024-07-27 08:13 | disposition home or self-care (01) ==
LOC: HO.ACS 08:01
PROVIDERS: PCP Internal Medicine; Visit Provider Internal Medicine Medical Oncology
DX: Z79.01 Long term (current) use of anticoagulants (principal)

== ENCOUNTER → 2024-07-27 08:01 | Outpatient (BNVA) | payer MEDICARE, SELFPAY | PROVIDERS: PCP Internal Medicine; Visit Provider Internal Medicine Medical Oncology | DX: I48.19 Other persistent atrial fibrillation (principal); Z79.01 Long term (current) use of anticoagulants; Z51.81 Encounter for therapeutic drug level monitoring | CPT/HCPCS: 85610; 99211 ==

== ENCOUNTER 2024-08-27 08:02 | Outpatient (AMB) | payer MEDICARE, SELFPAY ==
--- OUTSIDE RECORDS SUMMARY | 2024-08-27 08:05 | XMS_ITS | Clinical Summary ---
Author Organization 175 [facility] Address [address] [place] [address] Phone Care Team Providers Care Medical Concierge Name Role Phone Carter Garg MD Primary Care Provider [phone] Allergies No known active allergies Encounters Date Type Department Care Team Description 06/10/2024 8:15 AM EDT Consult Orthopedic Surgery [place] [address] [address] Nelson Floyd DPM Dermatophytosis of [...] Upcoming Encounters Date Type Department Care Team ([facility] st Contact Info) Description 09/09/2024 8:45 AM EDT Office Visit Orthopedic Surgery [facility] [address] [address] Nelson Floyd DPM [address] [address] Health Maintenance Due Date Last Done Comments RSV Immunization Adult Patients (1 - 1-dose 75+ series) 2018 Cholesterol Screening (Lipid Panel) 01/21/2022 Depression Screening 01/21/2022 Falls Risk Assessment 01/21/2022 Medicare Annual Wellness Visit 01/21/2022 Social Influencers of Health Screening 01/21/2022 COVID-19 Vaccine ( season) 2024 12/12/2023, 01/04/2023, 12/30/2021, Additional history exists Influenza Vaccine (#1) 2024 , 12/26/2022, 12/28/2021, Additional history exists DTaP,Tdap,and Td Vaccines (2 - Td or Tdap) 01/31/2026 02/01/2016 Zoster Vaccines Completed 08/15/2018, 05/15/2018 Pneumococcal Vaccine: 50+ Years Completed 01/14/2019, 06/07/2015 HIB Vaccines Aged Out No longer eligi [...] [employer] Care Teams Medical Concierge Relationship Specialty Start Date End Date Carter Garg MD [address] [place] [address] [address] [facility] [place] [address] PCP - General Internal Medicine 04/20/24
[2024-08-27 08:08] LABS: Prothrombin Time Whole Bld POC 47.8 sec (11.1-13.5); ~PT, ~INR - Anti Coag Clinic 4.0 (0.9-1.1)
--- NOTE | 2024-08-27 08:17 | MHC.OFFVISCO ---
Intake Intake Visit Reasons: Anticoagulation Allergies amiodarone Adverse Reaction (Unknown, Verified 08/27/24 08:04) hypothyroidism Medication List - Last Reconciled 08/27/24 by Merline Stacy RN atorvastatin 40 mg PO BEDTIME digoxin 125 mcg PO DAILY diltiazem HCl CD 240 mg PO DAILY furosemide 20 mg PO DAILY [JUXTA LITE Compression As directed] lisinopril 40 mg PO DAILY metoprolol succinate ER 200 mg PO DAILY psyllium husk (Fiber (psyllium husk)) 1.04 grams (2 x 0.52 gram) PO DAILY warfarin 5 mg See Protocol PO DAILY Nursing Note NO CP,SOB,DIET/MED CHANGES,FALLS OR SX OF BLEEDING. HOLD WARFARIN TOMORROW(TOOK 2.5MGM TODAY)AND FOLLOW-UP IN 2 WEEKS. WILL BE SURE TO HAVE D[place] TODAY AND TOMORROW. GOOD UNDERSTANDING OF DOSING INSTR. Anti-Coag Initial Assessment Social Hx Patient Tobacco Use Status: Former Tobacco user Tobacco use type: Cigarette alcohol intake: current Alcohol intake frequency: a few times a week Coding Level of Care Code Est Patient Level 1 Diagnoses Current use of anticoagulant therapy Z79.01 Assessment & Plan Assessment & Plan (1) Current use of anticoagulant therapy: Code(s): Z79.01 - assisted (current) use of 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
== END 2024-08-27 08:28 | disposition home or self-care (01) ==
LOC: HO.ACS 08:02
PROVIDERS: PCP Internal Medicine; Visit Provider Internal Medicine Medical Oncology
DX: Z79.01 Long term (current) use of anticoagulants (principal)

== ENCOUNTER → 2024-08-27 08:02 | Outpatient (BNVA) | payer MEDICARE, SELFPAY | PROVIDERS: PCP Internal Medicine; Visit Provider Internal Medicine Medical Oncology | DX: I48.19 Other persistent atrial fibrillation (principal); Z79.01 Long term (current) use of anticoagulants; Z51.81 Encounter for therapeutic drug level monitoring | CPT/HCPCS: 85610; 99211 ==

== ENCOUNTER 2024-09-10 08:17 | Outpatient (AMB) | payer MEDICARE, SELFPAY ==
[2024-09-10 08:25] LABS: Prothrombin Time Whole Bld POC 41.7 sec (11.1-13.5); ~PT, ~INR - Anti Coag Clinic 3.5 (0.9-1.1)
--- OUTSIDE RECORDS SUMMARY | 2024-09-10 08:29 | XMS_ITS | Clinical Summary ---
Author Organization 175 [facility] Address 175 [place] [address] Phone Care Team Providers Care Print And Pattern Designer Name Role Phone Carter Garg MD Primary Care Provider [phone] Allergies No known active allergies Medications No known medications Encounters Date Type Department Care Team Description 09/09/2024 8:45 AM EDT Office Visit Orthopedic Surgery [place] [address] [address] Nelson Floyd DPM Primary osteoarthritis of both feet (Primary Dx); Peripheral venous insufficiency; Dermatophytosis of nail; Acquired hallux valgus of left foot; Acquired hallux valgus of right foot; Corns and callosities; Pain in toe of right foot; Pain in toe of left foot; Bilateral femoral artery stenosis (CMS/HCC V24) from Last 3 Months Social History Tobacco [...] - - Weight 109 kg (240 lb) 09/09/2024 8:57 AM EDT Height 180.3 cm (5' 10.98 ) 09/09/2024 8:57 AM E DT Body Mass Index 33.49 09/09/2024 8:57 AM EDT Plan of Treatment Upcoming Encounters Date Type Department Care Team ([facility] st Contact Info) Description 12/10/2024 8:45 AM EDT Office Visit Orthopedic [facility] [address] [address] Nelson Floyd DPM [address] [address] Health Maintenance Due Date Last Done Comments RSV Immunization Adult Patients (1 - 1-dose 75+ series) 2018 Cholesterol Screening (Lipid Panel) 01/21/2022 Falls Risk Assessment 01/21/2022 Medicare Annual Wellness Visit 01/21/2022 Social Influencers of Health Screening 01/21/2022 Depression Screening 02/19/2024 COVID-19 Vaccine ( season) 2024 12/12/2023, 01/04/2023, [...] to complete this topic Insurance [employer] Care Teams Print And Pattern Designer Relationship Specialty Start Date End Date Carter Garg MD [address] [place] [address] [address] [facility] [place] [address] PCP - General Internal Medicine 04/20/24
--- NOTE | 2024-09-10 08:31 | MHC.OFFVISCO ---
Intake Intake Visit Reasons: Anticoagulation Allergies amiodarone Adverse Reaction (Unknown, Verified 09/10/24 08:21) hypothyroidism Medication List - Last Reconciled 09/10/24 by Precious King, LETY atorvastatin 40 mg PO BEDTIME digoxin 125 mcg PO DAILY diltiazem HCl CD 240 mg PO DAILY furosemide 20 mg PO DAILY [JUXTA LITE Compression As directed] lisinopril 40 mg PO DAILY metoprolol succinate ER 200 mg PO DAILY psyllium husk (Fiber (psyllium husk)) 1.04 grams (2 x 0.52 gram) PO DAILY warfarin 5 mg See Protocol PO DAILY Nursing Note INR: 3.5 in therapeutic range of 2-3 Medications and supplements reviewed No changes in health, diet, medications, or supplements, Denies any signs and symptoms of bleeding or bruising or clotting. Bleeding, bruising, clotting discussed Nutritional guidance given to have a serving of greens today. Pt states he will have spinach Dose: pt already took today's dose of 2.5mg so will decrease tomorrow's dose of 5mg to 2.5mg, then resume usual dose of 5mg X 5 days and 2.5mg X 2 days (Mon & ) F/U INR: 2 weeks Patient verbalizes understanding of instructions given Anti-Coag Initial Assessment Social Hx Patient Tobacco Use Status: Former Tobacco user Tobacco use type: Cigarette alcohol intake: current Alcohol intake frequency: a few times a week Coding Level of Care Code Est Patient Level 1 Diagnoses Current use of anticoagulant therapy Z79.01 Assessment & Plan Assessment & Plan (1) Current use of anticoagulant therapy: Code(s): Z79.01 - FPC (current) use of 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
== END 2024-09-10 08:35 | disposition home or self-care (01) ==
LOC: HO.ACS 08:17
PROVIDERS: PCP Internal Medicine; Visit Provider Internal Medicine Medical Oncology
DX: Z79.01 Long term (current) use of anticoagulants (principal)

== ENCOUNTER → 2024-09-10 08:17 | Outpatient (BNVA) | payer MEDICARE, SELFPAY | PROVIDERS: PCP Internal Medicine; Visit Provider Internal Medicine Medical Oncology | DX: I48.19 Other persistent atrial fibrillation (principal); Z79.01 Long term (current) use of anticoagulants; Z51.81 Encounter for therapeutic drug level monitoring | CPT/HCPCS: 85610; 99211 ==

== ENCOUNTER → 2024-09-28 07:57 | Outpatient (BNVA) | payer MEDICARE, SELFPAY | PROVIDERS: PCP Internal Medicine; Visit Provider Internal Medicine Medical Oncology | DX: Z79.01 Long term (current) use of anticoagulants (principal) | CPT/HCPCS: 85610; 99211 ==

== ENCOUNTER 2024-10-13 08:00 | Outpatient (AMB) | payer MEDICARE, SELFPAY ==
--- OUTSIDE RECORDS SUMMARY | 2024-10-13 08:04 | XMS_ITS | Clinical Summary ---
Author Organization 175 [facility] Address [address] [place] [address] Phone Care Team Providers Care Mortgage Loan Funder Name Role Phone Carter Garg MD Primary Care Provider [phone] Allergies No known active allergies Medications No known medications Encounters Date Type Department Care Team Description 09/09/2024 8:45 AM EDT Office Visit Orthopedic Surgery [facility] [address] [phone] Nelson Floyd DPM Primary osteoarthritis [...] Upcoming Encounters Date Type Department Care Team (Late st Contact Info) Description 12/10/2024 8:45 AM EDT Office Visit Orthopedic [facility] [address] [phone] Nelson Floyd DPM [address] [place] [phone] Health Maintenance Due Date Last Done Comments [...] [employer] Care Teams Mortgage Loan Funder Relationship Specialty Start Date End Date Carter Garg MD [address] [place] [address] [address] [facility] [place] [address] PCP - General Internal Medicine 04/20/24
[2024-10-13 08:06] LABS: Prothrombin Time Whole Bld POC 34.6 sec (11.1-13.5); ~PT, ~INR - Anti Coag Clinic 2.9 (0.9-1.1)
--- NOTE | 2024-10-13 08:08 | MHC.OFFVISCO ---
Intake Intake Visit Reasons: Anticoagulation Allergies amiodarone Adverse Reaction (Unknown, Verified 10/13/24 08:01) hypothyroidism Medication List - Last Reconciled 10/13/24 by Precious King RN atorvastatin 40 mg PO BEDTIME digoxin 125 mcg PO DAILY diltiazem HCl CD 240 mg PO DAILY furosemide 20 mg PO DAILY [JUXTA LITE Compression As directed] lisinopril 40 mg PO DAILY metoprolol succinate ER 200 mg PO DAILY psyllium husk (Fiber (psyllium husk)) 1.04 grams (2 x 0.52 gram) PO DAILY warfarin 5 mg See Protocol PO DAILY Nursing Note INR: 2.9 in therapeutic range of 2-3 Medications and supplements reviewed No changes in health, diet, medications, or supplements, Denies any signs and symptoms of bleeding or bruising or clotting. Bleeding, bruising, clotting discussed Nutritional guidance given to have a serving of greens today Dose: 5mg X 5 days and 2.5mg X 2 days (Mon & Th) F/U INR: 1 month Patient verbalizes understanding of instructions given Anti-Coag Initial Assessment Social Hx Patient Tobacco Use Status: Former Tobacco user Tobacco use type: Cigarette alcohol intake: current Alcohol intake frequency: a few times a week Coding Level of Care Code Est Patient Level 1 Diagnoses Current use of anticoagulant therapy Z79.01 Assessment & Plan Assessment & Plan (1) Current use of anticoagulant therapy: Code(s): Z79.01 - prison (current) use of 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
== END 2024-10-13 08:15 | disposition home or self-care (01) ==
LOC: HO.ACS 08:00
PROVIDERS: PCP Internal Medicine; Visit Provider Internal Medicine Medical Oncology
DX: Z79.01 Long term (current) use of anticoagulants (principal)

== ENCOUNTER → 2024-10-13 08:00 | Outpatient (BNVA) | payer MEDICARE, SELFPAY | PROVIDERS: PCP Internal Medicine; Visit Provider Internal Medicine Medical Oncology | DX: I48.19 Other persistent atrial fibrillation (principal); Z79.01 Long term (current) use of anticoagulants; Z51.81 Encounter for therapeutic drug level monitoring | CPT/HCPCS: 85610; 99211 ==

== ENCOUNTER 2024-11-04 08:04 | Outpatient (AMB) | payer MEDICARE, SELFPAY ==
--- NOTE | 2024-11-04 08:30 | MHC.OFFVISCO ---
Intake Intake Visit Reasons: Anticoagulation Allergies amiodarone Adverse Reaction (Unknown, Verified 11/04/24 08:26) hypothyroidism Medication List - Last Reconciled 11/04/24 by Christina Brown RN atorvastatin 40 mg PO BEDTIME digoxin 125 mcg PO DAILY diltiazem HCl CD 240 mg PO DAILY furosemide 20 mg PO DAILY [JUXTA LITE Compression As directed] lisinopril 40 mg PO DAILY metoprolol succinate ER 200 mg PO DAILY psyllium husk (Fiber (psyllium husk)) 1.04 grams (2 x 0.52 gram) PO DAILY warfarin 5 mg See Protocol PO DAILY Nursing Note INR 4.4-?? out of therapeutic range 2-3 Medications and supplements reviewed Patient status: pt states etoh, no greens Medications or supplements: no greens Diet: fair Denies any signs and symptoms of bleeding or clotting or unusual bruising Bleeding, bruising, clotting discussed Nutritional guidance given: eat cooked greens to lower, no reds for 2 days Dose: pt states already took warfarin today, hold 2.5mg tomm and take 2.5mg fri- then cont reg dosing 2.5mg x 2, 5mg x 5 F/U INR Date : 1 week Patient verbalizing understanding of instructions given. pt to acs on incorrect appt day Anti-Coag Initial Assessment Social Hx Patient Tobacco Use Status: Former Tobacco user Tobacco use type: Cigarette alcohol intake: current Alcohol intake frequency: a few times a week Coding Level of Care Code Est Patient Level 1 Diagnoses Current use of anticoagulant therapy Z79.01 Assessment & Plan Assessment & Plan (1) Current use of anticoagulant therapy: Code(s): Z79.01 - penitentiary (current) use of 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
[2024-11-04 08:31] LABS: Prothrombin Time Whole Bld POC 52.5 sec (11.1-13.5); ~PT, ~INR - Anti Coag Clinic 4.4 (0.9-1.1)
== END 2024-11-04 08:47 | disposition home or self-care (01) ==
LOC: HO.ACS 08:04
PROVIDERS: PCP Internal Medicine; Visit Provider Internal Medicine Medical Oncology
DX: Z79.01 Long term (current) use of anticoagulants (principal)

== ENCOUNTER → 2024-11-04 08:04 | Outpatient (BNVA) | payer MEDICARE, SELFPAY | PROVIDERS: PCP Internal Medicine; Visit Provider Internal Medicine Medical Oncology | DX: I48.19 Other persistent atrial fibrillation (principal); Z79.01 Long term (current) use of anticoagulants; Z51.81 Encounter for therapeutic drug level monitoring | CPT/HCPCS: 85610; 99211 ==

== ENCOUNTER 2024-11-12 08:02 | Outpatient (AMB) | payer MEDICARE, SELFPAY ==
[2024-11-12 08:12] LABS: Prothrombin Time Whole Bld POC 38.1 sec (11.1-13.5); ~PT, ~INR - Anti Coag Clinic 3.2 (0.9-1.1)
--- NOTE | 2024-11-12 08:22 | MHC.OFFVISCO ---
Intake Intake Visit Reasons: Anticoagulation Allergies amiodarone Adverse Reaction (Unknown, Verified 11/12/24 08:04) hypothyroidism Medication List - Last Reconciled 11/12/24 by Precious King RN atorvastatin 40 mg PO BEDTIME digoxin 125 mcg PO DAILY diltiazem HCl CD 240 mg PO DAILY furosemide 20 mg PO DAILY [JUXTA LITE Compression As directed] lisinopril 40 mg PO DAILY metoprolol succinate ER 200 mg PO DAILY psyllium husk (Fiber (psyllium husk)) 1.04 grams (2 x 0.52 gram) PO DAILY warfarin 5 mg See Protocol PO DAILY Nursing Note INR 3.2?out of therapeutic range of 2-3 Previously 4.4. Medications and supplements reviewed Patient status: feels well Medications or supplements: no changes Diet: no changes Denies any signs and symptoms of bleeding or clotting or unusual bruising Bleeding, bruising, clotting discussed Nutritional guidance given: to have a serving of greens today and then to balance reds and greens. Dose: pt took today's dose so will decrease tomorrow's dose to 2.5mg (5mg) then 5mg X 5 days and 2.5mg X 2 days (Mon/Thurs) F/U INR Date: 2 weeks?? Patient verbalizing understanding of instructions given. 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
== END 2024-11-12 08:26 | disposition home or self-care (01) ==
LOC: HO.ACS 08:02
PROVIDERS: PCP Internal Medicine; Visit Provider Internal Medicine Medical Oncology
DX: Z79.01 Long term (current) use of anticoagulants (principal)

== ENCOUNTER → 2024-11-12 08:02 | Outpatient (BNVA) | payer MEDICARE, SELFPAY | PROVIDERS: PCP Internal Medicine; Visit Provider Internal Medicine Medical Oncology | DX: I48.19 Other persistent atrial fibrillation (principal); Z79.01 Long term (current) use of anticoagulants; Z51.81 Encounter for therapeutic drug level monitoring | CPT/HCPCS: 85610; 99211 ==

== ENCOUNTER 2024-11-26 07:59 | Outpatient (AMB) | payer MEDICARE, SELFPAY ==
[2024-11-26 08:07] LABS: Prothrombin Time Whole Bld POC 41.0 sec (11.1-13.5); ~PT, ~INR - Anti Coag Clinic 3.4 (0.9-1.1)
--- NOTE | 2024-11-26 08:17 | MHC.OFFVISCO ---
Intake Intake Visit Reasons: Anticoagulation Allergies amiodarone Adverse Reaction (Unknown, Verified 11/26/24 08:03) hypothyroidism Medication List - Last Reconciled 11/26/24 by Precious King, LETY atorvastatin 40 mg PO BEDTIME digoxin 125 mcg PO DAILY diltiazem HCl CD 240 mg PO DAILY furosemide 20 mg PO DAILY [JUXTA LITE Compression As directed] lisinopril 40 mg PO DAILY metoprolol succinate ER 200 mg PO DAILY psyllium husk (Fiber (psyllium husk)) 1.04 grams (2 x 0.52 gram) PO DAILY warfarin 5 mg See Protocol PO DAILY Nursing Note INR: 3.4 out of therapeutic range of 2-3 Medications and supplements reviewed Patient status: feels well Medications or supplements: no changes Diet: pt states his appetite is not like it used to be Denies any signs and symptoms of bleeding or clotting or unusual bruising Bleeding, bruising, clotting discussed Nutritional guidance given: to have a serving of greens. Pt states he will have spinach Dose: pt took today's dose already. Will decrease tomorrow's dose to 2.5mg (5mg) then decrease weekly dose to 5mg X 4 days and 2.5mg X 3 days (M/W/F) F/U INR Date: 12/15/24 Patient verbalizing understanding of instructions given. 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
== END 2024-11-26 08:29 | disposition home or self-care (01) ==
LOC: HO.ACS 07:59
PROVIDERS: PCP Internal Medicine; Visit Provider Internal Medicine Medical Oncology
DX: Z79.01 Long term (current) use of anticoagulants (principal)

== ENCOUNTER → 2024-11-26 07:59 | Outpatient (BNVA) | payer MEDICARE, SELFPAY | PROVIDERS: PCP Internal Medicine; Visit Provider Internal Medicine Medical Oncology | DX: I48.19 Other persistent atrial fibrillation (principal); Z79.01 Long term (current) use of anticoagulants; Z51.81 Encounter for therapeutic drug level monitoring | CPT/HCPCS: 85610; 99211 ==

== ENCOUNTER 2024-12-15 08:02 | Outpatient (AMB) | payer MEDICARE, SELFPAY ==
[2024-12-15 08:09] LABS: Prothrombin Time Whole Bld POC 42.4 sec (11.1-13.5); ~PT, ~INR - Anti Coag Clinic 3.5 (0.9-1.1)
--- NOTE | 2024-12-15 08:17 | MHC.OFFVISCO ---
Intake Intake Visit Reasons: Anticoagulation Allergies amiodarone Adverse Reaction (Unknown, Verified 12/15/24 08:03) hypothyroidism Medication List - Last Reconciled 12/15/24 by Precious King RN atorvastatin 40 mg PO BEDTIME digoxin 125 mcg PO DAILY diltiazem HCl CD 240 mg PO DAILY furosemide 20 mg PO DAILY [JUXTA LITE Compression As directed] lisinopril 40 mg PO DAILY metoprolol succinate ER 200 mg PO DAILY psyllium husk (Fiber (psyllium husk)) 1.04 grams (2 x 0.52 gram) PO DAILY warfarin 5 mg See Protocol PO DAILY Nursing Note INR: 3.5 out of therapeutic range of 2-3 Pt states his appetite is not what it used to be. Weekly dose was decreased 2 weeks ago but pt did not follow directions and stayed on his usual dose. Medications and supplements reviewed Patient status: feels well Medications or supplements: no changes Diet: decreased appetite Denies any signs and symptoms of bleeding or clotting or unusual bruising Bleeding, bruising, clotting discussed Nutritional guidance given: to have a serving of greens today. Pt states he will have spinach today. Dose: 5mg X 4 days and 2.5mg X 3 days (M/W/F) F/U INR Date: 2 weeks?? Patient verbalizing understanding of instructions given. 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
== END 2024-12-15 08:32 | disposition home or self-care (01) ==
LOC: HO.ACS 08:02
PROVIDERS: PCP Internal Medicine; Visit Provider Internal Medicine Medical Oncology
DX: Z79.01 Long term (current) use of anticoagulants (principal)

== ENCOUNTER → 2024-12-15 08:02 | Outpatient (BNVA) | payer MEDICARE, SELFPAY | PROVIDERS: PCP Internal Medicine; Visit Provider Internal Medicine Medical Oncology | DX: I48.19 Other persistent atrial fibrillation (principal); Z79.01 Long term (current) use of anticoagulants; Z51.81 Encounter for therapeutic drug level monitoring | CPT/HCPCS: 85610; 99211 ==

== ENCOUNTER 2024-12-29 07:59 | Outpatient (AMB) | payer MEDICARE, SELFPAY ==
--- OUTSIDE RECORDS SUMMARY | 2024-12-29 08:02 | XMS_ITS | Clinical Summary ---
Author Organization 175 [facility] Address [address] [place] [address] Phone Care Team Providers Care Presser All Around Name Role Phone Carter Garg MD Primary Care Provider [phone] Allergies No known active allergies Medications No known medications Social History Tobacco Use Types Packs/Day Years [...] 09/09/2024 8:57 AM EDT Plan of Treatment Health Maintenance Due Date Last Done Comments [...] [employer] [place] [employer] Care Teams Presser All Around Relationship Specialty Start Date End Date Carter Garg MD [address] [place] [address] [address] [facility] [place] [address] PCP - General Internal Medicine 04/20/24
[2024-12-29 08:10] LABS: Prothrombin Time Whole Bld POC 33.7 sec (11.1-13.5); ~PT, ~INR - Anti Coag Clinic 2.8 (0.9-1.1)
--- NOTE | 2024-12-29 08:19 | MHC.OFFVISCO ---
Intake Intake Visit Reasons: Anticoagulation Allergies amiodarone Adverse Reaction (Unknown, Verified 12/29/24 08:04) hypothyroidism Medication List - Last Reconciled 12/29/24 by Merline Stacy RN atorvastatin 40 mg PO BEDTIME digoxin 125 mcg PO DAILY diltiazem HCl CD 240 mg PO DAILY furosemide 20 mg PO DAILY [JUXTA LITE Compression As directed] lisinopril 40 mg PO DAILY metoprolol succinate ER 200 mg PO DAILY psyllium husk (Fiber (psyllium husk)) 1.04 grams (2 x 0.52 gram) PO DAILY warfarin 5 mg See Protocol PO DAILY Nursing Note NO CP,SOB,DIET/MED CHANGES,FALLS OR SX OF BLEEDING. CONTINUE PRESENT DOSING AND FOLLOW-UP IN 3 WEEKS GOOD UNDERSTANDING OF DOSING INSTR. 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
== END 2024-12-29 08:30 | disposition home or self-care (01) ==
LOC: HO.ACS 07:59
PROVIDERS: PCP Internal Medicine; Visit Provider Internal Medicine Medical Oncology
DX: Z79.01 Long term (current) use of anticoagulants (principal)

== ENCOUNTER → 2024-12-29 07:59 | Outpatient (BNVA) | payer MEDICARE, SELFPAY | PROVIDERS: PCP Internal Medicine; Visit Provider Internal Medicine Medical Oncology | DX: Z79.01 Long term (current) use of anticoagulants (principal) | CPT/HCPCS: 85610; 99211 ==

== ENCOUNTER 2024-12-30 08:09 | Outpatient (AMB) | payer MEDICARE, SELFPAY ==
--- OUTSIDE RECORDS SUMMARY | 2024-12-30 08:13 | XMS_ITS | Clinical Summary ---
Author Organization 175 [facility] Address [address] [place] [address] Phone Care Team Providers Care Donor Technician Name Role Phone Carter Garg MD Primary Care Provider [phone] Allergies No known active allergies Medications No [...] [employer] [place] [employer] Care Teams Donor Technician Relationship Specialty Start Date End Date Carter Garg MD [address] [place] [address] [address] [facility] [place] [address] PCP - General Internal Medicine 04/20/24
--- NOTE | 2024-12-30 08:16 | A.OFFVIS_ITS ---
Vital Signs 12/30/24 08:17 Height 6 ft Weight 235 lb 14.314 oz BMI 32.0 BP 128/60 Blood Pressure Location Lt brachial Position Sitting Pulse 71 Pulse Source Monitor Intake Visit Reasons: 1 yr f/up Allergies amiodarone Adverse Reaction (Unknown, Verified 12/29/24 08:04) hypothyroidism Medication List - Last Reconciled 12/30/24 by Carroll Wells MD atorvastatin 40 mg PO BEDTIME digoxin 125 mcg PO DAILY diltiazem HCl CD 240 mg PO DAILY furosemide 20 mg PO DAILY [JUXTA LITE Compression As directed] lisinopril 40 mg PO DAILY metoprolol succinate ER 200 mg PO DAILY psyllium husk (Fiber (psyllium husk)) 1.04 grams (2 x 0.52 gram) PO DAILY warfarin 5 mg See Protocol PO DAILY HPI Comments Details: Chele returns for follow-up regarding atrial fibrillation. ?He has had atrial fibrillation for more than 15 years or so.? Underwent cardioversion many years ago which was unsuccessful.? Essentially, he has remained in atrial fibrillation throughout. ? He also has chronic leg swelling, suspected multifactorial. Overall, no specific cardiac concerns. He states he is doing fine. No angina or shortness of breath or any other concerning symptoms. [facility] Medical History Leg edema Painful arc syndrome Thrombocytopenia Obesity (BMI 30-39.9) Impaired glucose tolerance Peripheral neuropathy Peripheral vascular disease Hypercholesterolemia Essential hypertension Persistent atrial fibrillation Surgical History Status post excision of lipoma No pertinent past surgical history Family History Father Lung cancer Mother Lung cancer Brother Lung cancer Social History Housing: House Alcohol intake: current Alcohol intake frequency: a few times a week Patient Tobacco Use Status: Former Tobacco user Tobacco use type: Cigarette Years Smoked: quit smoking in 1969 e-Cigarette/Vaping Use: Never Used Second Hand Smoke Exposure: Yes service: No Current occupational status: retired Current occupational exposures/hazards: No Cognitive needs: No Hearing needs: No Vision needs: Yes Review of Systems Const Denies weakness ENT Denies dizziness Card Denies chest pain, Denies chest pain with activity, Denies syncope, Denies rapid heart rate, Denies pedal edema, Denies edema, Denies leg edema, Denies lightheadedness, Denies palpitations, Denies dyspnea, Denies dyspnea on exertion and Denies orthopnea Resp Denies cough, Denies dyspnea and Denies dyspnea on exertion GI Denies hematochezia and Denies change in stool character Musc Denies abnormal gait, Denies muscle cramps, Denies muscle weakness, Denies numbness, Denies radiating pain into limb and Denies tingling Neuro Denies abnormal gait, Denies dizziness, Denies syncope, Denies numbness, Denies tingling and Denies weakness Endo Denies palpitations Physical Exam Vital Signs: Last Vital Signs Pulse 71 12/30/24 08:17 BP 128/60 12/30/24 08:17 BMI result Body Mass Index 32.0 Const General: comfortable and no acute distress Orientation/consciousness: patient oriented x3 HEENT Other: Unremarkable Head: Yes normal to inspection Neck Neck: Yes normal visual inspection Chest Chest palpation & inspection: normal inspection of the chest Resp Auscultation: clear to auscultation bilaterally Cardio Palpation: normal PMI Heart sounds: S1 normal heart sound present, S2 normal heart sound present, no gallops, no murmurs and no rubs GI Palpation (GI): Soft to palpation Back/Spine/Pelvis Other: unremarkable Skin General skin exam: no rashes or lesions noted Neuro General: patient oriented x3 Extrem Other: Swollen with chronic changes General: Yes normal to inspection Psych Mental Status: mental status grossly normal Office Procedures EKG Details: EKG with atrial fibrillation at 71/Min; rightward axis. [id number], Complete Assessment & Plan Assessment & Plan (1) Persistent atrial fibrillation: Code(s): I48.19 - Other persistent atrial fibrillation Category: Medical Plan: He has been stable on metoprolol, diltiazem and digoxin. No changes. Remains on warfarin. Well controlled atrial fibrillation on the EKG. In the last echocardiogram, LVEF 65%. Mild aortic/mitral calcification. Myocardial perfusion imaging study in the past shows normal perfusion. To check digoxin levels. We discussed about that today. (2) Essential hypertension: Code(s): I10 - Essential (primary) hypertension Category: Medical Plan: On lisinopril. Blood pressure seems stable. (3) Leg edema: Code(s): R60.0 - Localized edema Category: Medical Plan: Mostly suspect venous insufficiency but can be multifactorial. He is on a small dose of Lasix. (4) Obstructive sleep apnea: Code(s): G47.33 - Obstructive sleep apnea (adult) (pediatric) Category: Medical Plan: He states he is not using CPAP anymore. That can certainly lead to lower extremity swelling. We discussed about that today. Plan Discussion Notes During the visit, we discussed the patient's venous insufficiency. We also reviewed his digoxin therapy, emphasizing the importance of annual blood tests to monitor levels, and instructed him to perform the test before taking his medication on the day of the test. The patient expressed intolerance to CPAP therapy, which he discontinued due to discomfort. He discussed about consequences from the same. Patient was informed and verbally consented to the use of an ambient scribe for clinic note documentation during this visit. Orders: Orders Digoxin Today I48.19 - Other persistent atrial fibrillation Patient Instructions: - Schedule and complete a blood test for digoxin levels before taking your medication on the day of the test. - Monitor for any new symptoms related to venous insufficiency and report them during your next visit. Coding Level of Care Code Est Pt Level 4 (01368) Complex EM visit Add On G2211 Diagnoses Persistent atrial fibrillation I48.19 Essential hypertension I10 Leg edema R60.0 Obstructive sleep apnea G47.33 CPT Codes EKG - CPT: 63825-[id number], Complete ([id number])
[2024-12-30 08:17] VITALS: BP 128/60; PULSE 71; BMI 32.0
== END 2024-12-30 08:37 | disposition home or self-care (01) ==
LOC: HO.HCS 08:10
PROVIDERS: PCP Internal Medicine; Visit Provider Internal Medicine
DX: I48.19 Other persistent atrial fibrillation (principal); I10 Essential (primary) hypertension; R60.0 Localized edema; G47.33 Obstructive sleep apnea (adult) (pediatric)
CPT/HCPCS: 93010; 99214; G2211

== ENCOUNTER → 2024-12-30 08:09 | Outpatient (BNVA) | payer MEDICARE, SELFPAY | PROVIDERS: PCP Internal Medicine; Visit Provider Internal Medicine | DX: I48.19 Other persistent atrial fibrillation (principal); I10 Essential (primary) hypertension; R06.00 Dyspnea, unspecified; G47.33 Obstructive sleep apnea (adult) (pediatric); I87.2 Venous insufficiency (chronic) (peripheral); Z79.01 Long term (current) use of anticoagulants; Z87.891 Personal history of nicotine dependence | CPT/HCPCS: 93005; 99212 ==

== ENCOUNTER 2025-01-19 07:59 | Outpatient (REF) | payer MEDICARE, SELFPAY ==
[2025-01-19 09:38] LABS: Digoxin 0.5 ng/mL (0.8-2.0)
== END 2025-01-19 08:00 | disposition home or self-care (01) ==
LOC: HO.LAB 07:59
PROVIDERS: Absent Provider Internal Medicine; PCP Internal Medicine; Visit Provider Internal Medicine Medical Oncology
DX: I48.19 Other persistent atrial fibrillation (principal)
CPT/HCPCS: 36415; 80162; 85610; 99211

== ENCOUNTER 2025-01-19 07:59 | Outpatient (AMB) | payer MEDICARE, SELFPAY ==
--- OUTSIDE RECORDS SUMMARY | 2025-01-19 08:01 | XMS_ITS | Clinical Summary ---
Author Organization 175 [facility] Address [address] [place] [address] Phone Care Team Providers Care Capacity Manager Name Role Phone Carter Garg MD Primary Care Provider [phone] Allergies No known active allergies Medications No [...] [employer] [place] [employer] Care Teams Capacity Manager Relationship Specialty Start Date End Date Carter Garg MD [address] [place] [address] [address] [facility] [place] [address] PCP - General Internal Medicine 04/20/24
[2025-01-19 08:11] LABS: Prothrombin Time Whole Bld POC 20.2 sec (11.1-13.5); ~PT, ~INR - Anti Coag Clinic 1.7 (0.9-1.1)
--- NOTE | 2025-01-19 08:23 | MHC.OFFVISCO ---
Intake Intake Visit Reasons: Anticoagulation Allergies amiodarone Adverse Reaction (Unknown, Verified 01/19/25 08:06) hypothyroidism Medication List - Last Reconciled 01/19/25 by Merline Stacy RN atorvastatin 40 mg PO BEDTIME digoxin 125 mcg PO DAILY diltiazem HCl CD 240 mg PO DAILY furosemide 20 mg PO DAILY [JUXTA LITE Compression As directed] lisinopril 40 mg PO DAILY metoprolol succinate ER 200 mg PO DAILY psyllium husk (Fiber (psyllium husk)) 1.04 grams (2 x 0.52 gram) PO DAILY warfarin 5 mg See Protocol PO DAILY Nursing Note PT. DOES NOT FOLLOW THE DOSE SHEET AND STATES THAT HE HAS BEEN TAKING 2.5MG MOST DAYS. AFTER DISCUSSION HE HAS AGREED TO USE A PILL BOX. INMEANTIME BOOST WARFARIN TODAY AND TOMORROW THEN RESUME PRESENT DOSING (2.5MG X3 5MGM X4) AND FOLLOW-UP IN 2 WEEKS. NO GREENS 2-3 DAYS PT.STATES GOOD UNDERSTANDING OF DOSE CHANGES THIS WEEK. 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
== END 2025-01-19 08:55 | disposition home or self-care (01) ==
LOC: HO.ACS 07:59
PROVIDERS: PCP Internal Medicine; Visit Provider Internal Medicine Medical Oncology
DX: Z79.01 Long term (current) use of anticoagulants (principal)

== ENCOUNTER 2025-02-03 08:17 | Outpatient (AMB) | payer MEDICARE, SELFPAY ==
--- OUTSIDE RECORDS SUMMARY | 2025-02-03 08:22 | XMS_ITS | Clinical Summary ---
Author Organization 175 [facility] Address [address] [place] [address] Phone Care Team Providers Care Training Administrator Name Role Phone Carter Garg MD Primary Care Provider [phone] Allergies No known active allergies Medications No [...] [employer] [place] [employer] Care Teams Training Administrator Relationship Specialty Start Date End Date Carter Garg MD [address] [place] [address] [address] [facility] [place] [address] PCP - General Internal Medicine 04/20/24
--- NOTE | 2025-02-03 08:31 | MHC.OFFVISCO ---
Intake Intake Visit Reasons: Anticoagulation Allergies amiodarone Adverse Reaction (Unknown, Verified 02/03/25 08:27) hypothyroidism Medication List - Last Reconciled 02/03/25 by Christina Brown RN atorvastatin 40 mg PO BEDTIME digoxin 125 mcg PO DAILY diltiazem HCl CD 240 mg PO DAILY furosemide 20 mg PO DAILY [JUXTA LITE Compression As directed] lisinopril 40 mg PO DAILY metoprolol succinate ER 200 mg PO DAILY psyllium husk (Fiber (psyllium husk)) 1.04 grams (2 x 0.52 gram) PO DAILY warfarin 5 mg See Protocol PO DAILY Nursing Note INR 1.5-?? out of therapeutic range 2-3 Medications and supplements reviewed Patient status: pt denies missed doses Medications or supplements: no changes Diet: appetite less Denies any signs and symptoms of bleeding or clotting or unusual bruising Bleeding, bruising, clotting discussed Nutritional guidance given: no greens for 2-3 days, eat reds to raise Dose: F/U INR Date : []?? Patient verbalizing understanding of instructions given. 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
[2025-02-03 08:32] LABS: Prothrombin Time Whole Bld POC 18.2 sec (11.1-13.5); ~PT, ~INR - Anti Coag Clinic 1.5 (0.9-1.1)
== END 2025-02-03 08:45 | disposition home or self-care (01) ==
LOC: HO.ACS 08:17
PROVIDERS: PCP Internal Medicine; Visit Provider Internal Medicine Medical Oncology
DX: Z79.01 Long term (current) use of anticoagulants (principal)

== ENCOUNTER → 2025-02-03 08:17 | Outpatient (BNVA) | payer MEDICARE, SELFPAY | PROVIDERS: PCP Internal Medicine; Visit Provider Internal Medicine Medical Oncology | DX: I48.19 Other persistent atrial fibrillation (principal); Z51.81 Encounter for therapeutic drug level monitoring; Z79.01 Long term (current) use of anticoagulants | CPT/HCPCS: 85610; 99211 ==

== ENCOUNTER 2025-02-08 09:07 | Outpatient (AMB) | payer MEDICARE, SELFPAY ==
--- NOTE | 2025-02-08 09:22 | MHC.OFFVISCO ---
Intake Intake Visit Reasons: Anticoagulation Allergies amiodarone Adverse Reaction (Unknown, Verified 02/08/25 09:12) hypothyroidism Medication List - Last Reconciled 02/08/25 by Karen Park RN atorvastatin 40 mg PO BEDTIME digoxin 125 mcg PO DAILY diltiazem HCl CD 240 mg PO DAILY furosemide 20 mg PO DAILY [JUXTA LITE Compression As directed] lisinopril 40 mg PO DAILY metoprolol succinate ER 200 mg PO DAILY psyllium husk (Fiber (psyllium husk)) 1.04 grams (2 x 0.52 gram) PO DAILY warfarin 5 mg See Protocol PO DAILY Nursing Note INR: 2.0 in therapeutic range Medications and supplements reviewed No changes in health, diet, medications, or supplements, Denies any signs and symptoms of bleeding or bruising or clotting. Bleeding, bruising, clotting discussed Nutritional guidance given Dose:RESUME USUAL DOSE 2.5MG MWF/ 5MG X 4 DAYS - DATES PUT ON DOSING SCHEDULE TO MAKE SURE HE DOESNT MISS, HE HAS NOT STARTED A PILL BOX YET F/U INR: 2 WEEKS Patient verbalizes understanding of instructions given Anti-Coag Initial Assessment Social Hx Patient Tobacco Use Status: Former Tobacco user Tobacco use type: Cigarette alcohol intake: current Alcohol intake frequency: a few times a week Coding Level of Care Code Est Patient Level 1 Diagnoses Current use of anticoagulant therapy Z79.01 Results AMB INR Fingerstick AMB INR Fingerstick 2.0 Last Edit by Karen Park RN on 02/08/25 09:13 MANUAL ENTRY Assessment & Plan Assessment & Plan (1) Current use of anticoagulant therapy: Code(s): 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
--- OUTSIDE RECORDS SUMMARY | 2025-02-08 10:01 | XMS_ITS | Clinical Summary ---
Author Organization 175 [facility] Address [address] [place] [address] Phone Care Team Providers Care Telecasting Engineer Name Role Phone Carter Garg MD Primary Care Provider [phone] Allergies No known active allergies Medications No [...] [employer] [place] [employer] Care Teams Telecasting Engineer Relationship Specialty Start Date End Date Carter Garg MD [address] [place] [address] [address] [facility] [place] [address] PCP - General Internal Medicine 04/20/24
[2025-02-09 08:49] LABS: Prothrombin Time Whole Bld POC 24.0 sec (11.1-13.5); ~PT, ~INR - Anti Coag Clinic 2.0 (0.9-1.1)
== END 2025-02-08 09:25 | disposition home or self-care (01) ==
LOC: HO.ACS 09:07
PROVIDERS: PCP Internal Medicine; Visit Provider Internal Medicine Medical Oncology
DX: Z79.01 Long term (current) use of anticoagulants (principal)

== ENCOUNTER → 2025-02-08 09:07 | Outpatient (BNVA) | payer MEDICARE, SELFPAY | PROVIDERS: PCP Internal Medicine; Visit Provider Internal Medicine Medical Oncology | DX: I48.19 Other persistent atrial fibrillation (principal); Z79.01 Long term (current) use of anticoagulants; Z51.81 Encounter for therapeutic drug level monitoring | CPT/HCPCS: 85610; 99211 ==